=== PATIENT | female | born 1965 | race Caucasian/White ===

== ENCOUNTER 2024-10-12 14:30 | Emergency (ER) | payer OTHER, SELFPAY ==
--- NOTE | 2024-10-12 14:35 | ED_ITS ---
HPI - URI/Sore Throat General Chief Complaint: Upper Respiratory Infection Stated Complaint: Cough/Ear Pain/Body Aches Time Seen by Provider: 10/12/24 14:35 Source: patient Mode of arrival: ambulatory Limitations: no limitations History of Present Illness HPI Narrative: Patient is a 59-year-old female who presents with over 2 weeks of cough, chest congestion, ear pain, sore throat and intermittent fever. Denies any nausea, vomiting, diarrhea. Has taken [id number] medication with no relief. Related Data Home Medications ?Medication ?Instructions ?Recorded ?Confirmed ?Last Taken ?Type buspirone 15 mg tablet mg 10/12/24 Unknown History carvedilol 3.125 mg tablet mg 10/12/24 Unknown History escitalopram oxalate 20 mg tablet mg 10/12/24 Unknown History glimepiride 1 mg tablet mg 10/12/24 Unknown History lisinopril 40 mg tablet mg 10/12/24 Unknown History metformin 1,000 mg tablet mg 10/12/24 Unknown History Allergies Allergy/AdvReac Type Severity Reaction Status Date / Time atenolol Allergy Unknown HIVES Verified 06/17/18 15:01 Review of Systems Review of Systems: All systems reviewed & are unremarkable except as noted in HPI and below Constitutional: Constitutional: Denies chills, Denies fatigue, Reports fever(s), Denies headache(s), Denies malaise and Denies weakness Eyes: Eyes: Denies blurry vision, Denies itchy eyes and Denies loss of vision ENT: Reports otalgia, Denies headache(s), Reports nasal congestion, Denies sinus pain and Denies sore throat Cardiovascular: Cardiovascular: Denies chest pain, Denies irregular heart rhythm and Denies dyspnea Respiratory: Respiratory: Reports chest congestion, Reports cough and Denies dyspnea Gastrointestinal: Gastrointestinal: Denies abdominal pain, Denies diarrhea, Denies nausea and Denies vomiting Musculoskeletal: Musculoskeletal: Denies back pain, Denies myalgias and Denies arthralgias Integumentary/Breasts: Skin/Breast: Denies pruritus and Denies rash Neurologic: Denies headache(s), Denies loss of vision and Denies weakness Psychiatric: Psychiatric: Reports no additional psychiatric complaints Endocrine: Endocrine: Denies fatigue Allergic/Immunologic: Allergic/Immunologic: Denies itchy eyes PMFSH Comments At time of signature, agree with nursing past medical, surgical, social and family history. There is no relevant family history pertinent to the presenting complaint. Exam Const: General: cooperative, healthy appearing, comfortable, no acute distress and well nourished Nutritional Appearance: well nourished Orientation/consciousness: patient oriented x3 Limitations: no limitations HENMT: Head: normal to inspection, normocephalic and atraumatic Ears: hearing grossly normal bilaterally, external ears normal, TM's normal bilaterally, EAC's normal and no periauricular adenopathy Face/Nose/Sinus: Normal external nose present, Abnormal mucous membranes and turbinates present erythematous bilateral and diffuse, normal facial exam, sinuses nontender and face symmetric Face and sinus: normal facial exam, sinuses nontender and face symmetric Mouth: Yes Normal oral and palatal mucosa present, Yes lip normal, Yes tongue normal, Yes Normal salivary glands and ducts present, Yes oropharynx normal and Yes moist mucous membranes Teeth and gingiva: dentition normal Throat: posterior oropharynx normal, tonsils normal and uvula midline Eyes: General: appearance normal, both eyes and all related structures Alignment and Position: alignment normal and position normal Periorbital: periorbital findings normal Eyelids: eyelids normal Pupils: Equal, round and reactive pupils present Neck: Neck: normal visual inspection, full ROM, no lymphadenopathy and supple Chest: Chest palpation & inspection: normal inspection of the chest and normal palpation of entire chest wall Resp: Effort & Inspection: normal respiratory effort, able to speak in com plete sentences and Actively coughing actively coughing Auscultation: clear to auscultation bilaterally, no crackles, no rales, no rhonchi and no wheezes Cardio: Rate: regular rate Rhythm: regular rhythm Heart sounds: S1 normal heart sound present and S2 normal heart sound present GI: Inspection: normal to inspection Skin: General skin exam: normal color and no rashes or lesions noted Neuro: General: patient oriented x3 and moves all extremities Cranial nerves: Yes Equal, round and reactive pupils present Speech: normal speech Gait exam (Neuro): Normal gait present Extrem: General: normal to inspection, full ROM and no edema Psych: Appearance: grossly normal and well kempt Mental Status: mental status grossly normal Speech and movement: Normal speech and movement present Affect: normal affect Attitude: cooperative Thought process: Normal thought process present Course Course Emergency Course: Discharge instructions reviewed with patient, as well as provided in writing per nursing staff. The instructions also include specific and strict return/GO TO THE ER as well as f/u information. All questions have been answered, and the patient deny any further questions with discharge and discharge plan. Portions of this record may have been created with voice recognition software Level of Care: Express Care Visit Vital Signs Vital signs: Reviewed MDM - URI/Sore Throat MDM Narrative Medical decision making narrative: Pt well hydrated appearing, in no respiratory distress, hemodynamically stable. Recommend supportive care. The patient is stable at time of discharge the clinical impression was discussed and the patient was given the opportunity to ask questions, which were addressed as completely as possible given the information available at present. Anticipatory guidance and return to care precautions were discussed and the importance of primary care follow-up was stressed and encouraged. The patient voiced understanding of the plan, indications to return, and the need for follow-up. Differential diagnosis considered: Bronchitis, Norris virus, strep pharyngitis, allergic rhinitis, upper respiratory tract infection, sinusitis, rhinosinusitis, nasopharyngitis. viral pharyngitis, otitis media, otitis externa, otitis effusion, foreign body, cerumen impaction, viral syndrome, and influenza.? Exam findings show no acute concerns or changes; patient is non-toxic appearing and is in no distress.? Patient is appropriate for outpatient treatment and follow- up.? Medical Records Attestation: I reviewed the patient's medical records. Discharge Plan Discharge Clinical Impression: Upper respiratory infection with cough and congestion Patient Disposition: Home, Self-Care Condition: Stable Instructions: Upper Respiratory Infection (ED) Additional Instructions: Take antibiotic as prescribed. Take steroids in the morning with food. Use Tessalon Perles as needed for cough. Other symptomatic treatments include: -Alternate Tylenol and Motrin per package directions for fever or pain: Tylenol 650-1000mg by mouth every 4-6 hours. Do not exceed 4000mg in 24 hours. Advil (Ibuprofen) 600 mg by mouth every 6 hours. Do not exceed 2400mg in 24 hours. 8 AM: Tylenol 11 AM: Ibuprofen 2 PM: Tylenol 5 PM: Ibuprofen 8 PM: Tylenol 11 PM: Ibuprofen 2 AM: Tylenol 5 AM: Ibuprofen -Antihistamine medication such as Benadryl at night and Zyrtec/Claritin/Corrina during the day can help improve symptoms. -Use Flonase twice a day for 5 days then daily to help reduce the inflammation and dry up your sinuses. -You can also use Sudafed or Mucinex. Be sure to drink plenty of water with these medications at least 8 ounces with every dose and it is important to drink 8 to 10 glasses of water per day. Water is a natural decongestant -Eat and drink things that are easy to swallow, like tea or soup, or popsicles. -Oral rinses such as: Salt water gargles and/or may use topical anesthetic (eg. Chloraseptic spray) or lozenges to relieve dryness or throat pain). -Frequent hand washing or hand commercial makeup artist is one of the best ways to prevent spread of infection. -Using a vaporizer or humidifier at night will also help thin secretions and help with coughing up phlegm. Call your Primary Care Doctor and make a follow-up appointment in 3 days. If your cough worsens, you develop a fever greater than 103, you develop shaking chills, a fast heartbeat, trouble breathing and/or feel you are are breathing much faster than usual, call your Primary Care Doctor or go to the ER. Patient Language: Indonesian Prescriptions: New prednisone 20 mg tablet 40 mg PO DAILY 5 Days Qty: 10 0RF amoxicillin 875 mg tablet 875 mg PO Q12H 7 Days Qty: 14 0RF benzonatate 100 mg capsule 100 mg PO BID PRN (Reason: cough) Qty: 14 0RF No Action carvedilol 3.125 mg tablet glimepiride 1 mg tablet metformin 1,000 mg tablet lisinopril 40 mg tablet buspirone 15 mg tablet escitalopram oxalate 20 mg tablet Follow-up/Referrals: Lina,Tristan García MD [Primary Care Provider] - 3 Days Stand Alone Forms: Work/School Release IP Time of Disposition: 15:10
--- OUTSIDE RECORDS SUMMARY | 2024-10-12 14:35 | XMS_ITS | Encounter Summary ---
Author Organization [facility] Address [address] [place] [address] Phone Care Team Providers Care Lease Analyst Name Role Phone Tristan Mills MD Primary Care Provider [phone] Laura Michaels MD Unavailable [phone] Cristofer Wilson MD Unavailable [phone] Esteban Carpenter MD Unavailable Mejia Ayon MD Unavailable Reason for Visit * Reason Comments Medication Refill Encounter Details Date Type Department Care Team (Late st Contact Info) Description 11/21/2023 Refill [facility] - Family Medicine [facility] [address] [place] [id number] Tristan Mills MD [address] [address] Medication Refill Social History Tobacco Use Types Packs/Day Years Used Date Smoking Tobacco: Never Smokeless Tobacco: Never Alcohol Use Standard Drinks/Week Comments Yes 1 (1 standard drink = 0.6 oz pur e alcohol) Socially [facility] Utilities Answer Date Recorded In the past 12 months has [employer] electric, gas, oil, or water company threatened to shut off services in your home? Yes 09/13/2023 Social Connection and Isolat ion Panel [NHANES] Answer Date Recorded In a typical week, how many times do you talk on the phone with family, friends, or neighbors? Once a week 09/13/2023 How often do you get togethe r with friends or relatives? Once a week 09/13/2023 How often do you attend chur ch or temple services? More than 4 times per year 09/13/2023 Do you belong to any clubs o r organizations such as baptist groups, unions, fraternal or athletic groups, or school groups? No 09/13/2023 How often do you attend meet ings of the clubs or organizations you belong to? Patient declined 09/13/2023 Are you , , di vorced, , never , or living with a partner? 09/13/2023 AUDIT-C Answer Date Recorded Q1: How often do you have a drink containing alc ohol? Monthly or less 09/13/2023 Q2: How many drinks containi ng alcohol do you have on a typical day when you are drinking? 1 or 2 09/13/2023 Q3: How often do you have si x or more drinks on one occasion? Never 09/13/2023 Overall Financial Resource Strain (CARDIA) Answe r Date Recorded How hard is it for you to pa y for the very basics like food, housing, medical care, and heating? Somewhat hard 09/13/2023 PHQ-2 Answer Date Recorded Total Score - Questions 1-9 0 04/22 [facility] - Occupational Stress Questionnaire Answer Date Recorded Do you feel stress - tense, restless, nervous, or anxious, or unable to sleep at night because your mind is troubled all the time - these days? Only a little 09/13/2023 Exercise Vital Sign Answer Date Recorde d On average, how many days pe r week do you engage in moderate to strenuous exercise (like a brisk walk)? 0 days On average, how many minutes do you engage in exercise at this level? Patient declined 09/13/2023 Hunger Vital Sign Answer Date Recorded Within the past 12 months, y ou worried that your food would run out before you got the money to buy more. Never true 09/13/19 24 Within the past 12 months, t he food you bought just didn't last and you didn't have money to get more. Never true 09/13/2023 PRAPARE - Transportation Answer Date Re corded In the past 12 months, has l ack of transportation kept you from medical appointments or from getting medications? No 08/23 In the past 12 months, has l ack of transportation kept you from meetings, work, or from getting things needed for daily living? No 09/13/2023 Housing Stability Vital Sign Answer Nicanor e Recorded In the last 12 months, was t here a time when you were not able to pay the mortgage or rent on time? Yes 09/13/2023 In the last 12 months, how many places have you lived? 1 09/13/2023 In the last 12 months, was t here a time when you did not have a steady place to sleep or slept in a fpc (including now)? No 09/13/2023 Education Answer Date Recorded What is the highest level of school you have completed or the highest degree you have received? 12th grade 05/02/2023 Sexually Active Control Partners Comments Not Currently Male Comments No Sex and Gender Information Value Date Recorded Sex Assigned at Not on file Legal Sex Female 8:48 PM CDT Gender Identity Not on file Sexual Orientation Not on file documented as of this encounter Miscellaneous Notes * Telephone Encounter - Magda Bryson RN - 11/22/2023 4:50 PM CDT Medication failed the protocol, provider to review and approve the medication order if appropriate. Requested Prescriptions Pending Prescriptions Disp Refills cyclobenzaprine (FLEXERIL) 5 MG Tablet [Pharmacy Med Name: CYCLOBENZAPRINE 5 MG TABLET] 90 Tablet 0 Sig: TAKE 1 TABLET BY MOUTH THREE TIMES A DAY NEEDED FOR MUSCLE SPASM Not Delegated - Muscle Relaxants Protocol Failed - 11/21/2023 6:28 PM Failed - This refill cannot be delegated Passed - Visit with relevant provider in past 12 months or upcoming 90 days Recent Visits Date Type Provider Dept 09/19/23 Office Visit Tristan Mills MD [facility] 09/19/23 Procedure Visit [facility] 09/13/23 [facility] Office Visit Vinicius Humphrey MD [facility] 05/02/23 Office Visit Brooks Vazquez APRN, SENIOR JAVA PROGRAMMER [facility] Showing recent visits within past 365 days and meeting all other requirements Future Appointments Date Type Provider Dept 12/20/23 Appointment Tristan Mills MD [facility] Showing future appointments within next 90 days and meeting all other requirements metFORMIN (GLUCOPHAGE) 1000 MG Tablet [Pharmacy Med Name: METFORMIN HCL 1,000 MG TABLET] 180 Tablet1 Sig: TAKE 1 TABLET BY MOUTH TWICE A DAY WITH FOOD Biguanides Protocol Failed - 11/21/2023 6:28 PM Failed - HgA1C on record in past 6 months No results found for: HGBA1C Passed - Visit with relevant provider in past 6 months or upcoming 90 days Recent Visits Date Type Provider Dept 09/19/23 [facility] Office Visit Tristan Mills MD [facility] Showing recent visits within past 182 days and meeting all other requirements Future Appointments Date Type Provider Dept 12/20/23 Appointment Tristan Mills MD [facility] Showing future appointments within next 90 days and meeting all other requirements Passed - GFR on record in past 6 months GFR, EST. NONAFRICAN Date Value Ref Range Status 09/17/2023 56 (L) >=60 Final documented in this encounter Plan of Treatment Not on file documented as of this encounter Visit Diagnoses Not on filedocumented in this encounter Additional Health Concerns Assessment Noted Time PHQ-9 Depression Total Score: 0 05/06/20 23 2:49 PM CDT documented as of this encounter Care Teams Lease Analyst Relationship Specialty Start Date End Date Tristan Mills MD #[address] [address] PCP - General Family Medicine 09/01/17 Laura Michaels MD #[address] [address] Consulting Physician Urology 09/25/18 Cristofer Wilson MD #[address] [address] General Surgery 09/25/18 Esteban Carpenter MD #[address] [address] Consulting Physician Colon and Rectal Surgery 10/06/23 Mejia Ayon MD #[address] [id number] Consulting Physician Urology 02/29/24 documented as of this encounter
--- OUTSIDE RECORDS SUMMARY | 2024-10-12 14:35 | XMS_ITS | Encounter Summary ---
Author Organization [facility] Address [address] [place] [address] Phone Care Team Providers Care Track Welder Name Role Phone Tristan Mills MD Primary Care Provider [phone] Laura Michaels MD Unavailable [phone] Cristofer Wilson MD Unavailable [phone] Esteban Carpenter MD Unavailable Mejia Ayon MD Unavailable Reason for Visit * Reason Comments Medication Refill Encounter Details Date Type Department Care Team (Late st Contact Info) Description 06/22/2020 Refill [facility] [address] [place] [address] Tristan Mills MD #[address] [address] Medication Refill Social History Tobacco Use Types Packs/Day Years Used Date Smoking Tobacco: Never Smokeless Tobacco: Never Alcohol Use Standard Drinks/Week Comments Yes 1 (1 standard drink = 0.6 oz pur e alcohol) socially PHQ-2 Answer Date Recorded PHQ-2 Score 0 04/25/2019 Sexually Active Control Partners Comments Yes Male Comments No Sex and Gender Information Value Date Recorded Sex Assigned at Not on file Legal Sex Female 8:48 PM CDT Gender Identity Not on file Sexual Orientation Not on file COVID-19 Exposure Response Date Recorded In the last month, have you been in contact with someone who was confirmed or suspected to have Coronavirus / COVID-19? No / Unsure 06/25/2020 4:11 PM PLASTIC DUPLICATOR documented as of this encounter Miscellaneous Notes * Telephone Encounter - Anayeli Gamboa RN - 06/23/2020 10:54 AM CST Medication failed the protocol, provider to review and approve the medication order if appropriate. Requested Prescriptions Pending Prescriptions Disp Refills escitalopram (LEXAPRO) 20 MG Tablet [Pharmacy Med Name: Escitalopram Oxalate 20 MG Oral Tablet] 90 Tab 0 Sig: Take 1 tablet by mouth once daily Not Delegated - Psychiatry: Antidepressants Failed - 06/22/2020 1:29 PM Failed - This refill cannot be delegated Passed - Valid encounter within last 12 months Past Office Visits Recent Outpatient Visits 3 weeks ago Essential hypertension [facility] - Brooks Raphael APN, CNP 1 month ago Nephrolithiasis [facility] Brooks Raphael APN, CNP 3 months ago Anxiety [facility] - Tristan Lcuiano MD 7 months ago Diabetes mellitus type 2, noninsulin dependent (HCC) [facility] Tristan Luciano MD 11 months ago Diabetes mellitus type 2, noninsulin dependent (HCC) [facility] Tristan Luciano MD Upcoming Appointments Future Appointments In 2 months Tristan Mills MD [facility] [place] [facility] AIR TOOL OPERATOR - Recent and Past Visits Recent Visits Date Type Provider Dept 06/02/20 Office Visit Brooks Vazquez APN, CNP [facility] 05/21/20 Office Visit Brooks Vazquez APN, CNP [facility] 02/29/20 Office Visit Tristan Mills MD [facility] 10/30/19 Office Visit Tristan Mills MD [facility] 07/26/19 Office Visit Tristan Mills MD [facility] 05/28/19 Office Visit Magaly Casey PAC [facility] [place] 04/26/19 Office Visit Tristan Mills MD [facility] Showing recent visits within past 460 days with a meds authorizing provider and meeting all other requirements Future Appointments Date Type Provider Dept 09/02/20 Appointment Tristan Mills MD [facility] Showing future appointments within next 90 days with a meds authorizing provider and meeting all other requirements lisinopril (PRINIVIL, ZESTRIL) 40 MG Tablet [Pharmacy Med Name: Lisinopril 40 MG Oral Tablet] 180 Tab 0 Sig: Take 1 tablet by mouth twice daily Cardiovascular: BART Inhibitors Passed - 06/22/2020 1:29 PM Passed - Valid encounter within last 12 months Past Office Visits Recent Outpatient Visits 3 weeks ago Essential hypertension [facility] Brooks Raphael APN, ELECTRONIC ASSEMBLER 1 month ago Nephrolithiasis [facility] Brooks Raphael APN, ELECTRONIC ASSEMBLER 3 months ago [facility] Luc[facility] 7 months ago Diabetes mellitus type 2, noninsulin dependent (HCC) [facility] Tristan Luciano MD 11 months ago Diabetes mellitus type 2, noninsulin dependent (HCC) [facility] Tristan Nasciemnto MD Upcoming Appointments Future Appointments In 2 months Tristan Mills MD [facility] [place] [facility] AIR TOOL OPERATOR - Recent and Past Visits Recent Visits Date Type Provider Dept 06/02/20 Office Visit Brooks Vazquez APN, [facility] 05/21/20 Office Visit Brooks Vazquez APN, [facility] 02/29/20 Office Visit Tristan Mills MD [facility] 10/30/19 Office Visit Tristan Mills MD [facility] 07/26/19 Office Visit Tristan Mills MD [facility] 05/28/19 Office Visit Magaly Casey PAC [facility] 04/26/19 Office Visit Tristan Mills MD [facility] Showing recent visits within past 460 days with a meds authorizing provider and meeting all other requirements Future Appointments Date Type Provider Dept 09/02/20 Appointment Tristan Mills MD [facility] Showing future appointments within next 90 days with a meds authorizing provider and meeting all other requirements Passed - Last BP in normal range BP Readings from Last 1 Encounters: 06/02/20 96/76 metFORMIN (GLUCOPHAGE) 1000 MG Tablet [Pharmacy Med Name: metFORMIN HCl 1000 MG Oral Tablet] 180 Tab 0 Sig: TAKE 1 TABLET BY MOUTH TWICE DAILY WITH MEALS Endocrinology: Diabetes - Biguanides Passed - 06/22/2020 1:29 PM Passed - Valid encounter within last 12 months Past Office Visits Recent Outpatient Visits 3 weeks ago Essential hypertension [facility] - Brooks Raphael APN, ELECTRONIC ASSEMBLER 1 month ago Nephrolithiasis [facility] Brooks Raphael APN, ELECTRONIC ASSEMBLER 3 months ago Anxiety [facility] - Tristan Luciano MD 7 months ago Diabetes mellitus type 2, noninsulin dependent (HCC) [facility] Tristan Nascimento MD 11 months ago Diabetes mellitus type 2, noninsulin dependent (HCC) [facility] Tristan Nascimento MD Upcoming Appointments Future Appointments In 2 months Tristan Mills MD [facility] [place] [facility] AIR TOOL OPERATOR - Recent and Past Visits Recent Visits Date Type Provider Dept 06/02/20 Office Visit Brooks Vazquez APN, [facility] 05/21/20 Office Visit Brooks Vazquez APN, [facility] 02/29/20 Office Visit Tristan Mills MD [facility] 10/30/19 Office Visit Tristan Mills MD [facility] 07/26/19 Office Visit Tristan Mills MD [facility] 05/28/19 Office Visit Magaly Casey, [facility] 04/26/19 Office Visit Tristan Mills MD [facility] Showing recent visits within past 460 days with a meds authorizing provider and meeting all other requirements Future Appointments Date Type Provider Dept 09/02/20 Appointment Tristan Mills MD [facility] Showing future appointments within next 90 days with a meds authorizing provider and meeting all other requirements Passed - Last BP in normal range BP Readings from Last 1 Encounters: 06/02/20 96/76 TIC DUPLICATOR documented in this encounter Plan of Treatment Not on file documented as of this encounter Visit Diagnoses Not on filedocumented in this encounter Additional Health Concerns Infection Onset Date Last Indicated Resolved Time COVID - 19 03/06/2021 03/06/2021 03/07/2021 8:43 AM CDT COVID - 19 08/13/2021 08/17/2021 09/06/2021 12:1 6 AM PLASTIC DUPLICATOR COVID - 19 Confirmed 08/17/2021 08/17/2021 022 12:16 AM PLASTIC DUPLICATOR COVID - 19 04/11/2022 04/11/2022 04/21/2022 12:1 6 AM CDT COVID - 19 07/28/2022 07/28/2022 08/07/2022 12:1 6 AM PLASTIC DUPLICATOR Influenza 07/28/2022 07/28/2022 08/04/2022 12:1 6 AM PLASTIC DUPLICATOR Respiratory Rule Out - RPA 06/23/2023 06/23/2023 1 08/23/2022 5:23 PM CDT COVID - 19 09/28/2023 09/28/2023 10/08/2023 12:1 6 AM PLASTIC DUPLICATOR Assessment Noted Time PHQ-9 Depression Total Score: 0 10/30/19 20 3:24 PM CDT documented as of this encounter Care Teams Track Welder Relationship Specialty Start Date End Date Tristan Mills MD #2 [facility] [address] [place] [address] PCP - General Family Medicine 09/01/17 Laura Michaels MD #2 [facility] [address] [place] [address] Consulting Physician Urology 09/25/18 Cristofer Wilson MD #2 [facility] [address] [place] [address] General Surgery 09/25/18 Esteban Carpenter MD #2 [facility] [address] [place] [address] Consulting Physician Colon and Rectal Surgery 10/06/23 Mejia Ayon MD #2 [facility] [address] [place] [address] Consulting Physician Urology 02/29/24 documented as of this encounter
--- OUTSIDE RECORDS SUMMARY | 2024-10-12 14:35 | XMS_ITS | Encounter Summary ---
Author Organization [facility] Address [address] [place] [address] Phone Care Team Providers Care Director Revenue Name Role Phone Tristan Mills MD Primary Care Provider [phone] Laura Michaels MD Unavailable [phone] Cristofer Wilson MD Unavailable [phone] Esteban Carpenter MD Unavailable Mejia Ayon MD Unavailable Reason for Visit * Reason Comments Medication Refill Encounter Details Date Type Department Care Team (Late st Contact Info) Description 07/30/2021 Refill [facility] [address] [place] [address] Tristan Mills MD #[address] [address] Medication Refill Social History Tobacco Use Types Packs/Day Years Used Date Smoking Tobacco: Never Smokeless Tobacco: Never Alcohol Use Standard Drinks/Week Comments Yes 1 (1 standard drink = 0.6 oz pur e alcohol) Socially PHQ-2 Answer Date Recorded Total Score - Questions 1-9 0 08/22 Sexually Active Control Partners Comments Not Currently [...] have Coronavirus / COVID-19? No / Unsure 07/24/2021 1:43 PM LACTATION NURSE documented as of this encounter Miscellaneous Notes * Telephone Encounter - Magda Bryson RN - 07/31/2021 7:59 AM CST Medication failed the protocol, provider to review and approve the medication order if appropriate. Requested Prescriptions Pending Prescriptions Disp Refills glimepiride (AMARYL) 1 MG Tablet [Pharmacy Med Name: GLIMEPIRIDE 1 MG TABLET] 90 Tablet 1 Sig: TAKE 1 TABLET BY MOUTH EVERY DAY IN THE MORNING Sulfonylureas Protocol Failed - 07/30/2021 12:03 AM Failed - HgA1C on record in past 6 months HGB-A1C Date Value Ref Range Status 08/30/2020 6.7 (H) 4.0 - 6.0 % Final Failed - GFR on record in past 6 months GFR, EST. NONAFRICAN Date Value Ref Range Status 05/20/2020 55 (L) >=60 Final Passed - Visit with relevant provider in past 6 months or upcoming 90 days Recent Visits Date Type Provider Dept 07/24/21 Office Visit Brooks Vazquez APRN, PRODUCTION CONTROL PEGBOARD CLERK [facility] [place] Showing recent visits within past 182 days and meeting all other requirements Future Appointments Date Type Provider Dept 10/22/21 Appointment Tristan Mills MD [facility] [place] Showing future appointments within next 90 days and meeting all other requirements ATION NURSE documented in this encounter Plan of Treatment Not on file documented as of this encounter Visit Diagnoses Not on filedocumented in this encounter Additional Health Concerns Infection Onset Date Last Indicated Resolved Time COVID - 19 08/13/2021 08/17/2021 09/06/2021 12:1 6 AM LACTATION NURSE COVID - 19 Confirmed 08/17/2021 08/17/2021 022 12:16 AM LACTATION NURSE COVID - 19 04/11/2022 04/11/2022 04/21/2022 12:1 6 AM CDT COVID - 19 07/28/2022 07/28/2022 08/07/2022 12:1 6 AM LACTATION NURSE Influenza 07/28/2022 07/28/2022 08/04/2022 12:1 6 AM LACTATION NURSE Respiratory Rule Out - RPA 06/23/2023 06/23/2023 1 08/23/2022 5:23 PM CDT COVID - 19 09/28/2023 09/28/2023 10/08/2023 12:1 6 AM LACTATION NURSE Assessment Noted Time PHQ-9 Depression Total Score: 0 09/02/19 3:57 PM LACTATION NURSE documented as of this encounter Care Teams Director Revenue Relationship Specialty Start Date End Date Tristan Mills MD #2 [facility] [address] [place] [address] PCP - General Family Medicine 09/01/17 Laura Michaels MD #2 [facility] [address] [place] [address] Consulting Physician Urology 09/25/18 Cristofer Wilson MD #2 [facility] [address] [place] [address] General Surgery 09/25/18 Esteban Carpenter MD #2 [facility] [address] [place] [address] Consulting Physician Colon and Rectal Surgery 10/06/23 Mejia Ayon MD #2 [facility] [address] [place] [id number] Consulting Physician Urology 02/29/24 documented as of this encounter
--- OUTSIDE RECORDS SUMMARY | 2024-10-12 14:35 | XMS_ITS | Encounter Summary ---
Author Organization [facility] Address [address] [place] [address] Phone Care Team Providers Care Manager Of Business Name Role Phone Tristan Mills MD Primary Care Provider [phone] Laura Michaels MD Unavailable [phone] Cristofer Wilson MD Unavailable [phone] Esteban Carpenter MD Unavailable Mejia Ayon MD Unavailable Reason for Visit * Reason Comments Medication Refill Encounter Details Date Type Department Care Team (Late st Contact Info) Description 08/25/2021 Refill [facility] #[address] [place] [id number] Tristan Mills MD #[address] [address] Medication Refill Social History Tobacco Use Types [...] have Coronavirus / COVID-19? No / Unsure 08/13/2021 11:11 AM HEALTH SAFETY AND ENVIRONMENT MANAGER documented as of this encounter Miscellaneous Notes * Telephone Encounter - Holly Mcintosh RN - 08/25/2021 12:41 PM CST Medication failed the protocol, provider to review and approve the medication order if appropriate. Requested Prescriptions Pending Prescriptions Disp Refills lisinopril (PRINIVIL, ZESTRIL) 40 MG Tablet [Pharmacy Med Name: LISINOPRIL 40 MG TABLET] 90 Tablet 3 Sig: TAKE 1/2 TABLET BY MOUTH TWICE DAILY BART Inhibitors Protocol Failed - 08/25/2021 12:00 AM Failed - Serum potassium on record in past 12 months POTASSIUM Date Value Ref Range Status 05/20/2020 5.0 3.5 - 5.1 mmol/L Final Failed - GFR on record in past 12 months GFR, EST. NONAFRICAN Date Value Ref Range Status 05/20/2020 55 (L) >=60 Final Passed - Blood pressure on record in past 12 months Clinician-entered: BP Readings from Last 3 Encounters: 07/24/21 126/72 03/06/21 96/78 09/02/20 128/82 Patient-entered: No data recorded Passed - Visit with relevant provider in past 12 months or upcoming 90 days Recent Visits Date Type Provider Dept 07/24/21 Office Visit Brooks Vazquez APRN, [facility] 09/02/20 Office Visit Tristan Mills MD [facility] Showing recent visits within past 365 days and meeting all other requirements Future Appointments Date Type Provider Dept 10/22/21 Appointment Tristan Mills MD [facility] Showing future appointments within next 90 days and meeting all other requirements TH SAFETY AND ENVIRONMENT MANAGER documented in this encounter Plan of Treatment Not on file documented as of this encounter Visit Diagnoses Not on filedocumented in this encounter Additional Health Concerns Infection Onset Date Last Indicated Resolved Time COVID - 19 08/13/2021 08/17/2021 09/06/2021 12:1 6 AM HEALTH SAFETY AND ENVIRONMENT MANAGER COVID - 19 Confirmed 08/17/2021 08/17/2021 022 12:16 AM HEALTH SAFETY AND ENVIRONMENT MANAGER COVID - 19 04/11/2022 04/11/2022 04/21/2022 12:1 6 AM CDT COVID - 19 07/28/2022 07/28/2022 08/07/2022 12:1 6 AM HEALTH SAFETY AND ENVIRONMENT MANAGER Influenza 07/28/2022 07/28/2022 08/04/2022 12:1 6 AM HEALTH SAFETY AND ENVIRONMENT MANAGER Respiratory Rule Out - RPA 06/23/2023 06/23/2023 1 08/23/2022 5:23 PM CDT COVID - 19 09/28/2023 09/28/2023 10/08/2023 12:1 6 AM HEALTH SAFETY AND ENVIRONMENT MANAGER Assessment Noted Time PHQ-9 Depression Total Score: 0 09/02/19 3:57 PM HEALTH SAFETY AND ENVIRONMENT MANAGER documented as of this encounter Care Teams Manager Of Business Relationship Specialty Start Date End Date Tristan Mills MD #2 [facility] [address] [place] [address] PCP - General Family Medicine 09/01/17 Laura Michaels MD #2 [facility] [address] [place] [address] Consulting Physician Urology 09/25/18 Cristofer Wilson MD #2 [facility] [address] [place] [address] General Surgery 09/25/18 Esteban Carpenter MD #2 [facility] [address] [place] [address] Consulting Physician Colon and Rectal Surgery 10/06/23 Mejia Ayon MD #[address] [address] Consulting Physician Urology 02/29/24 documented as of this encounter
--- OUTSIDE RECORDS SUMMARY | 2024-10-12 14:35 | XMS_ITS | Encounter Summary ---
Author Organization [facility] Address [address] [place] [address] [address] Phone Care Team Providers Care Steel Rule Die Maker Name Role Phone Tristan Mills MD Primary Care Provider [phone] Laura Michaels MD Unavailable [phone] Cristofer Wilson MD Unavailable [phone] Esteban Carpenter MD Unavailable Mejia Ayon MD Unavailable Reason for Visit * Reason Comments Medication Refill Encounter Details Date Type Department Care Team (Late st Contact Info) Description 05/26/2020 [facility] [address] [place] [address] Tristan Mills MD #[address] [address] Medication Refill Social History Tobacco Use Types [...] have Coronavirus / COVID-19? No / Unsure 05/21/2020 3:36 PM CDT documented as of this encounter Miscellaneous Notes * Telephone Encounter - Lucina Vick - 05/27/2020 10:52 AM CDT Unable to sign per policy Routing for provider review and approval Thanks! documented in this encounter Plan of Treatment Not on file documented as of this encounter Visit Diagnoses Not on filedocumented in this encounter Additional Health Concerns Infection Onset Date Last Indicated Resolved Time COVID - 19 03/06/2021 03/06/2021 03/07/2021 8:43 AM CDT COVID - 19 08/13/2021 08/17/2021 09/06/2021 12:1 6 AM BUNCH TRIMMER MOLD COVID - 19 Confirmed 08/17/2021 08/17/2021 022 12:16 AM BUNCH TRIMMER MOLD COVID - 19 04/11/2022 04/11/2022 04/21/2022 12:1 6 AM CDT COVID - 19 07/28/2022 07/28/2022 08/07/2022 12:1 6 AM BUNCH TRIMMER MOLD Influenza 07/28/2022 07/28/2022 08/04/2022 12:1 6 AM BUNCH TRIMMER MOLD Respiratory Rule Out - RPA 06/23/2023 06/23/2023 1 08/23/2022 5:23 PM CDT COVID - 19 09/28/2023 09/28/2023 10/08/2023 12:1 6 AM BUNCH TRIMMER MOLD Assessment Noted Time PHQ-9 Depression Total Score: 0 10/30/19 20 3:24 PM CDT documented as of this encounter Care Teams Steel Rule Die Maker Relationship Specialty Start Date End Date Tristan Mills MD #2 [place] [address] PCP - General Family Medicine 09/01/17 Laura Michaels MD #2 [facility] [address] [place] [address] Consulting Physician Urology 09/25/18 Cristofer Wilson MD #2 [facility] [address] [place] [address] General Surgery 09/25/18 Esteban Carpenter MD #[address] [address] Consulting Physician Colon and Rectal Surgery 10/06/23 Mejia Ayon MD #2 [facility] [address] [place] [phone] Consulting Physician Urology 02/29/24 documented as of this encounter
--- OUTSIDE RECORDS SUMMARY | 2024-10-12 14:35 | XMS_ITS | Encounter Summary ---
Author Organization [facility] Address [address] [address] Phone Care Team Providers Care Copy And Print Associate Name Role Phone Tristan Mills MD Primary Care Provider [phone] Laura Michaels MD Unavailable [phone] Cristofer Wilson MD Unavailable [phone] Esteban Carpenter MD Unavailable Mejia Ayon MD Unavailable Reason for Visit * Reason Comments Medication Refill Encounter Details Date Type Department Care Team (Late st Contact Info) Description 11/27/2020 Refill [facility] #2 [place] [id number] Tristan Mills MD [address] [address] Medication Refill Social History Tobacco Use Types Packs/Day Years Used Date Smoking Tobacco: Never Smokeless Tobacco: Never Alcohol Use Standard Drinks/Week Comments Yes 1 (1 standard drink = 0.6 oz pur e alcohol) socially PHQ-2 Answer Date Recorded Total Score - Questions 1-9 0 08/22 Sexually Active Control Partners Comments Yes Male Comments No Sex and Gender Information Value Date Recorded Sex Assigned at Not on file Legal Sex Female 8:48 PM CDT Gender Identity Not on file Sexual Orientation Not on file documented as of this encounter Miscellaneous Notes * Telephone Encounter - Kristen Guallpa RN - 11/27/2020 10:38 AM CDT PDMP last fill date 11/09/20 Medication failed the protocol, provider to review and approve the medication order if appropriate. Requested Prescriptions Pending Prescriptions Disp Refills acetaminophen-codeine (TYLENOL #3) 300-30 MG Tablet [Pharmacy Med Name: ACETAMINOPHEN-COD #3 TABLET] 14 Tablet 4 Sig: TAKE 1 TABLET BY MOUTH TWICE A DAY NEEDED FOR PAIN Not Delegated - Analgesics: Opioid Agonist Combinations Failed - 11/27/2020 10:38 AM Failed - This refill cannot be delegated Passed - Valid encounter within last 6 months Past Office Visits Recent Outpatient Visits 2 months ago Diabetes mellitus type 2, noninsulin dependent (HCC) [facility] - Tristan Luciano MD 4 months ago Chronic right shoulder pain [facility] - Brooks Raphael APN, NILES 5 months ago Left inguinal hernia [facility] Tristan Luciano MD 5 months ago Essential hypertension [facility] - rBooks Raphael APN, NILES 6 months ago Nephrolithiasis [facility] - Brooks aRphael APN, SENIOR QUALITY METHODS SPECIALIST Upcoming Appointments Future Appointments In 5 days Tristan Mills MD [facility]ESS [facility]PER[facility] - Recent and Past Visits Recent Visits Date Type Provider Dept 09/02/20 Office Visit Tristan Mills MD [facility] 07/25/20 Office Visit Brooks Vazquez APN, NILES [facility] 06/25/20 Office Visit Tristan Mills MD [facility] 06/02/20 Office [place] [facility] 05/21/20 Office Visit Brooks Vazquez APN, SENIOR QUALITY METHODS SPECIALIST [facility] 02/29/20 Office Visit Tristan Mills MD [facility] 10/30/19 Office Visit Tristan Mills MD [facility] Showing recent visits within past 460 days with a meds authorizing provider and meeting all other requirements Future Appointments Date Type Provider Dept 12/02/20 Appointment Tristan Mills MD [facility] Showing future appointments within next 90 days with a meds authorizing provider and meeting all other requirements documented in this encounter Plan of Treatment Not on file documented as of this encounter Visit Diagnoses Not on filedocumented in this encounter Additional Health Concerns Infection Onset Date Last Indicated Resolved Time COVID - 19 03/06/2021 03/06/2021 03/07/2021 8:43 AM CDT COVID - 19 08/13/2021 08/17/2021 09/06/2021 12:1 6 AM GRADUATE INTERNSHIP COVID - 19 Confirmed 08/17/2021 08/17/2021 022 12:16 AM GRADUATE INTERNSHIP COVID - 19 04/11/2022 04/11/2022 04/21/2022 12:1 6 AM CDT COVID - 19 07/28/2022 07/28/2022 08/07/2022 12:1 6 AM GRADUATE INTERNSHIP Influenza 07/28/2022 07/28/2022 08/04/2022 12:1 6 AM GRADUATE INTERNSHIP Respiratory Rule Out - RPA 06/23/2023 06/23/2023 1 08/23/2022 5:23 PM CDT COVID - 19 09/28/2023 09/28/2023 10/08/2023 12:1 6 AM GRADUATE INTERNSHIP Assessment Noted Time PHQ-9 Depression Total Score: 0 09/02/19 3:57 PM GRADUATE INTERNSHIP documented as of this encounter Care Teams Copy And Print Associate Relationship Specialty Start Date End Date Tristan Mills MD #[address] [address] PCP - General Family Medicine 09/01/17 Laura Michaels MD #2 [facility] [address] [place] [address] Consulting Physician Urology 09/25/18 Cristofer Wilson MD #2 [facility] [address] [place] [address] General Surgery 09/25/18 Esteban Carpenter MD #2 [facility] [address] [place] [address] Consulting Physician Colon and Rectal Surgery 10/06/23 Mejia Ayon MD #2 [facility] [address] [place] [phone] Consulting Physician Urology 02/29/24 documented as of this encounter
--- OUTSIDE RECORDS SUMMARY | 2024-10-12 14:35 | XMS_ITS | Encounter Summary ---
Author Organization [facility] Address [address] [place] [address] [address] Phone Care Team Providers Care Renewable Energy Broker Name Role Phone Tristan Mills MD Primary Care Provider [phone] Laura Michaels MD Unavailable [phone] Cristofer Wlison MD Unavailable [phone] Esteban Carpenter MD Unavailable Mejia Ayon MD Unavailable Reason for Visit * Reason Comments Medication Refill Encounter Details Date Type Department Care Team (Late st Contact Info) Description 10/02/2023 Refill [facility] #2 [place] [address] Tristan Mills MD #[address] [address] Medication Refill Social History Tobacco Use Types Packs/Day Years Used Date Smoking Tobacco: Never Smokeless Tobacco: Never Alcohol Use Standard Drinks/Week Comments Yes 1 (1 standard drink = 0.6 oz pur e alcohol) Socially [facility] Utilities Answer Date Recorded In the past 12 months has [employer] electric, gas, oil, or water company threatened [...] often do you attend chur ch or yazidism services? More than 4 times per year 09/13/2023 Do you belong to any clubs o r organizations such as oriental orthodox groups, unions, fraternal or athletic groups, or [...] Total Score - Questions 1-9 0 04/22 [facility] - Occupational Stress [...] place to sleep or slept in a long term (including now)? No 09/13/2023 Education Answer Date [...] Telephone Encounter - Magda Bryson RN - 10/03/2023 10:40 AM CST Medication failed the protocol, provider to review and approve the medication order if appropriate. Requested Prescriptions Pending Prescriptions Disp Refills busPIRone (BUSPAR) 15 MG Tablet [Pharmacy Med Name: BUSPIRONE HCL 15 MG TABLET] 90 Tablet 3 Sig: TAKE 1 TABLET BY MOUTH THREE TIMES A DAY Buspirone (6 Month Refill Only) Protocol Passed - 10/02/2023 2:25 PM Passed - Visit with relevant provider in past 6 months or upcoming 90 days Recent Visits Date Type Provider Dept 09/19/23 Office Visit [place] [facility] 09/19/23 Procedure [facility] Office Visit Tristan Mills MD [facility] 05/06/23 Office Visit Vinicius Humphrey MD [facility] 05/02/23 Office Visit Brooks [facility]az[facility] APRN, [facility] Showing recent visits within past 182 days and meeting all other requirements Future Appointments Date Type Provider Dept 12/20/23 Appointment Tristan Mills MD [facility] Showing future appointments within next 90 days and meeting all other requirements Passed - Has an encounter in the past 6 months with a depression or anxiety visit diagnosis Passed - Patient has established therapy with Buspirone for at least 6 months cyclobenzaprine (FLEXERIL) 5 MG Tablet [Pharmacy Med Name: CYCLOBENZAPRINE 5 MG TABLET] 90 Tablet 0 Sig: TAKE 1 TABLET BY MOUTH THREE TIMES A DAY NEEDED FOR MUSCLE SPASM Not Delegated - Muscle Relaxants Protocol Failed - 10/02/2023 2:25 PM Failed - This refill cannot be delegated Passed - Visit with relevant provider in past 12 months or upcoming 90 days Recent Visits Date Type Provider Dept 09/19/23 Office Visit Tristan Mills MD [facility] 09/19/23 Procedure [facility] 09/13/23 Office Visit Tristan Mills MD [facility] 05/06/23 Office Visit Vinicius Humphrey MD [facility] 05/02/23 Office Visit Brooks Vazquez APRN, [facility]IL[facility] 10/05/22 Office Visit Tristan Mills MD [facility] Showing recent visits within past 365 days and meeting all other requirements Future Appointments Date Type Provider Dept 12/20/23 Appointment Tristan Mills MD [facility] Showing future appointments within next 90 days and meeting all other requirements ER MIXER documented in this encounter Plan of Treatment Not on file documented as of this encounter Visit Diagnoses Not on filedocumented in this encounter Additional Health Concerns Infection Onset Date Last Indicated Resolved Time COVID - 19 09/28/2023 09/28/2023 10/08/2023 12:1 6 AM RUBBER MIXER Assessment Noted Time PHQ-9 Depression Total Score: 0 05/06/20 2:49 PM CDT documented as of this encounter Care Teams Renewable Energy Broker Relationship Specialty Start Date End Date Tristan Mills MD #2 [facility] [address] [place] [address] PCP - General Family Medicine 09/01/17 Laura Michaels MD #2 [facility] [address] [place] [address] Consulting Physician Urology 09/25/18 Cristofer Wilson MD #2 [facility] [address] [place] [address] General Surgery 09/25/18 Esteban Carpenter MD #2 [facility] [address] [place] [address] Consulting Physician Colon and Rectal Surgery 10/06/23 Mejia Ayon MD #2 [facility] [address] [place] [address] Consulting Physician Urology 02/29/24 documented as of this encounter
--- OUTSIDE RECORDS SUMMARY | 2024-10-12 14:35 | XMS_ITS | Encounter Summary ---
Author Organization [facility] Address [address] [place] [address] Phone Care Team Providers Care Clinical Document Improvement Educator Name Role Phone Tristan Mills MD Primary Care Provider [phone] Laura Michaels MD Unavailable [phone] Cristofer Wilson MD Unavailable [phone] Estbean Carpenter MD Unavailable Mejia Ayon MD Unavailable Reason for Visit * Reason Comments Medication Refill Encounter Details Date Type Department Care Team (Late st Contact Info) Description [facility] [address] [place] [address] Tristan Mills MD #[address] [address] Medication Refill Social History Tobacco Use Types [...] encounter Miscellaneous Notes * Telephone Encounter - Krystal James RN - 01/31/2020 7:07 PM CDT Requested Prescriptions Pending Prescriptions Disp Refills EPINEPHrine (EPIPEN) 0.3 MG/0.3ML Solution Auto-injector [Pharmacy Med Name: EPINEPHRINE 0.3 MG AUTO-INJECT] 0 Sig: INJECT 0.3 ML INTRAMUSCULARLY ONCE NEEDED FOR ANAPHYLAXIS Not Delegated - Immunology: Antidotes Failed - 01/31/2020 6:45 PM Failed - This refill cannot be delegated Passed - Valid encounter within last 12 months Past Office Visits Recent Outpatient Visits 3 months ago Diabetes mellitus type 2, noninsulin dependent (HCC) [facility] Tristan Mills MD 6 months ago Diabetes mellitus type 2, noninsulin dependent (HCC) [facility] Tristan Mills MD 8 months ago Right lower quadrant abdominal pain [facility] Magaly Casey PAC 9 months ago URI, acute [facility] Tristan Mills MD 1 year ago Diabetes mellitus type 2, noninsulin dependent (HCC) [facility] Tristan Mills MD Upcoming Appointments Future Appointments In 2 weeks Laura Michaels MD [facility], [facility] In 4 weeks Tristan Mills MD [facility], [facility] documented in this encounter Plan of Treatment Not on file documented as of this encounter Visit Diagnoses Not on filedocumented in this encounter Additional Health Concerns Infection Onset Date Last Indicated Resolved Time COVID - 19 03/06/2021 03/06/2021 03/07/2021 8:43 AM CDT COVID - 19 08/13/2021 08/17/2021 09/06/2021 12:1 6 AM CREDIT PRODUCT ANALYST COVID - 19 Confirmed 08/17/2021 08/17/2021 022 12:16 AM CREDIT PRODUCT ANALYST COVID - 19 04/11/2022 04/11/2022 04/21/2022 12:1 6 AM CDT COVID - 19 07/28/2022 07/28/2022 08/07/2022 12:1 6 AM CREDIT PRODUCT ANALYST Influenza 07/28/2022 07/28/2022 08/04/2022 12:1 6 AM CREDIT PRODUCT ANALYST Respiratory Rule Out - RPA 06/23/2023 06/23/2023 1 08/23/2022 5:23 PM CDT COVID - 19 09/28/2023 09/28/2023 10/08/2023 12:1 6 AM CREDIT PRODUCT ANALYST Assessment Noted Time PHQ-9 Depression Total Score: 0 10/30/19 20 3:24 PM CDT documented as of this encounter Care Teams Clinical Document Improvement Educator Relationship Specialty Start Date End Date Tristan Mills MD #2 [facility] [address] [place] [address] PCP - General Family Medicine 09/01/17 Laura Michaels MD #2 [facility] [address] [place] [address] Consulting Physician Urology 09/25/18 Cristofer Wilson MD #2 [facility] [address] [place] [address] General Surgery 09/25/18 Esteban Carpenter MD #2 [facility] [address] [place] [address] Consulting Physician Colon and Rectal Surgery 10/06/23 Mejia Ayon MD #[address] [facility] [address] [place] [phone] Consulting Physician Urology 02/29/24 documented as of this encounter
--- OUTSIDE RECORDS SUMMARY | 2024-10-12 14:35 | XMS_ITS | Encounter Summary ---
Author Organization [facility] Address [address] [place] [address] [address] Phone Care Team Providers Care Storage Battery Inspector Name Role Phone Tristan Mills MD Primary Care Provider [phone] Laura Michaels MD Unavailable [phone] Cristofer Wilson MD Unavailable [phone] Esteban Carpenter MD Unavailable Mejia Ayon MD Unavailable Reason for Visit * Reason Comments Medication Refill Encounter Details Date Type Department Care Team (Late st Contact Info) Description [facility] [address] [place] [address] Tristan Mills MD #[address] [address] Medication Refill Social History Tobacco Use Types [...] COVID-19? No / Unsure 08/13/2021 11:11 AM DIVISION OPERATIONS SPECIALIST documented as of this encounter Miscellaneous Notes * Telephone Encounter - Magda Bryson RN - 08/13/2021 9:58 AM CST Medication failed the protocol, provider to review and approve the medication order if appropriate. Requested Prescriptions Pending Prescriptions Disp Refills carvedilol (COREG) 3.125 MG Tablet [Pharmacy Med Name: CARVEDILOL 3.125 MG TABLET] 180 Tablet 3 Sig: TAKE 1 TABLET BY MOUTH TWICE A DAY Beta-Blockers Protocol Passed - 08/13/2021 12:02 AM Passed - BP on record in the past year Clinician-entered: BP Readings from Last 3 Encounters: [...] 90 days and meeting all other requirements escitalopram (LEXAPRO) 20 MG Tablet [Pharmacy Med Name: ESCITALOPRAM 20 MG TABLET] 90 Tablet 3 Sig: TAKE 1 TABLET BY MOUTH EVERY DAY SSRI (6 Month Refill Only) Protocol Failed - 08/13/2021 12:02 AM Failed - Has an encounter in the past 6 months with a depression, anxiety, adjustment disorder, OCD, or PTSD visit diagnosis Passed - Visit with relevant provider in past 6 months or upcoming 90 days Recent Visits Date Type Provider Dept 07/24/21 Office Visit Brooks Vazquez APRN, NILES [facility] Showing recent visits within past 182 days and meeting all other requirements Future Appointments Date Type Provider Dept 10/22/21 Appointment Tristan Mills MD [facility] Showing future appointments within next 90 days and meeting all other requirements Passed - Patient has established therapy with SSRI for at least 6 months SION OPERATIONS SPECIALIST documented in this encounter Plan of Treatment Not on file documented as of this encounter Visit Diagnoses Not on filedocumented in this encounter Additional Health Concerns Infection Onset Date Last Indicated Resolved Time COVID - 19 08/13/2021 08/17/2021 09/06/2021 12:1 6 AM DIVISION OPERATIONS SPECIALIST COVID - 19 Confirmed 08/17/2021 08/17/2021 022 12:16 AM DIVISION OPERATIONS SPECIALIST COVID - 19 04/11/2022 04/11/2022 04/21/2022 12:1 6 AM CDT COVID - 19 07/28/2022 07/28/2022 08/07/2022 12:1 6 AM DIVISION OPERATIONS SPECIALIST Influenza 07/28/2022 07/28/2022 08/04/2022 12:1 6 AM DIVISION OPERATIONS SPECIALIST Respiratory Rule Out - RPA 06/23/2023 06/23/2023 1 08/23/2022 5:23 PM CDT COVID - 19 09/28/2023 09/28/2023 10/08/2023 12:1 6 AM DIVISION OPERATIONS SPECIALIST Assessment Noted Time PHQ-9 Depression Total Score: 0 09/02/19 21 3:57 PM DIVISION OPERATIONS SPECIALIST documented as of this encounter Care Teams Storage Battery Inspector Relationship Specialty Start Date End Date Tristan Mills MD #[address] [address] PCP - General Family Medicine 09/01/17 Laura Michaels MD #[address] [address] Consulting Physician Urology 09/25/18 Cristofer Wilson MD #2 [facility] [address] [place] [address] General Surgery 09/25/18 Esteban Carpenter MD #2 [facility] [address] [place] [address] Consulting Physician Colon and Rectal Surgery 10/06/23 Mejia Ayon MD #2 [facility] [address] [place] [address] Consulting Physician Urology 02/29/24 documented as of this encounter
--- OUTSIDE RECORDS SUMMARY | 2024-10-12 14:35 | XMS_ITS | Encounter Summary ---
Author Organization [facility] Address [address] [address] Phone Care Team Providers Care Hydraulic Chair Assembler Name Role Phone Tristan Mills MD Primary Care Provider [phone] Laura Michaels MD Unavailable [phone] Cristofer Wilson MD Unavailable [phone] Esteban Carpenter MD Unavailable Mejia Ayon MD Unavailable Reason for Visit * Reason Comments Medication Refill Encounter Details Date Type Department Care Team (Late st Contact Info) Description [facility] [address] [place] [address] Tristan Mills MD #[address] [address] Medication Refill Social History Tobacco Use Types [...] have Coronavirus / COVID-19? No / Unsure 02/14/2020 3:20 PM CDT documented as of this encounter Miscellaneous Notes * Telephone Encounter - Fracisco Live RN - 02/20/2020 9:40 AM CDT Requested Prescriptions Pending Prescriptions Disp Refills busPIRone (BUSPAR) 15 MG Tablet [Pharmacy Med Name: busPIRone HCl 15 MG Oral Tablet] 60 Tab 0 Sig: TAKE 1 TABLET BY MOUTH TWICE DAILY Not Delegated - Psychiatry: Anxiolytics/Hypnotics Failed - 02/19/2020 7:55 AM Failed - This refill cannot be delegated Passed - Valid encounter within last 6 months Past Office Visits Recent Outpatient Visits 3 months ago Diabetes mellitus type 2, noninsulin dependent (HCC) [facility] Tristan Mills MD 6 months ago Diabetes mellitus type 2, noninsulin dependent (HCC) [facility] Tristan Mills MD 8 months ago Right lower quadrant abdominal pain [facility] Magaly Lucia PAC 10 months ago URI, acute [facility] Tristan Almazan MD 1 year ago Diabetes mellitus type 2, noninsulin dependent (HCC) [facility] Tristan Almazan MD Upcoming Appointments Future Appointments In 1 week Tristan Mills MD [facility], [facility] documented in this encounter Plan of Treatment Not on file documented as of this encounter Visit Diagnoses Not on filedocumented in this encounter Additional Health Concerns Infection Onset Date Last Indicated Resolved Time COVID - 19 03/06/2021 03/06/2021 03/07/2021 8:43 AM CDT COVID - 19 08/13/2021 08/17/2021 09/06/2021 12:1 6 AM BLOOD BANK CALENDAR CONTROL CLERK COVID - 19 Confirmed 08/17/2021 08/17/2021 022 12:16 AM BLOOD BANK CALENDAR CONTROL CLERK COVID - 19 04/11/2022 04/11/2022 04/21/2022 12:1 6 AM CDT COVID - 19 07/28/2022 07/28/2022 08/07/2022 12:1 6 AM BLOOD BANK CALENDAR CONTROL CLERK Influenza 07/28/2022 07/28/2022 08/04/2022 12:1 6 AM BLOOD BANK CALENDAR CONTROL CLERK Respiratory Rule Out - RPA 06/23/2023 06/23/2023 1 08/23/2022 5:23 PM CDT COVID - 19 09/28/2023 09/28/2023 10/08/2023 12:1 6 AM BLOOD BANK CALENDAR CONTROL CLERK Assessment Noted Time PHQ-9 Depression Total Score: 0 10/30/19 20 3:24 PM CDT documented as of this encounter Care Teams Hydraulic Chair Assembler Relationship Specialty Start Date End Date Tristan Mills MD #[address] [address] PCP - General Family Medicine 09/01/17 Laura Michaels MD #[address] [address] Consulting Physician Urology 09/25/18 Cristofer Wilson MD #2 [facility] [address] [place] [address] General Surgery 09/25/18 Esteban Carpenter MD #[address] [address] Consulting Physician Colon and Rectal Surgery 10/06/23 Mejia Ayon MD #[address] [address] Consulting Physician Urology 02/29/24 documented as of this encounter
--- OUTSIDE RECORDS SUMMARY | 2024-10-12 14:35 | XMS_ITS | Encounter Summary ---
Author Organization [facility] Address [address] [address] Phone Care Team Providers Care Business Employment Specialist Name Role Phone Tristan Mills MD Primary Care Provider [phone] Laura Michaels MD Unavailable [phone] Cristofer Wilson MD Unavailable [phone] Esteban Carpenter MD Unavailable Mejia Ayon MD Unavailable Reason for Visit * Reason Comments Medication Refill Encounter Details Date Type Department Care Team (Late st Contact Info) Description 02/02/2024 Refill [facility] #2 [place] [address] Tristan Mills MD #[address] [address] Medication Refill Social History Tobacco Use Types Packs/Day Years Used Date Smoking Tobacco: Never Smokeless Tobacco: Never Alcohol Use Standard Drinks/Week Comments Yes 1 (1 standard drink = 0.6 oz pur e alcohol) Socially [facility] Utilities Answer Date Recorded In the past 12 months has [employer] electric, gas, oil, or water company threatened [...] often do you attend chur ch or episcopalian services? More than 4 times per year 09/13/2023 Do you belong to any clubs o r organizations such as druze groups, unions, fraternal or athletic groups, or [...] Total Score - Questions 1-9 0 04/22 [facility] - Occupational Stress [...] place to sleep or slept in a assisted (including now)? No 09/13/2023 Education Answer Date [...] Telephone Encounter - Magda Bryson RN - 02/02/2024 11:03 AM CDT Medication failed the protocol, provider to review and approve the medication order if appropriate. Requested Prescriptions Pending Prescriptions Disp Refills busPIRone (BUSPAR) 15 MG Tablet [Pharmacy Med Name: BUSPIRONE HCL 15 MG TABLET] 90 Tablet 3 Sig: TAKE 1 TABLET BY MOUTH THREE TIMES A DAY Buspirone (6 Month Refill Only) Protocol Failed - 02/02/2024 9:16 AM Failed - Has an encounter in the past 6 months with a depression or anxiety visit diagnosis Passed - Visit with relevant provider in past 6 months or upcoming 90 days Recent Visits Date Type Provider Dept 12/22/23 Telemedicine Tristan Mills MD [facility] 09/19/23 Office Visit Tristan Mills MD [facility] 09/13/23 Office Visit Tristan iMlls MD [facility] Showing recent visits within past 182 days and meeting all other requirements Future Appointments No visits were found meeting these conditions. Showing future appointments within next 90 days and meeting all other requirements Passed - Patient has established therapy with Buspirone for at least 6 months documented in this encounter Plan of Treatment Not on file documented as of this encounter Visit Diagnoses Not on filedocumented in this encounter Additional Health Concerns Assessment Noted Time PHQ-9 Depression Total Score: 0 05/06/20 23 2:49 PM CDT documented as of this encounter Care Teams Business Employment Specialist Relationship Specialty Start Date End Date Tristan Mills MD #2 [facility] [address] [place] [address] PCP - General Family Medicine 09/01/17 Laura Michaels MD #2 [facility] [address] [place] [address] Consulting Physician Urology 09/25/18 Cristofer Wilson MD #2 [facility] [address] [place] [address] General Surgery 09/25/18 Esteban Carpenter MD #2 [facility] [address] [place] [address] Consulting Physician Colon and Rectal Surgery 10/06/23 Mejia Ayon MD #2 [facility] [address] [place] [id number] Consulting Physician Urology 02/29/24 documented as of this encounter
--- OUTSIDE RECORDS SUMMARY | 2024-10-12 14:35 | XMS_ITS | Encounter Summary ---
Author Organization [facility] Address [address] [place] [address] [address] Phone Care Team Providers Care Nursing Student Name Role Phone Tristan Mills MD Primary Care Provider [phone] Laura Michaels MD Unavailable [phone] Cristofer Wilson MD Unavailable [phone] Esteban Carpenter MD Unavailable Mejia Ayon MD Unavailable Reason for Visit * Reason Comments Medication Refill Encounter Details Date Type Department Care Team (Late st Contact Info) Description 02/22/2021 Refill [facility] - Family Medicine - [place] #2 [place] [id number] Brooks Vazquez, GARBAGE PICK UP MAN, OPTOMETRIC COORDINATOR #[address] [address] Medication Refill Social History Tobacco Use Types [...] Telephone Encounter - Magda Bryson RN - 02/25/2021 8:37 AM CDT Medication failed the protocol, provider to review and approve the medication order if appropriate. Requested Prescriptions Pending Prescriptions Disp Refills cyclobenzaprine (FLEXERIL) 5 MG Tablet [Pharmacy Med Name: CYCLOBENZAPRINE 5 MG TABLET] 90 Tablet 1 Sig: TAKE 1 TAB BY MOUTH 3 TIMES DAILY NEEDED FOR MUSCLE SPASMS. [facility] Not Delegated - Analgesics: Muscle Relaxants Failed - 02/22/2021 9:38 PM Failed - This refill cannot be delegated Passed - Valid encounter within last 6 months Past Office Visits Recent Outpatient Visits 5 months ago Diabetes mellitus type 2, noninsulin dependent (HCC) [facility] - Family [facility] - Tristan Luciano MD 7 months ago Chronic right shoulder pain [facility] - Brooks Raphael APN, OPTOMETRIC COORDINATOR 8 months ago [facility] Tristan Luciano MD 8 months ago [facility] Brooks Raphael APN, NILES 9 months ago [facility] Raphael APN, OPTOMETRIC COORDINATOR Upcoming Appointments WEAVER NEEDLE LOOM - Recent and Past Visits Recent Visits Date Type Provider Dept 09/02/20 Office Visit Tristan Mills MD [facility] 07/25/20 Office Visit Brooks Vazquez APN, NILES [facility] 06/25/20 Office Visit Tristan Mills MD [facility] 06/02/20 Office Visit Brooks Vazquez APN, NILES [facility] 05/21/20 Office Visit Brooks Vazquez APN, NILES [facility] 02/29/20 Office Visit Tristan Mills MD [facility] [...] 19 08/13/2021 08/17/2021 09/06/2021 12:1 6 AM REFRIGERATOR TESTER COVID - 19 Confirmed 08/17/2021 08/17/2021 022 12:16 AM REFRIGERATOR TESTER COVID - 19 04/11/2022 04/11/2022 04/21/2022 12:1 6 AM CDT COVID - 19 07/28/2022 07/28/2022 08/07/2022 12:1 6 AM REFRIGERATOR TESTER Influenza 07/28/2022 07/28/2022 08/04/2022 12:1 6 AM REFRIGERATOR TESTER Respiratory Rule Out - RPA 06/23/2023 06/23/2023 1 08/23/2022 5:23 PM CDT COVID - 19 09/28/2023 09/28/2023 10/08/2023 12:1 6 AM REFRIGERATOR TESTER Assessment Noted Time PHQ-9 Depression Total Score: 0 09/02/19 21 3:57 PM REFRIGERATOR TESTER documented as of this encounter Care Teams Nursing Student Relationship Specialty Start Date End Date Tristan Mills MD #[address] [address] PCP - General Family Medicine 09/01/17 Laura Michaels MD #[address] [address] Consulting Physician Urology 09/25/18 Cristofer Wilson MD #2 [facility] [address] [place] [address] General Surgery 09/25/18 Esteban Carpenter MD #2 [facility] [address] [place] [address] Consulting Physician Colon and Rectal Surgery 10/06/23 Mejia Ayon MD #2 [facility] [address] [place] [address] Consulting Physician Urology 02/29/24 documented as of this encounter
--- OUTSIDE RECORDS SUMMARY | 2024-10-12 14:35 | XMS_ITS | Encounter Summary ---
Author Organization [facility] Address [address] [place] [address] Phone Care Team Providers Care Senior Living Advisor Name Role Phone Tristan Mills MD Primary Care Provider [phone] Laura Michaels MD Unavailable [phone] Cristofer Wilson MD Unavailable [phone] Esteban Carpenter MD Unavailable Mejia Ayon MD Unavailable Reason for Visit * Reason Comments Medication Refill Encounter Details Date Type Department Care Team (Late st Contact Info) Description 12/19/2023 Refill [facility] #2 [place] [address] Tristan Mills MD #[address] [address] Medication Refill Social History Tobacco Use Types Packs/Day Years Used Date Smoking Tobacco: Never Smokeless Tobacco: Never Alcohol Use Standard Drinks/Week Comments Yes 1 (1 standard drink = 0.6 oz pur e alcohol) Socially [facility] Utilities Answer Date Recorded In the past 12 months has [employer] electric, gas, oil, or water company threatened [...] often do you attend chur ch or yazidi services? More than 4 times per year 09/13/2023 Do you belong to any clubs o r organizations such as scientologist groups, unions, fraternal or athletic groups, or [...] Score - Questions 1-9 0 04/22 [facility]at ional Health [...] place to sleep or slept in a intermediate (including now)? No 09/13/2023 Education Answer Date [...] Telephone Encounter - Magda Bryson RN - 12/20/2023 9:50 AM CDT Medication failed the protocol, provider to review and approve the medication order if appropriate. Requested Prescriptions Pending Prescriptions Disp Refills cyclobenzaprine (FLEXERIL) 5 MG Tablet [Pharmacy Med Name: CYCLOBENZAPRINE 5 MG TABLET] 90 Tablet 0 Sig: TAKE 1 TABLET BY MOUTH THREE TIMES A DAY NEEDED FOR MUSCLE SPASM Not Delegated - Muscle Relaxants Protocol Failed - 12/19/2023 3:09 PM Failed - This refill cannot be delegated Passed - Visit with relevant provider in past 12 months or upcoming 90 days Recent Visits Date Type Provider Dept 09/19/23 Office Visit Tr[facility] MD [facility] 09/19/23 Procedure Visit [facility] 09/13/23 Office Visit Tristan Mills MD [facility] 05/06/23 Office Visit Vinicius Humphrey MD [facility] 05/02/23 Office Visit Brooks Vazquez, SKATING RINK MANAGER, PRINTER SLOTTER FEEDER [facility] Showing recent visits within past 365 days and meeting all other requirements Today's Visits Date Type Provider Dept 12/20/23 Appointment Tristan [facility] MD [facility] Showing today's visits and meeting all other requirements Future Appointments No visits were found meeting these conditions. Showing future appointments within next 90 days and meeting all other requirements documented in this encounter Plan of Treatment Not on file documented as of this encounter Visit Diagnoses Not on filedocumented in this encounter Additional Health Concerns Assessment Noted Time PHQ-9 Depression Total Score: 0 05/06/20 23 2:49 PM CDT documented as of this encounter Care Teams Senior Living Advisor Relationship Specialty Start Date End Date Tristan Mills MD #2 [facility] [address] [place] [address] PCP - General Family Medicine 09/01/17 Laura Mcihaels MD #2 [facility] [address] [place] [address] Consulting Physician Urology 09/25/18 Cristofer Wilson MD #2 [facility] [address] [place] [address] General Surgery 09/25/18 Esteban Carpenter MD #2 [facility] [address] [place] [address] Consulting Physician Colon and Rectal Surgery 10/06/23 Mejia Ayon MD #2 [facility] [address] [place] [address] Consulting Physician Urology 02/29/24 documented as of this encounter
--- OUTSIDE RECORDS SUMMARY | 2024-10-12 14:35 | XMS_ITS | Encounter Summary ---
Author Organization [facility] Address [address] [place] [address] [place] [address] Phone Care Team Providers Care Director Of Sustainable Design Name Role Phone Tristan Mills MD Primary Care Provider [phone] Laura Michaels MD Unavailable [phone] Cristofer Wlison MD Unavailable [phone] Esteban Carpenter MD Unavailable Mejia Ayon MD Unavailable Reason for Visit * Reason Comments Medication Refill Encounter Details Date Type Department Care Team (Late st Contact Info) Description [facility]/10[facility] [address] [place] [address] Tristan Mills MD #[address] [address] Medication Refill Social History Tobacco Use Types [...] COVID-19? No / Unsure 08/13/2021 11:11 AM WET PRESS TENDER documented as of this encounter Miscellaneous Notes * Telephone Encounter - Magda Bryson RN - 08/11/2021 9:58 AM CST Medication failed the protocol, provider to review and approve the medication order if appropriate. Requested Prescriptions Pending Prescriptions Disp Refills ibuprofen (MOTRIN) 800 MG Tablet [Pharmacy Med Name: IBUPROFEN 800 MG TABLET] 60 Tablet 0 Sig: TAKE 1 TABLET BY MOUTH EVERY 6 HOURS NEEDED NSAIDs Protocol Failed - 08/10/2021 2:47 PM Failed - Normal serum creatinine in past 12 months CREATININE - POCT Date Value Ref Range Status 07/07/2020 1.1 0.6 - 1.3 mg/dL Final Failed - No matching NSAID med order in past 45 days Matching medication order placed on 07/09/2021 7:43 PM Order [id number]: ibuprofen (MOTRIN) 800 MG Tablet (For orders placed between 06/27/2021 9:58 AM and 08/11/2021 9:58 AM) Failed - AST less than 55 or ALT less than 90 in past 12 months SGOT (AST) Date Value Ref Range Status 05/20/2020 16 <=32 U/L Final SGPT (ALT) Date Value Ref Range Status 05/20/2020 19 <=33 U/L Final Failed - HGB greater than 10 or HCT greater than 30 in past 12 months HEMOGLOBIN (HGB) Date Value Ref Range Status 05/20/2020 11.2 (L) 12.0 - 15.8 g/dL Final HEMATOCRIT (HCT) Date Value Ref Range Status 05/20/2020 35.7 (L) 36.0 - 47.0 % Final Passed - Visit with relevant provider in past 12 months or upcoming 90 days Recent Visits Date Type Provider Dept 07/24/21 Office Visit Brooks Vazquez APRN, COMPLIANCE SPEC [facility] 09/02/20 Office Visit MohyuddinTristan MD [facility] Showing recent visits within past 365 days and meeting all other requirements Future Appointments Date Type Provider Dept 10/22/21 Appointment Tristan Mills MD [facility] Showing future appointments within next 90 days and meeting all other requirements PRESS TENDER documented in this encounter Plan of Treatment Not on file documented as of this encounter Visit Diagnoses Not on filedocumented in this encounter Additional Health Concerns Infection Onset Date Last Indicated Resolved Time COVID - 19 08/13/2021 08/17/2021 09/06/2021 12:1 6 AM WET PRESS TENDER COVID - 19 Confirmed 08/17/2021 08/17/2021 022 12:16 AM WET PRESS TENDER COVID - 19 04/11/2022 04/11/2022 04/21/2022 12:1 6 AM CDT COVID - 19 07/28/2022 07/28/2022 08/07/2022 12:1 6 AM WET PRESS TENDER Influenza 07/28/2022 07/28/2022 08/04/2022 12:1 6 AM WET PRESS TENDER Respiratory Rule Out - RPA 06/23/2023 06/23/2023 1 08/23/2022 5:23 PM CDT COVID - 19 09/28/2023 09/28/2023 10/08/2023 12:1 6 AM WET PRESS TENDER Assessment Noted Time PHQ-9 Depression Total Score: 0 09/02/19 21 3:57 PM WET PRESS TENDER documented as of this encounter Care Teams Director Of Sustainable Design Relationship Specialty Start Date End Date Tristan Mills MD #[address] [address] PCP - General Family Medicine 09/01/17 Laura Michaels MD #[address] [address] Consulting Physician Urology 09/25/18 Cristofer Wilson MD #[address] [place] [address] General Surgery 09/25/18 Esteban Carpenter MD #2 [facility] [address] [place] [address] Consulting Physician Colon and Rectal Surgery 10/06/23 Mejia Ayon MD #2 [facility] [address] [place] [address] Consulting Physician Urology 02/29/24 documented as of this encounter
--- OUTSIDE RECORDS SUMMARY | 2024-10-12 14:35 | XMS_ITS | Encounter Summary ---
Author Organization [facility] Address [address] [place] [address] [address] Phone Care Team Providers Care Paraffiner Name Role Phone Tristan Mills MD Primary Care Provider [phone] Laura Michaels MD Unavailable [phone] Cristofer Wilson MD Unavailable [phone] Esteban Carpenter MD Unavailable Mejia Ayon MD Unavailable Reason for Visit * Reason Comments Medication Refill Encounter Details Date Type Department Care Team (Late st Contact Info) Description [facility] [address] [place] [address] Tristan Mills MD #[address] [address] Medication Refill Social History Tobacco Use Types [...] have Coronavirus / COVID-19? No / Unsure 09/06/2020 10:01 AM WOMEN'S BASKETBALL COACH documented as of this encounter Miscellaneous Notes * Telephone Encounter - Magda Bryson RN - 09/05/2020 9:49 AM CST Medication failed the protocol, provider to review and approve the medication order if appropriate. Requested Prescriptions Pending Prescriptions Disp Refills busPIRone (BUSPAR) 15 MG Tablet [Pharmacy Med Name: BUSPIRONE HCL 15 MG TABLET] 60 Tab 11 Sig: TAKE 1 TABLET BY MOUTH TWICE A DAY Not Delegated - Psychiatry: Anxiolytics/Hypnotics Failed - 09/05/2020 12:02 AM Failed - This refill cannot be delegated Passed - Valid encounter within last 6 months Past Office Visits Recent Outpatient Visits 3 days ago Diabetes mellitus type 2, noninsulin dependent (HCC) [facility] - Tristan Luciano MD 1 month ago Chronic right shoulder pain [facility] - Brooks Raphael APN, NILES 2 months ago Left inguinal hernia [facility] Tristan Luciano MD 3 months ago Essential hypertension [facility] Brooks Raphael APN, NILES 3 months ago Nephrolithiasis [facility] Brooks Raphael APN, NILES Upcoming Appointments Future App[facility]ments [facility] Mammography, [facility] In 2 months Tristan Mills MD [facility] 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 - Recent and Past Visits Recent Visits Date Type Provider Dept 09/02/20 Office Visit Tristan Mills MD [facility] 07/25/20 Office Visit Brooks Vazquez APN, NILES [facility] 06/25/20 Office Visit Tristan Mills MD [facility] [...] authorizing provider and meeting all other requirements N'S BASKETBALL COACH documented in this encounter Plan of Treatment Not on file documented as of this encounter Visit Diagnoses Not on filedocumented in this encounter Additional Health Concerns Infection Onset Date Last Indicated Resolved Time COVID - 19 03/06/2021 03/06/2021 03/07/2021 8:43 AM CDT COVID - 19 08/13/2021 08/17/2021 09/06/2021 12:1 6 AM WOMEN'S BASKETBALL COACH COVID - 19 Confirmed 08/17/2021 08/17/2021 022 12:16 AM WOMEN'S BASKETBALL COACH COVID - 19 04/11/2022 04/11/2022 04/21/2022 12:1 6 AM CDT COVID - 19 07/28/2022 07/28/2022 08/07/2022 12:1 6 AM WOMEN'S BASKETBALL COACH Influenza 07/28/2022 07/28/2022 08/04/2022 12:1 6 AM WOMEN'S BASKETBALL COACH Respiratory Rule Out - RPA 06/23/2023 06/23/2023 1 08/23/2022 5:23 PM CDT COVID - 19 09/28/2023 09/28/2023 10/08/2023 12:1 6 AM WOMEN'S BASKETBALL COACH Assessment Noted Time PHQ-9 Depression Total Score: 0 09/02/19 21 3:57 PM WOMEN'S BASKETBALL COACH documented as of this encounter Care Teams Paraffiner Relationship Specialty Start Date End Date Tristan Mills MD #2 [facility] [address] [place] [address] PCP - General Family Medicine 09/01/17 Laura Michaels MD #2 [facility] [address] [place] [address] Consulting Physician Urology 09/25/18 Cristofer Wilson MD #2 [facility] [address] [place] [address] General Surgery 09/25/18 Esteban Carpenter MD #2 [facility] [address] [place] [address] Consulting Physician Colon and Rectal Surgery 10/06/23 Mejia Ayon MD #2 [facility] [address] [place] [address] Consulting Physician Urology 02/29/24 documented as of this encounter
--- OUTSIDE RECORDS SUMMARY | 2024-10-12 14:35 | XMS_ITS | Encounter Summary ---
Author Organization [facility] Address [address] [place] [address] [address] Phone Care Team Providers Care Take Up Operator Name Role Phone Tristan Mills MD Primary Care Provider [phone] Laura Michaels MD Unavailable [phone] Cristofer Wilson MD Unavailable [phone] Esteban Carpenter MD Unavailable Mejia Ayon MD Unavailable Reason for Visit * Reason Comments Medication Refill Encounter Details Date Type Department Care Team (Late st Contact Info) Description 10/11/2021 Refill [facility] #2 [place] [phone] Tristan Mills MD #[address] [address] Medication Refill Social History Tobacco Use Types [...] have Coronavirus / COVID-19? No / Unsure 10/12/2021 11:31 AM SUPERVISOR PHOSPHORIC ACID documented as of this encounter Miscellaneous Notes * Telephone Encounter - Magda Bryson RN - 10/12/2021 11:06 AM CST Medication failed the protocol, provider to review and approve the medication order if appropriate. Requested Prescriptions Pending Prescriptions Disp Refills metFORMIN (GLUCOPHAGE) 1000 MG Tablet [Pharmacy Med Name: METFORMIN HCL 1,000 MG TABLET] 180 Tablet3 Sig: TAKE 1 TABLET BY MOUTH TWICE A DAY WITH MEALS Biguanides Protocol Failed - 10/11/2021 12:00 AM Failed - HgA1C on record in [...] Provider Dept 10/22/21 Appointment Tristan Mills MD [facility] [place] Showing future appointments within next 90 days and meeting all other requirements busPIRone (BUSPAR) 15 MG Tablet [Pharmacy Med Name: BUSPIRONE HCL 15 MG TABLET] 60 Tablet 11 Sig: TAKE 1 TABLET BY MOUTH TWICE A DAY Buspirone (6 Month Refill Only) Protocol Failed - 10/11/2021 12:00 AM Failed - Has an encounter in [...] Provider Dept 10/22/21 [facility] Showing future appointments within next 90 days and meeting all other requirements Passed - Patient has established therapy with Buspirone for at least 6 months [employer]OR PHOSPHORIC AC[employer] documented in this encounter Plan of Treatment Not on file documented as of this encounter Visit Diagnoses Not on filedocumented in this encounter Additional Health Concerns Infection Onset Date Last Indicated Resolved Time COVID - 19 04/11/2022 04/11/2022 04/21/2022 12:1 6 AM CDT COVID - 19 07/28/2022 07/28/2022 08/07/2022 12:1 6 AM SUPERVISOR PHOSPHORIC ACID Influenza 07/28/2022 07/28/2022 08/04/2022 12:1 6 AM SUPERVISOR PHOSPHORIC ACID Respiratory Rule Out - RPA 06/23/2023 06/23/2023 1 08/23/2022 5:23 PM CDT COVID - 19 09/28/2023 09/28/2023 10/08/2023 12:1 6 AM SUPERVISOR PHOSPHORIC ACID Assessment Noted Time PHQ-9 Depression Total Score: 0 09/02/19 21 3:57 PM SUPERVISOR PHOSPHORIC ACID documented as of this encounter Care Teams Take Up Operator Relationship Specialty Start Date End Date Tristan Mills MD #[address] [address] PCP - General Family Medicine 09/01/17 Laura Michaels MD #[address] [address] Consulting Physician Urology 09/25/18 Cristofer Wilson MD #[address] [address] General Surgery 09/25/18 Esteban Carpenter MD #2 [facility] [address] [place] [address] Consulting Physician Colon and Rectal Surgery 10/06/23 Mejia Ayon MD [facility]2 [facility] [address] [place] [address] Consulting Physician Urology 02/29/24 documented as of this encounter
--- OUTSIDE RECORDS SUMMARY | 2024-10-12 14:35 | XMS_ITS | Encounter Summary ---
Author Organization [facility] Address [address] [place] [address] [address] Phone Care Team Providers Care Opener Verifier Packer Customs Name Role Phone Tristan Mills MD Primary Care Provider [phone] Laura Michaels MD Unavailable Cristofer Wilson MD Unavailable [phone] Esteban Carpenter MD Unavailable Mejia Ayon MD Unavailable Reason for Visit * Reason Comments Medication Refill Buspirone Encounter Details Date Type Department Care Team (Late st Contact Info) Description 04/29/[facility] [address] [place] [address] Tristan Mills MD #[address] [address] Medication Refill (Buspirone) Social History Tobacco Use Types Packs/Day Years [...] encounter Miscellaneous Notes * Telephone Encounter - Micah Parker RN - 04/29/2020 1:39 PM CDT Requested Prescriptions Pending Prescriptions Disp Refills ??? busPIRone (BUSPAR) 15 MG Tablet [Pharmacy Med Name: BUSPIRONE HCL 15 MG TABLET] 60 Tab 0 Sig: TAKE 1 TABLET BY MOUTH TWICE A DAY Above medication pended for your approval. Last refill: 04/08/20 #60/0 Last office visit: 02/29/20 Next visit: 06/02/[address] Brooks Vazquez documented in this encounter Plan of Treatment Not on file documented as of this encounter Visit Diagnoses Not on filedocumented in this encounter Additional Health Concerns Infection Onset Date Last Indicated Resolved Time COVID - 19 03/06/2021 03/06/2021 03/07/2021 8:43 AM CDT COVID - 19 08/13/2021 08/17/2021 09/06/2021 12:1 6 AM DRY PRESS OPERATOR COVID - 19 Confirmed 08/17/2021 08/17/2021 022 12:16 AM DRY PRESS OPERATOR COVID - 19 04/11/2022 04/11/2022 04/21/2022 12:1 6 AM CDT COVID - 19 07/28/2022 07/28/2022 08/07/2022 12:1 6 AM DRY PRESS OPERATOR Influenza 07/28/2022 07/28/2022 08/04/2022 12:1 6 AM DRY PRESS OPERATOR Respiratory Rule Out - RPA 06/23/2023 06/23/2023 1 08/23/2022 5:23 PM CDT COVID - 19 09/28/2023 09/28/2023 10/08/2023 12:1 6 AM DRY PRESS OPERATOR Assessment Noted Time PHQ-9 Depression Total Score: 0 10/30/19 20 3:24 PM CDT documented as of this encounter Care Teams Opener Verifier Packer Customs Relationship Specialty Start Date End Date Tristan Mills MD #2 [facility] [address] [place] [address] PCP - General Family Medicine 09/01/17 Laura Michaels MD #2 [facility] [address] [place] [address] Consulting Physician Urology 09/25/18 Cristofer Wilson MD #2 [facility] [address] [place] [address] General Surgery 09/25/18 Esteban Carpenter MD #2 [facility] [address] [place] [address] Consulting Physician Colon and Rectal Surgery 10/06/23 Mejia Ayon MD #2 [facility] [address] [place] [address] Consulting Physician Urology 02/29/24 documented as of this encounter
--- OUTSIDE RECORDS SUMMARY | 2024-10-12 14:35 | XMS_ITS | Referral Summary ---
Author Organization [facility] [place] [address] [place] [address] Address [address] [place] [address] Care Team Providers Care Junior Qa Analyst Name Role Phone Tristan Mills MD Primary Care Provider [phone] Allergies Active Allergy Reactions Criticality Noted Date Comments Atenolol Hives,Rash,Itching High 05/10/2019 Reaction: Hives, Skin Rash, Chocolate Hives Medium 03/06/2021 Chocolate Flavor Hives,Urticaria Medium 01/17/2020 Reaction: Hives, Reaction: Hives, Latex Hives,Itching,Urticaria High 09/22/2018 Venom-Honey Bee Anaphylaxis High 10/07/2017 Medications methylPREDNISol one (MEDROL DOSEPACK) 4 mg Dosepack follow package directions 21 tablet 9 Active Additional Information Patient not taking.Reported on 04/30/2022 triamcinolone (KENALOG) 0.1 % cream Apply topically 2 (two) times a day 80 g 9 Active Additional Information Patient not taking.Reported on 04/30/2022 busPIRone (BUSPAR) 15 mg tablet buspirone 15 mg tablet TAKE 1 TABLET BY MOUTH TWICE A DAY 9 Active glimepiride (AMARYL) 1 mg tabletIndicatio ns:type 2 diabetes mellitus Take 1 mg by mouth daily before breakfast Active metFORMIN (GLUCOPHAGE) 1,000 mg tablet Take 1,000 mg by mouth 2 (two) times a day with meals Active Active Problems Problem Noted Date Diagnosed Date Pruritic dermatitis 08/04/2019 Obstructive sleep apnea syndrome 01/05/2014 Overview (11/26/2016): OBSTRUCTIVE SLEEP APNEA Anxiety state 01/17/2009 Overview (11/24/2016): ANXIETY STATE NOS Type 2 diabetes mellitus 09/25/2008 Overview (11/26/2016): DMII WO CMP UNCNTRLD Depression 09/25/2008 Overview (11/26/2016): DEPRESSIVE DISORDER NEC Hypertension 09/25/2008 Overview (11/26/2016): HYPERTENSION NOS Immunizations Immunization Administration Dates Next Due Influenza, Trivalent, IM (MDV) 09/25/2008 Pneumococcal Polysaccharide PPV23 09/25/2008 Td, adsorbed 09/25/2008 Social History Tobacco Use Types Packs/Day Years Used Date Smoking Tobacco: Never Assessed Alcohol Use Standard Drinks/Week Comments Yes 0 (1 standard drink = 0.6 oz pur e alcohol) Comments Unknown Sex and Gender Information Value Date Recorded Sex Assigned at Not on file Legal Sex Female 11:49 AM REHABILITATOR Gender Identity Not on file Sexual Orientation Not on file Last Filed Vital Signs Vital Sign Reading Time Taken Comments Blood Pressure 134/84 04/30/2022 3:41 PM CDT Pulse 85 04/30/2022 3:41 PM CDT Temperature 36.4 C (97.5 F) 08/04/2019 1:19 PM REHABILITATOR Respiratory Rate 20 08/04/2019 1:19 PM REHABILITATOR Oxygen Saturation 100% 08/04/2019 1:19 PM REHABILITATOR Inhaled Oxygen Concentration - - Weight 69.9 kg (154 lb) 04/30/2022 3:41 PM CDT Height 149.9 cm (4' 11 ) 04/30/2022 3:41 PM CDT Body Mass Index 31.1 04/30/2022 3:41 PM CDT Plan of Treatment Not on file Insurance [facility] [place] [address] [address] [place] [address] Care Teams Junior Qa Analyst Relationship Specialty Start Date End Date Tristan Mills MD #[address] [address] PCP - General 08/04/19
--- OUTSIDE RECORDS SUMMARY | 2024-10-12 14:35 | XMS_ITS | Clinical Summary ---
Author Organization [facility] [place] [address] [place] [address] Address [address] [place] [address] Care Team Providers Care Service Center Coordinator Name Role Phone Tristan Mills MD Primary Care Provider [phone] Allergies Active Allergy Reactions Criticality Noted Date [...] Pneumococcal Polysaccharide PPV23 09/25/2008 Td, adsorbed 09/25/2008 Surgical History Surgery Date Site/Laterality Comments OTHER SURGICAL HISTORY 2008 MITRAL VALVE PROLAPSE: OTHER SURGICAL HISTORY : HYSTERECTOMY HERNIA REPAIR CHOLECYSTECTOMY Medical History Medical History Date Comments Hx Other Medical MITRAL VALVE IN OLAPSE; Comments: Jameel Nicole DO; Outcome: Resolved from Problem List Gestational diabetes mellitus (GDM) Diabetes gestational Hypertension Hypertension Hx Other Medical Pre-eclampsia Depression Depression Hx Other Medical 06/1999 Kidney stone Rheumatoid arthritis (HCC) Family History Medical History Relation Name Comments Arthritis Other Heart disease Other Hypertension Other Stroke Other Relation Name Status Comments Other Social History Tobacco Use Types Packs/Day Years Used Date Smoking Tobacco: Never Assessed Alcohol Use Standard Drinks/Week Comments Yes 0 (1 standard drink = 0.6 oz pur e alcohol) Comments Unknown Sex and Gender Information Value Date Recorded Sex Assigned at Not on file Legal Sex Female 11:49 AM CORE MAN Gender Identity Not on file Sexual Orientation Not on file Obstetrics History Last Filed Vital Signs Vital Sign Reading Time Taken Comments Blood Pressure 134/84 04/30/2022 3:41 PM CDT Pulse 85 04/30/2022 3:41 PM CDT Temperature 36.4 C (97.5 F) 08/04/2019 1:19 PM CORE MAN Respiratory Rate 20 08/04/2019 1:19 PM CORE MAN Oxygen Saturation 100% 08/04/2019 1:19 PM CORE MAN Inhaled Oxygen Concentration - - Weight 69.9 kg (154 lb) 04/30/2022 3:41 PM CDT Height 149.9 cm (4' 11 ) 04/30/2022 3:41 PM CDT Body Mass Index 31.1 04/30/2022 3:41 PM CDT Plan of Treatment Health Maintenance Due Date Last Done Comments Albumin Creatinine Ratio, Urine 1967 Breast Cancer Screening-Mammogram 1967 Colon Cancer Screening-Colonoscopy 1967 Depression Screening 1967 Hemoglobin A1C 1967 Hepatitis C Screening 1967 eGFR 1967 Dilated Eye Exam 1967 Foot Exam 1967 Lipid Panel 1967 Hepatitis B Screening 1985 Regular Well Visit/Exam 18-64 1985 DTaP/Tdap/Td Vaccine (1 - Tdap) 09/26/2008 Zoster Vaccine (1 of 2) 2017 Covid-19 Vaccine (3 - 2023-2 5 season) 2024 04/19/2021, 03/29/2021 Influenza Vaccine (#1) 2024 , 07/24/2021, 05/21/2020, Additional history exists Pneumococcal vaccine <65 (3 of 3 - PCV20 or PCV21) 07/24/2026 07/24/2021, 09/25/2008 Insurance [facility] Member Subscriber Plan / Payer (Ef fective 2019-Present) Name:Magda Grajeda Relation to Subscriber:Self Name:Magda Grajeda Payer ID:[id number] (NAIC) Type:MEDICAID RISK OTHER Address: [address] Care Teams Service Center Coordinator Relationship Specialty Start Date End Date Tristan Mills MD #[address] [address] PCP - General 08/04/19
--- OUTSIDE RECORDS SUMMARY | 2024-10-12 14:35 | XMS_ITS | Encounter Summary ---
Author Organization [facility] Address [address] [place] [address] Phone Care Team Providers Care Manager Of Application Development Name Role Phone Tristan Mills MD Primary Care Provider [phone] Laura Michaels MD Unavailable [phone] Cristofer Wilson MD Unavailable [phone] Esteban Carpenter MD Unavailable Mejia Ayon MD Unavailable Reason for Visit * Reason Comments Medication Refill Encounter Details Date Type Department Care Team (Late st Contact Info) Description [facility] [address] [place] [address] Tristan Mills MD #[address] [address] Medication Refill Social History Tobacco Use Types [...] encounter Miscellaneous Notes * Telephone Encounter - Tristan Mills MD - 07/09/2021 7:44 PM FARMWORKERS Magda, please make sure she gets scheduled for an appointment soon. Thanks! WORKERS * Telephone Encounter - Elly Motta RMA - 07/09/2021 10:19 AM FARMWORKERS [facility] message sent. WORKERS * Telephone Encounter - Magda Bryson RN - 07/09/2021 9:34 AM CST Patient needs an appointment with PCP/AMBULANCE DISPATCHER WORKERS * Telephone Encounter - Magda Bryson RN - 07/09/2021 9:34 AM CST Medication failed the protocol, provider to review and approve the medication order if appropriate. Requested Prescriptions Pending Prescriptions Disp Refills ibuprofen (MOTRIN) 800 MG Tablet [Pharmacy Med Name: IBUPROFEN 800 MG TABLET] 360 Tablet 0 Sig: TAKE 1 TABLET BY MOUTH EVERY 6 HOURS NEEDED NSAIDs Protocol Failed - 07/09/2021 12:03 AM Failed - Normal serum creatinine in past 12 months CREATININE - POCT Date Value Ref Range Status 07/07/2020 1.1 0.6 - 1.3 mg/dL Final Failed - AST less than 55 or [...] days Recent Visits Date Type Provider Dept 09/02/20 Office Visit Tristan Mills MD [facility] 07/25/20 Office Visit Brooks Vazquez APRN, NIL[facility] Showing recent visits within past 365 days and meeting all other requirements Future Appointments No visits were found meeting these conditions. Showing future appointments within next 90 days and meeting all other requirements Passed - No matching NSAID med order in past 45 days No matching medication orders between 05/25/2021 9:34 AM and 07/09/2021 9:34 AM WORKERS documented in this encounter Plan of Treatment Not on file documented as of this encounter Visit Diagnoses Not on filedocumented in this encounter Additional Health Concerns Infection Onset Date Last Indicated Resolved Time COVID - 19 08/13/2021 08/17/2021 09/06/2021 12:1 6 AM FARMWORKERS COVID - 19 Confirmed 08/17/2021 08/17/2021 022 12:16 AM FARMWORKERS COVID - 19 04/11/2022 04/11/2022 04/21/2022 12:1 6 AM CDT COVID - 19 07/28/2022 07/28/2022 08/07/2022 12:1 6 AM FARMWORKERS Influenza 07/28/2022 07/28/2022 08/04/2022 12:1 6 AM FARMWORKERS Respiratory Rule Out - RPA 06/23/2023 06/23/2023 1 08/23/2022 5:23 PM CDT COVID - 19 09/28/2023 09/28/2023 10/08/2023 12:1 6 AM FARMWORKERS Assessment Noted Time PHQ-9 Depression Total Score: 0 09/02/19 21 3:57 PM FARMWORKERS documented as of this encounter Care Teams Manager Of Application Development Relationship Specialty Start Date End Date Tristan Mills MD #[address] [address] PCP - General Family Medicine 09/01/17 Laura Michaels MD #[address] [address] Consulting Physician Urology 09/25/18 Cristofer Wilson MD #[address] [address] General Surgery 09/25/18 Esteban Carpenter MD #[address] [address] Consulting Physician Colon and Rectal Surgery 10/06/23 Mejia Ayon MD #[address] [address] Consulting Physician Urology 02/29/24 documented as of this encounter
--- OUTSIDE RECORDS SUMMARY | 2024-10-12 14:35 | XMS_ITS | Encounter Summary ---
Author Organization [facility] Address [address] [place] [address] Phone Care Team Providers Care Tax Attorney Name Role Phone Tristan Mills MD Primary Care Provider [phone] Laura Michaels MD Unavailable Cristofer Wilson MD Unavailable Esteban Carpenter MD Unavailable Mejia Ayon MD Unavailable Reason for Visit * Reason Comments Medication Refill Encounter Details Date Type Department Care Team (Late st Contact Info) Description 01/15/2021 [facility] [address] [place] [address] Tristan Mills MD #[address] [address] Medication Refill Social History Tobacco Use Types [...] have Coronavirus / COVID-19? No / Unsure 12/29/2020 9:58 AM CDT documented as of this encounter Miscellaneous Notes * Telephone Encounter - Magda Bryson RN - 01/15/2021 2:26 PM CDT PRN medication requires review from provider Per nursing clinical judgement, provider to review and approve the medication(s) order(s) if appropriate. Requested Prescriptions Pending Prescriptions Disp Refills ibuprofen (MOTRIN) 800 MG Tablet [Pharmacy Med Name: IBUPROFEN 800 MG TABLET] 360 Tablet 1 Sig: TAKE 1 TABLET BY MOUTH EVERY 6 HOURS NEEDED [facility] Analgesics: NSAIDS - OTC Passed - 01/15/2021 12:02 AM Passed - Valid encounter within last 12 months Past Office Visits Recent Outpatient Visits 4 months ago Diabetes mellitus type 2, noninsulin dependent (HCC) [facility] Family [facility] - Tristan Luciano MD 5 months ago Chronic right shoulder pain [facility] - Brooks Raphael APN, CNP 6 months ago Left inguinal hernia [facility] Tristan Luciano MD 7 months ago Essential hypertension [facility] - Brooks Raphael APN, NILES 7 months ago Nephrolithiasis [facility] Brooks Raphael APN, NILES Upcoming Appointments Future Appointments In 1 week Tristan Mills MD [facility] [place] [facility] GLASSWARE DEFECT REPAIRER - Recent and Past Visits Recent Visits Date Type Provider Dept 09/02/20 Office Visit Tristan Mills MD [facility] 07/25/20 Office Visit Brooks Vazquez APN, CNP [facility] 06/25/20 Office Visit Tristan Mills MD [facility] 06/02/20 Office Visit Brooks Vazquez APN, NILES [facility] 05/21/20 Office Visit Brooks Vazquez APN, NIL[facility] [place] 02/29/20 Office Visit Tristan Mills MD [facility] 10/30/19 Office Visit Tristan Mills MD [facility] Showing recent visits within past 460 days with a meds authorizing provider and meeting all other requirements Future Appointments Date Type Provider Dept 01/26/21 Appointment Tristan Mills MD [facility] Showing [...] 19 08/13/2021 08/17/2021 09/06/2021 12:1 6 AM SLEEPING CAR PORTER COVID - 19 Confirmed 08/17/2021 08/17/2021 022 12:16 AM SLEEPING CAR PORTER COVID - 19 04/11/2022 04/11/2022 04/21/2022 12:1 6 AM CDT COVID - 19 07/28/2022 07/28/2022 08/07/2022 12:1 6 AM SLEEPING CAR PORTER Influenza 07/28/2022 07/28/2022 08/04/2022 12:1 6 AM SLEEPING CAR PORTER Respiratory Rule Out - RPA 06/23/2023 06/23/2023 1 08/23/2022 5:23 PM CDT COVID - 19 09/28/2023 09/28/2023 10/08/2023 12:1 6 AM SLEEPING CAR PORTER Assessment Noted Time PHQ-9 Depression Total Score: 0 09/02/19 21 3:57 PM SLEEPING CAR PORTER documented as of this encounter Care Teams Tax Attorney Relationship Specialty Start Date End Date Tristan Mills MD #[address] [address] PCP - General Family Medicine 09/01/17 Laura Michaels MD #[address] [address] Consulting Physician Urology 09/25/18 Cristofer Wilson MD #[address] [address] General Surgery 09/25/18 Esteban Carpenter MD #[address] [address] Consulting Physician Colon and Rectal Surgery 10/06/23 Mejia Ayon MD #[address] [address] Consulting Physician Urology 02/29/24 documented as of this encounter
--- OUTSIDE RECORDS SUMMARY | 2024-10-12 14:35 | XMS_ITS | Encounter Summary ---
Author Organization [facility] Address [address] [place] [address] [place] [address] Phone Care Team Providers Care Ssas Developer Name Role Phone Tristan Mills MD Primary Care Provider [phone] Laura Michaels MD Unavailable [phone] Cristofer Wilson MD Unavailable [phone] Esteban Carpenter MD Unavailable Mejia Ayon MD Unavailable Reason for Visit * Reason Comments Medication Refill Encounter Details Date Type Department Care Team (Late st Contact Info) Description [facility]06[facility] [address] [place] [address] Tristan Mills MD #[address] [address] Medication Refill Social History Tobacco Use Types [...] Telephone Encounter - Magda Bryson RN - 02/06/2021 9:35 AM CDT Medication failed the protocol, provider to review and approve the medication order if appropriate. Requested Prescriptions Pending Prescriptions Disp Refills glimepiride (AMARYL) 1 MG Tablet [Pharmacy Med Name: GLIMEPIRIDE 1 MG TABLET] 90 Tablet 1 Sig: TAKE 1 TABLET BY MOUTH EVERY DAY IN THE MORNING Sulfonylureas Protocol Failed - 02/06/2021 12:02 AM Failed - GFR on record in past 6 months GFR, EST. Date Value Ref Range Status 05/20/2020 >60 >=60 Final Comment: Creatinine Clearance is the preferred criteria for selecting drug dose adjustments in renally impaired patients. The GFR is provided as additional pertinent clinical information. GFR is reported in mL/min/1.73 sq m. GFR, EST. NONAFRICAN Date Value Ref Range Status 05/20/2020 55 (L) >=60 Final Passed - Visit with relevant provider in past 6 months or upcoming 90 days Recent Visits Date Type Provider Dept 09/02/20 Office Visit Tristan Mills MD [facility] [place] Showing recent visits within past 182 days and meeting all other requirements Future Appointments No visits were found meeting these conditions. Showing future appointments within next 90 days and meeting all other requirements Passed - HgA1C on record in past 6 months HGB-A1C Date Value Ref Range Status 08/30/2020 6.7 (H) 4.0 - 6.0 % Final documented in this encounter Plan of Treatment Not on file documented as of this encounter Visit Diagnoses Not on filedocumented in this encounter Additional Health Concerns Infection Onset Date Last Indicated Resolved Time COVID - 19 03/06/2021 03/06/2021 03/07/2021 8:43 AM CDT COVID - 19 08/13/2021 08/17/2021 09/06/2021 12:1 6 AM SHIPPING COORDINATOR COVID - 19 Confirmed 08/17/2021 08/17/2021 022 12:16 AM SHIPPING COORDINATOR COVID - 19 04/11/2022 04/11/2022 04/21/2022 12:1 6 AM CDT COVID - 19 07/28/2022 07/28/2022 08/07/2022 12:1 6 AM SHIPPING COORDINATOR Influenza 07/28/2022 07/28/2022 08/04/2022 12:1 6 AM SHIPPING COORDINATOR Respiratory Rule Out - RPA 06/23/2023 06/23/2023 1 08/23/2022 5:23 PM CDT COVID - 19 09/28/2023 09/28/2023 10/08/2023 12:1 6 AM SHIPPING COORDINATOR Assessment Noted Time PHQ-9 Depression Total Score: 0 09/02/19 3:57 PM SHIPPING COORDINATOR documented as of this encounter Care Teams Ssas Developer Relationship Specialty Start Date End Date Tristan Mills MD #2 [facility] [address] [place] [address] PCP - General Family Medicine 09/01/17 Laura Michaels MD #2 [facility] [address] [place] [address] Consulting Physician Urology 09/25/18 Cristofer Wilson MD #2 [facility] [address] [place] [address] General Surgery 09/25/18 Esteban Carpenter MD #2 [facility] [address] [place] [address] Consulting Physician Colon and Rectal Surgery 10/06/23 Mejia Ayon MD #2 [facility] [address] [place] [phone] Consulting Physician Urology 02/29/24 documented as of this encounter
--- OUTSIDE RECORDS SUMMARY | 2024-10-12 14:35 | XMS_ITS | Encounter Summary ---
Author Organization [facility] Address [address] [place] [address] [address] Phone Care Team Providers Care Cad Librarian Name Role Phone Tristan Mills MD Primary Care Provider [phone] Laura Michaels MD Unavailable [phone] Cristofer Wilson MD Unavailable [phone] Esteban Carpenter MD Unavailable Mejia Ayon MD Unavailable Reason for Visit * Reason Comments Medication Refill Encounter Details Date Type Department Care Team (Late st Contact Info) Description 06/27/2023 Refill [facility] - [facility] Medicine - [place] [address] [place] [phone] Brooks Vazquez, REAL PROPERTY APPRAISER, BEEF GRINDER [address] [address] Medication Refill Social History Tobacco Use Types Packs/Day Years Used Date Smoking Tobacco: Never Smokeless Tobacco: Never Alcohol Use Standard Drinks/Week Comments Yes 1 (1 standard drink = 0.6 oz pur e alcohol) Socially PHQ-2 Answer Date Recorded Total Score - Questions 1-9 0 04/22 Education Answer Date Recorded What is the [...] Exposure Response Date Recorded In the last 10 days, have yo u been in contact with someone who was confirmed or suspected to have Coronavirus/COVID-19? No / Unsure 06/23/2023 4:09 PM CDT documented as of this encounter Miscellaneous Notes * Telephone Encounter - Magda Bryson RN - 06/27/2023 1:42 PM CST Medication reordered through a different [facility]. This location is closing. ING WORKER documented in this encounter Plan of Treatment Not on file documented as of this encounter Visit Diagnoses Diagnosis Chronic maxillary sinusitis documented in this encounter Additional Health Concerns Infection Onset Date Last Indicated Resolved Time COVID - 19 09/28/2023 09/28/2023 10/08/2023 12:1 6 AM HEATING WORKER Assessment Noted Time PHQ-9 Depression Total Score: 0 05/06/20 23 2:49 PM CDT documented as of this encounter Care Teams Cad Librarian Relationship Specialty Start Date End Date Tristan Mills MD #[address] [address] PCP - General Family Medicine 09/01/17 Laura Michaels MD #[address] [address] Consulting Physician Urology 09/25/18 Cristofer Wilson MD #[address] [address] General Surgery 09/25/18 Esteban Carepnter MD #2 [facility] [address] [place] [address] Consulting Physician Colon and Rectal Surgery 10/06/23 Mejia Ayon MD #2 [facility] [address] [place] [address] Consulting Physician Urology 02/29/24 documented as of this encounter
--- OUTSIDE RECORDS SUMMARY | 2024-10-12 14:35 | XMS_ITS | Encounter Summary ---
Author Organization [facility] Address [address] [place] [address] Phone Care Team Providers Care Lacquerer Name Role Phone Tristan Mills MD Primary Care Provider [phone] Laura Michaels MD Unavailable [phone] Cristofer Wilson MD Unavailable Esteban Carpenter MD Unavailable Mejia Ayon MD Unavailable Reason for Visit * Reason Comments Medication Refill Encounter Details Date Type Department Care Team (Late st Contact Info) Description 08/31/2021 Refill [facility] [address] [place] [address] Tristan Mills MD #[address] [address] Medication Refill Social History Tobacco Use Types [...] COVID-19? No / Unsure 08/13/2021 11:11 AM DIRECTOR REVENUE documented as of this encounter Miscellaneous Notes * Telephone Encounter - Magda Bryson RN - 09/01/2021 11:09 AM CST Patient saw you last month Medication failed the protocol, provider to review and approve the medication order if appropriate. Requested Prescriptions Pending Prescriptions Disp Refills ibuprofen (MOTRIN) 800 MG Tablet [Pharmacy Med Name: IBUPROFEN 800 MG TABLET] 60 Tablet 0 Sig: TAKE 1 TABLET BY MOUTH EVERY 6 HOURS NEEDED NSAIDs Protocol Failed - 08/31/2021 2:32 PM Failed - Normal serum creatinine in past 12 months CREATININE - POCT Date Value Ref Range Status 07/07/2020 1.1 0.6 - 1.3 mg/dL Final Failed - No matching NSAID med order in past 45 days Matching medication order placed on 08/11/2021 10:33 AM Order [id number]: ibuprofen (MOTRIN) 800 MG Tablet (For orders placed between 07/18/2021 11:09 AM and 09/01/2021 11:09 AM) Failed - AST less than 55 [...] Type Provider Dept 07/24/21 Office Visit Brooks Vazquez, SURGICAL SUPPLY ASSISTANT, MANAGER OF FINANCIAL [facility] 09/02/20 Office Visit Tristan Mills MD [facility] Showing recent visits within past 365 days and meeting all other requirements Future Appointments Date Type Provider Dept 10/22/21 Appointment Tristan Mills MD [facility] Showing future appointments within next 90 days and meeting all other requirements CTOR REVENUE documented in this encounter Plan of Treatment Not on file documented as of this encounter Visit Diagnoses Not on filedocumented in this encounter Additional Health Concerns Infection Onset Date Last Indicated Resolved Time COVID - 19 08/13/2021 08/17/2021 09/06/2021 12:1 6 AM DIRECTOR REVENUE COVID - 19 Confirmed 08/17/2021 08/17/2021 022 12:16 AM DIRECTOR REVENUE COVID - 19 04/11/2022 04/11/2022 04/21/2022 12:1 6 AM CDT COVID - 19 07/28/2022 07/28/2022 08/07/2022 12:1 6 AM DIRECTOR REVENUE Influenza 07/28/2022 07/28/2022 08/04/2022 12:1 6 AM DIRECTOR REVENUE Respiratory Rule Out - RPA 06/23/2023 06/23/2023 1 08/23/2022 5:23 PM CDT COVID - 19 09/28/2023 09/28/2023 10/08/2023 12:1 6 AM DIRECTOR REVENUE Assessment Noted Time PHQ-9 Depression Total Score: 0 09/02/19 21 3:57 PM DIRECTOR REVENUE documented as of this encounter Care Teams Lacquerer Relationship Specialty Start Date End Date Tristan Mills MD #[address] [address] PCP - General Family Medicine 09/01/17 Laura Michaels MD #[address] [address] Consulting Physician Urology 09/25/18 Cristofer Wilson MD #2 [facility] [address] [place] [address] General Surgery 09/25/18 Esteban Carpenter MD #2 [facility] [address] [place] [address] Consulting Physician Colon and Rectal Surgery 10/06/23 Mejia Ayon MD [facility]2 [facility] [address] [place] [address] Consulting Physician Urology 02/29/24 documented as of this encounter
--- OUTSIDE RECORDS SUMMARY | 2024-10-12 14:35 | XMS_ITS | Encounter Summary ---
Author Organization [facility] Address [address] [place] [address] [address] Phone Care Team Providers Care Composition Teacher Name Role Phone Tristan Mills MD Primary Care Provider [phone] Laura Michaels MD Unavailable [phone] Cristofer Wilson MD Unavailable [phone] Esteban Carpenter MD Unavailable Mejia Ayon MD Unavailable Reason for Visit * Reason Comments Medication Refill Encounter Details Date Type Department Care Team (Late st Contact Info) Description 09/07/2020 Refill [facility] - Family Medicine - [place] [address]2 [place] [address] Brooks Vazquez, CLINICAL DOCUMENTATION SPECIALIST, RAIMANN MACHINE OPERATOR #[address] [address] Medication Refill Social History Tobacco Use Types [...] COVID-19? No / Unsure 09/06/2020 10:01 AM INCOME TAX CONSULTANT documented as of this encounter Miscellaneous Notes * Telephone Encounter - Magda Bryson RN - 09/08/2020 10:13 AM CST Medication failed the protocol, provider to review and approve the medication order if appropriate. Requested Prescriptions Pending Prescriptions Disp Refills cyclobenzaprine (FLEXERIL) 5 MG Tablet [Pharmacy Med Name: CYCLOBENZAPRINE 5 MG TABLET] 45 Tab 0 Sig: TAKE 1 TAB BY MOUTH 3 TIMES DAILY NEEDED FOR MUSCLE SPASMS. Not Delegated - Analgesics: Muscle Relaxants Failed - 09/07/2020 11:58 AM Failed - This refill cannot be delegated Passed - Valid encounter within last 6 months Past Office Visits Recent Outpatient Visits 6 days ago Diabetes mellitus type 2, noninsulin dependent (HCC) [facility] - Tristan Luciano MD 1 month ago Chronic right shoulder pain [facility] - Brooks Raphael APN, NILES 2 months ago Left inguinal hernia [facility] Tristan Luciano MD 3 months ago Essential hypertension [facility] Brooks Alonso APN, NILES 3 months ago Nephrolithiasis [facility] Brooks Raphael APN, NILES Upcoming Appointments Future Appointments In 2 months Tristan Mills MD [facility] MACHINE PECAN PICKER - Recent and Past Visits Recent Visits Date Type Provider Dept 09/02/20 Office Visit Tristan Mills MD [facility] 07/25/20 Office Visit Brooks Vazquez APN, CNP [facility] 06/25/20 Office Visit Tristan Mills MD [facility] 06/02/20 Office Visit Brooks Vazquez APN, RAIMANN MACHINE OPERATOR [facility] 05/21/20 Office Visit Brooks Vazquez APN, RAIMANN MACHINE OPERATOR [facility] 02/29/20 Office Visit Tristan Mills MD [...] authorizing provider and meeting all other requirements ME TAX CONSULTANT documented in this encounter Plan of Treatment Not on file documented as of this encounter Visit Diagnoses Not on filedocumented in this encounter Additional Health Concerns Infection Onset Date Last Indicated Resolved Time COVID - 19 03/06/2021 03/06/2021 03/07/2021 8:43 AM CDT COVID - 19 08/13/2021 08/17/2021 09/06/2021 12:1 6 AM INCOME TAX CONSULTANT COVID - 19 Confirmed 08/17/2021 08/17/2021 022 12:16 AM INCOME TAX CONSULTANT COVID - 19 04/11/2022 04/11/2022 04/21/2022 12:1 6 AM CDT COVID - 19 07/28/2022 07/28/2022 08/07/2022 12:1 6 AM INCOME TAX CONSULTANT Influenza 07/28/2022 07/28/2022 08/04/2022 12:1 6 AM INCOME TAX CONSULTANT Respiratory Rule Out - RPA 06/23/2023 06/23/2023 1 08/23/2022 5:23 PM CDT COVID - 19 09/28/2023 09/28/2023 10/08/2023 12:1 6 AM INCOME TAX CONSULTANT Assessment Noted Time PHQ-9 Depression Total Score: 0 09/02/19 21 3:57 PM INCOME TAX CONSULTANT documented as of this encounter Care Teams Composition Teacher Relationship Specialty Start Date End Date Tristan Mills MD #2 [facility] [address] [place] [address] PCP - General Family Medicine 09/01/17 Laura Michaels MD #2 [facility] [address] [place] [address] Consulting Physician Urology 09/25/18 Cristofer Wilson MD #2 [facility] [address] [place] [address] General Surgery 09/25/18 Esteban Carpenter MD #2 [facility] [address] [place] [address] Consulting Physician Colon and Rectal Surgery 10/06/23 Mejia Ayon MD #2 [facility] [address] [place] [phone] Consulting Physician Urology 02/29/24 documented as of this encounter
--- OUTSIDE RECORDS SUMMARY | 2024-10-12 14:35 | XMS_ITS | Encounter Summary ---
Author Organization [facility] Address [address] [place] [address] [place] [address] Phone Care Team Providers Care Power Transformer Inspector Name Role Phone Tristan Mills MD Primary Care Provider [phone] Laura Michaels MD Unavailable [phone] Cristofer Wilson MD Unavailable [phone] Esteban Carpenter MD Unavailable Mejia Ayon MD Unavailable Reason for Visit * Reason Comments Medication Refill Encounter Details Date Type Department Care Team (Late st Contact Info) Description 07/01/2023 Refill [facility] - Family Medicine - [place] [address] [place] [phone] Brooks Vazquez, CONTINUOUS DRYOUT OPERATOR HELPER, BET TAKER #[address] [address] Medication Refill Social History Tobacco Use Types [...] Telephone Encounter - Magda Bryson RN - 07/04/2023 7:06 AM CST Reordered through another [facility]. This [facility] location is closing. PLANNING CONSULTANT SALESPERSON documented in this encounter Plan of Treatment Not on file documented as of this encounter Visit Diagnoses Diagnosis Chronic maxillary sinusitis documented in this encounter Additional Health Concerns Infection Onset Date Last Indicated Resolved Time COVID - 19 09/28/2023 09/28/2023 10/08/2023 12:1 6 AM HOME PLANNING CONSULTANT SALESPERSON Assessment Noted Time PHQ-9 Depression Total Score: 0 05/06/20 23 2:49 PM CDT documented as of this encounter Care Teams Power Transformer Inspector Relationship Specialty Start Date End Date Tristan Mills MD #[address] [address] PCP - General Family Medicine 09/01/17 Laura Michaels MD #[address] [address] Consulting Physician Urology 09/25/18 Cristofer Wilson MD #[address] [address] General Surgery 09/25/18 Esteban Carpenter MD #2 [facility] [address] [place] [address] Consulting Physician Colon and Rectal Surgery 10/06/23 Mejia Ayon MD #2 [facility] [address] [place] [address] Consulting Physician Urology 02/29/24 documented as of this encounter
--- OUTSIDE RECORDS SUMMARY | 2024-10-12 14:35 | XMS_ITS | Encounter Summary ---
Author Organization [facility] Address [address] [place] [address] Phone Care Team Providers Care Foreclosure Clerk Name Role Phone Tristan Mills MD Primary Care Provider [phone] Laura Michaels MD Unavailable [phone] Cristofer Wilson MD Unavailable [phone] Esteban Carpenter MD Unavailable Mejia Ayon MD Unavailable Reason for Visit * Reason Comments Medication Refill Encounter Details Date Type Department Care Team (Late st Contact Info) Description [facility] [address] [place] [address] Tristan Mills MD #[address] [address] Medication Refill Social History Tobacco Use Types [...] Telephone Encounter - Magda Bryson RN - 11/20/2020 2:49 PM CDT Medication failed the protocol, provider to review and approve the medication order if appropriate. Requested Prescriptions Pending Prescriptions Disp Refills EPINEPHrine (EPIPEN) 0.3 MG/0.3ML Solution Auto-injector [Pharmacy Med Name: EPINEPHRINE 0.3 MG AUTO-INJECT] 2 auto injector Sig: INJECT 0.3 ML INTRAMUSCULARLY ONCE NEEDED FOR ANAPHYLAXIS Not Delegated - Immunology: Antidotes Failed - 11/19/2020 6:18 PM Failed - This refill cannot be delegated Passed - Valid encounter within last 12 months Past Office Visits Recent Outpatient Visits 2 months ago Diabetes mellitus type 2, noninsulin dependent (HCC) [facility] - Tristan Luciano MD 3 months ago Chronic right shoulder pain [facility] Brooks Raphael APN, NUT DEHYDRATOR OPERATOR 4 months ago Left inguinal hernia [facility] Tristan Luciano MD 5 months ago Essential hypertension [facility] - Brooks Raphael APN, NUT DEHYDRATOR OPERATOR 6 months ago Nephrolithiasis [facility] - Brooks Raphael APN, NUT DEHYDRATOR OPERATOR Upcoming Appointments Future Appointments In 1 week Tristan Mills MD [facility] CRUMB [facility]ACK[facility] - Recent and Past Visits Recent Visits Date Type Provider Dept 09/02/20 Office Visit Tristan Mills MD [facility] 07/25/20 Office Visit Brooks Vazquez APN, NILES [facility] 06/25/20 Office Visit Tristan Mills MD [facility] 06/02/20 Office Visit Brooks Vazquez APN, NILES [facility] 05/21/20 Office Visit Brooks Vazquez APN, NUT DEHYDRATOR OPERATOR [facility] 02/29/20 Office Visit Tristan Mills MD [...] 19 08/13/2021 08/17/2021 09/06/2021 12:1 6 AM DOCK PUMPER COVID - 19 Confirmed 08/17/2021 08/17/2021 022 12:16 AM DOCK PUMPER COVID - 19 04/11/2022 04/11/2022 04/21/2022 12:1 6 AM CDT COVID - 19 07/28/2022 07/28/2022 08/07/2022 12:1 6 AM DOCK PUMPER Influenza 07/28/2022 07/28/2022 08/04/2022 12:1 6 AM DOCK PUMPER Respiratory Rule Out - RPA 06/23/2023 06/23/2023 1 08/23/2022 5:23 PM CDT COVID - 19 09/28/2023 09/28/2023 10/08/2023 12:1 6 AM DOCK PUMPER Assessment Noted Time PHQ-9 Depression Total Score: 0 09/02/19 21 3:57 PM DOCK PUMPER documented as of this encounter Care Teams Foreclosure Clerk Relationship Specialty Start Date End Date Tristan Mills MD #[address] [address] PCP - General Family Medicine 09/01/17 Laura Michaels MD #2 [facility] [address] [place] [address] Consulting Physician Urology 09/25/18 Cristofer Wilson MD #2 [facility] [address] [place] [address] General Surgery 09/25/18 Esteban Carpenter MD #[address] [address] Consulting Physician Colon and Rectal Surgery 10/06/23 Mejia Ayon MD #2 [facility] [address] [place] [address] Consulting Physician Urology 02/29/24 documented as of this encounter
--- OUTSIDE RECORDS SUMMARY | 2024-10-12 14:35 | XMS_ITS | Encounter Summary ---
Author Organization [facility] Address [address] [place] [address] [place] [address] Phone Care Team Providers Care Signs And Displays Sales Representative Name Role Phone Tristan Mills MD Primary Care Provider [phone] Laura Michaels MD Unavailable [phone] Cristofer Wilson MD Unavailable [phone] Esteban Carpenter MD Unavailable Mejia Ayon MD Unavailable Reason for Visit * Reason Comments Medication Refill Encounter Details Date Type Department Care Team (Late st Contact Info) Description 10/26/2020 Refill [facility] - Family Medicine - [place] #2 [place] [phone] Brooks Vazquez, EDUCATIONAL PSYCHOLOGIST, SURGICAL ELASTIC KNITTER HAND FRAME #[address] [address] Medication Refill Social History Tobacco Use Types [...] Telephone Encounter - Magda Bryson RN - 10/27/2020 12:12 PM CST Medication failed the protocol, provider to review and approve the medication order if appropriate. Requested Prescriptions Pending Prescriptions Disp Refills cyclobenzaprine (FLEXERIL) 5 MG Tablet [Pharmacy Med Name: CYCLOBENZAPRINE 5 MG TABLET] 45 Tablet 1 Sig: TAKE 1 TAB BY MOUTH 3 TIMES DAILY NEEDED FOR MUSCLE SPASMS. Not Delegated - Analgesics: Muscle Relaxants Failed - 10/26/2020 10:09 AM Failed - This refill cannot be delegated Passed - Valid encounter within last 6 months Past Office Visits Recent Outpatient Visits 1 month ago Diabetes mellitus type 2, noninsulin dependent (HCC) [facility] - Tristan Luciano MD 3 months ago Chronic right shoulder pain [facility] - Brooks Raphael APN, SURGICAL ELASTIC KNITTER HAND FRAME 4 months ago Left inguinal hernia [facility] Tristan Luciano MD 4 months ago Essential hypertension [facility] - Brooks Raphael APN, SURGICAL ELASTIC KNITTER HAND FRAME 5 months ago Nephrolithiasis [facility] - Brooks Raphael APN, SURGICAL ELASTIC KNITTER HAND FRAME Upcoming Appointments Future Appointments In 1 month Tristan Mills MD [facility] Recent and Past Visits Recent Visits Date Type Provider Dept 09/02/20 Office Visit Tristan Mills MD [facility] 07/25/20 Office Visit Brooks Vazquez APN, NILES [facility] 06/25/20 Office Visit Tristan Mills MD [facility] 06/02/20 Office Visit Brooks Vazquez APN, NILES [facility] 05/21/20 Office Visit Brooks Vazquez APN, SURGICAL ELASTIC KNITTER HAND FRAME [facility] 02/29/20 Office Visit Tristan Mills [...] authorizing provider and meeting all other requirements SPREADER documented in this encounter Plan of Treatment Not on file documented as of this encounter Visit Diagnoses Not on filedocumented in this encounter Additional Health Concerns Infection Onset Date Last Indicated Resolved Time COVID - 19 03/06/2021 03/06/2021 03/07/2021 8:43 AM CDT COVID - 19 08/13/2021 08/17/2021 09/06/2021 12:1 6 AM LIME SPREADER COVID - 19 Confirmed 08/17/2021 08/17/2021 022 12:16 AM LIME SPREADER COVID - 19 04/11/2022 04/11/2022 04/21/2022 12:1 6 AM CDT COVID - 19 07/28/2022 07/28/2022 08/07/2022 12:1 6 AM LIME SPREADER Influenza 07/28/2022 07/28/2022 08/04/2022 12:1 6 AM LIME SPREADER Respiratory Rule Out - RPA 06/23/2023 06/23/2023 1 08/23/2022 5:23 PM CDT COVID - 19 09/28/2023 09/28/2023 10/08/2023 12:1 6 AM LIME SPREADER Assessment Noted Time PHQ-9 Depression Total Score: 0 09/02/19 21 3:57 PM LIME SPREADER documented as of this encounter Care Teams Signs And Displays Sales Representative Relationship Specialty Start Date End Date Tristan Mills MD #[address] [address] PCP - General Family Medicine 09/01/17 Laura Michaels MD #[address] [address] Consulting Physician Urology 09/25/18 Cristofer Wilson MD #[address] [address] General Surgery 09/25/18 Esteban Carpenter MD #[address] [address] Consulting Physician Colon and Rectal Surgery 10/06/23 Mejia Ayon MD #[address] [address] Consulting Physician Urology 02/29/24 documented as of this encounter
--- OUTSIDE RECORDS SUMMARY | 2024-10-12 14:35 | XMS_ITS | Encounter Summary ---
Author Organization [facility] Address [address] [place] [address] Phone Care Team Providers Care Herpetology Teacher Name Role Phone Tristan Mills MD Primary Care Provider [phone] Laura Michaels MD Unavailable [phone] Cristofer Wilson MD Unavailable [phone] Esteban Carpenter MD Unavailable Mejia Ayon MD Unavailable Reason for Visit * Reason Comments Medication Refill Encounter Details Date Type Department Care Team (Late st Contact Info) Description [facility] [address] [place] [address] Tristan Mills MD #[address] [address] Medication Refill Social History Tobacco Use Types [...] have Coronavirus / COVID-19? No / Unsure 12/02/2020 9:57 AM CDT documented as of this encounter Plan of Treatment Not on file documented as of this encounter Visit Diagnoses Not on filedocumented in this encounter Additional Health Concerns Infection Onset Date Last Indicated Resolved Time COVID - 19 03/06/2021 03/06/2021 03/07/2021 8:43 AM CDT COVID - 19 08/13/2021 08/17/2021 09/06/2021 12:1 6 AM TRENCH DIGGER HELPER COVID - 19 Confirmed 08/17/2021 08/17/2021 022 12:16 AM TRENCH DIGGER HELPER COVID - 19 04/11/2022 04/11/2022 04/21/2022 12:1 6 AM CDT COVID - 19 07/28/2022 07/28/2022 08/07/2022 12:1 6 AM TRENCH DIGGER HELPER Influenza 07/28/2022 07/28/2022 08/04/2022 12:1 6 AM TRENCH DIGGER HELPER Respiratory Rule Out - RPA 06/23/2023 06/23/2023 1 08/23/2022 5:23 PM CDT COVID - 19 09/28/2023 09/28/2023 10/08/2023 12:1 6 AM TRENCH DIGGER HELPER Assessment Noted Time PHQ-9 Depression Total Score: 0 09/02/19 21 3:57 PM TRENCH DIGGER HELPER documented as of this encounter Care Teams Herpetology Teacher Relationship Specialty Start Date End Date Tristan Mills MD #[address] [address] PCP - General Family Medicine 09/01/17 Laura Michaels MD #[address] [address] Consulting Physician Urology 09/25/18 Cristofer Wilson MD #2 [facility] [address] [place] [address] General Surgery 09/25/18 Esteban Carpenter MD #2 [facility] [address] [place] [address] Consulting Physician Colon and Rectal Surgery 10/06/23 Mejia Ayon MD #2 [facility] [address] [place] [phone] Consulting Physician Urology 02/29/24 documented as of this encounter
--- OUTSIDE RECORDS SUMMARY | 2024-10-12 14:35 | XMS_ITS | Encounter Summary ---
Author Organization [facility] Address [address] [place] [address] Phone Care Team Providers Care Instrument Worker Name Role Phone Tristan Mills MD Primary Care Provider [phone] Laura Michaels MD Unavailable [phone] Cristofer Wilson MD Unavailable [phone] Esteban Carpenter MD Unavailable Mejia Ayon MD Unavailable Reason for Visit * Reason Comments Medication Refill Encounter Details Date Type Department Care Team (Late st Contact Info) Description 04/19/2021 Refill [facility] #2 [place] [phone] Tristan Mills MD #[address] [address] Medication Refill Social History Tobacco Use Types [...] Telephone Encounter - Magda Bryson RN - 04/21/2021 9:35 AM CDT Medication failed the protocol, provider to review and approve the medication order if appropriate. Requested Prescriptions Pending Prescriptions Disp Refills cyclobenzaprine (FLEXERIL) 5 MG Tablet [Pharmacy Med Name: CYCLOBENZAPRINE 5 MG TABLET] 90 Tablet 1 Sig: TAKE 1 TAB BY MOUTH 3 TIMES DAILY NEEDED FOR MUSCLE SPASMS. Not Delegated - Muscle Relaxants Protocol Failed - 04/19/2021 9:26 PM Failed - This refill cannot be delegated Passed - Visit with relevant provider in past 12 months or upcoming 90 days Recent Visits Date Type Provider Dept 09/02/20 Office Visit Tristan Mills MD [facility] 07/25/20 Office Visit Brooks Vazquez APN, NILES [facility] 06/25/20 Office Visit Tristan Mills MD [facility] 06/02/20 Office Visit Brooks Vazquez APN, NILES [facility] 05/21/20 Office Visit Brooks Vazquez APN, MACHINE ADJUSTER LEADER [facility] Showing recent visits within past 365 days [...] 19 08/13/2021 08/17/2021 09/06/2021 12:1 6 AM COMPLAINT SPECIALIST COVID - 19 Confirmed 08/17/2021 08/17/2021 022 12:16 AM COMPLAINT SPECIALIST COVID - 19 04/11/2022 04/11/2022 04/21/2022 12:1 6 AM CDT COVID - 19 07/28/2022 07/28/2022 08/07/2022 12:1 6 AM COMPLAINT SPECIALIST Influenza 07/28/2022 07/28/2022 08/04/2022 12:1 6 AM COMPLAINT SPECIALIST Respiratory Rule Out - RPA 06/23/2023 06/23/2023 1 08/23/2022 5:23 PM CDT COVID - 19 09/28/2023 09/28/2023 10/08/2023 12:1 6 AM COMPLAINT SPECIALIST Assessment Noted Time PHQ-9 Depression Total Score: 0 09/02/19 21 3:57 PM COMPLAINT SPECIALIST documented as of this encounter Care Teams Instrument Worker Relationship Specialty Start Date End Date Tristan Mills MD #2 [facility] [address] [place] [address] PCP - General Family Medicine 09/01/17 Laura Michaels MD #2 [facility] [address] [place] [address] Consulting Physician Urology 09/25/18 Cristofer Wilson MD #2 [facility] [address] [place] [address] General Surgery 09/25/18 Esteban Carpenter MD #2 [facility] [address] [place] [address] Consulting Physician Colon and Rectal Surgery 10/06/23 Mejia Ayon MD #2 [facility] [address] [place] [address] Consulting Physician Urology 02/29/24 documented as of this encounter
--- OUTSIDE RECORDS SUMMARY | 2024-10-12 14:35 | XMS_ITS | Encounter Summary ---
Author Organization [facility] Address [address] [place] [address] Phone Care Team Providers Care Animal Feeder Name Role Phone Tristan Mills MD Primary Care Provider [phone] Laura Michaels MD Unavailable [phone] Cristofer Wilson MD Unavailable [phone] Esteban Carpenter MD Unavailable Mejia Ayon MD Unavailable Reason for Visit * Reason Comments Medication Refill Encounter Details Date Type Department Care Team (Late st Contact Info) Description 06/27/2020 Refill [facility] [address] [place] [address] Tristan Mills MD [address] [address] Medication Refill Social History Tobacco Use Types [...] COVID-19? No / Unsure 06/25/2020 4:11 PM SALES SERVICE MANAGER documented as of this encounter Miscellaneous Notes * Telephone Encounter - Anayeli Gamboa RN - 06/27/2020 10:24 AM CST Medication failed the protocol, provider to review and approve the medication order if appropriate. Requested Prescriptions Pending Prescriptions Disp Refills busPIRone (BUSPAR) 15 MG Tablet [Pharmacy Med Name: BUSPIRONE HCL 15 MG TABLET] 60 Tab 0 Sig: TAKE 1 TABLET BY MOUTH TWICE A DAY Not Delegated - Psychiatry: Anxiolytics/Hypnotics Failed - 06/27/2020 12:26 AM Failed - This refill cannot be delegated Passed - Valid encounter within last 6 months Past Office Visits Recent Outpatient Visits 2 days ago [facility] Tristan Luciano MD 3 weeks ago Essential hypertension [facility] Raphael APN, SOLUTIONS OPERATOR 1 month ago Nephrolithiasis [facility] Raphael APN, SOLUTIONS OPERATOR 3 months ago Anxiety [facility] Tristan Luciano MD 8 months ago Diabetes mellitus type 2, noninsulin dependent (HCC) [facility] Tristan Luciano MD Upcoming Appointments Future Appointments In 5 days Adrián Rivers MD [facility] General Surgery - [place] In 1 week SAHCUSTECH1; SAHCUS1 [facility], [facility] In 1 week SAHCCT1 [facility] CT, [facility] In 2 months Tristan Mills MD [facility] [place] NURSE AIDE - Recent and Past Visits Recent Visits Date Type Provider Dept 06/25/20 Office Visit Tristan Mills MD [facility] [place] 06/02/20 Office Visit Brooks Vazquez APN, SOLUTIONS OPERATOR [facility] [place] 05/21/20 Office Visit Brooks Vazquez APN, SOLUTIONS OPERATOR [facility] 02/29/20 Office Visit Tristan Mills MD [facility] 10/30/19 Office Visit Tristan Mills MD [facility] 07/26/19 Office Visit Tristan Mills MD [facility] 05/28/19 Office Visit Magaly Casey Marie, PAC [facility] 04/26/19 Office Visit Tristan Mills MD [facility] [place] Showing recent visits within past 460 days with a meds authorizing provider and meeting all other requirements Future Appointments Date Type Provider Dept 09/02/20 Appointment Tristan Mills MD [facility] Showing future appointments within next 90 days with a meds authorizing provider and meeting all other requirements glimepiride (AMARYL) 1 MG Tablet [Pharmacy Med Name: GLIMEPIRIDE 1 MG TABLET] 30 Tab 11 Sig: TAKE 1 TABLET BY MOUTH EVERY DAY IN THE MORNING Endocrinology: Diabetes - Sulfonylureas Passed - 06/27/2020 12:26 AM Passed - Valid encounter within last 12 months Past Office Visits Recent Outpatient Visits 2 days ago Left inguinal hernia [facility] Family [facility] - Tristan Luciano MD 3 weeks ago Essential hypertension [facility] Rap[facility] APN, NILES 1 month ago Nephrolithiasis [facility] APN, NILES 3 months ago Anxiety [facility] - Tristan Luciano MD 8 months ago Diabetes mellitus type 2, noninsulin dependent (HCC) [facility] - Tristan Luciano MD Upcoming Appointments Future Appointments In 5 days Adrián Rivers MD [facility] General Surgery - [place] In 1 week SAHCUSTECH1; SAHCUS1 [facility] Ultrasound, [facility] In 1 week [facility] In 2 months Tristan Mills MD [facility] - [facility] Medicine - [place] NURSE AIDE - Recent and Past Visits Recent Visits Date Type Provider Dept 06/25/20 Office Visit Tristan Mills MD [facility] 06/02/20 Office Visit Boroks Vazquez APN, SOLUTIONS OPERATOR [facility] 05/21/20 Office Visit Brooks Vazquez APN, SOLUTIONS OPERATOR [facility] 02/29/20 Office Visit Tristan Mills MD [facility] 10/30/19 Office Visit Tristan Mills MD [facility] 07/26/19 Office Visit Tristan Mills MD [facility] 05/28/19 Office Visit Magaly Casey, [facility] [place] 04/26/19 Office Visit Tristan Mills MD [facility] [...] range BP Readings from Last 1 Encounters: 06/25/20 130/78 S SERVICE MANAGER documented in this encounter Plan of Treatment Not on file documented as of this encounter Visit Diagnoses Not on filedocumented in this encounter Additional Health Concerns Infection Onset Date Last Indicated Resolved Time COVID - 19 03/06/2021 03/06/2021 03/07/2021 8:43 AM CDT COVID - 19 08/13/2021 08/17/2021 09/06/2021 12:1 6 AM SALES SERVICE MANAGER COVID - 19 Confirmed 08/17/2021 08/17/2021 022 12:16 AM SALES SERVICE MANAGER COVID - 19 04/11/2022 04/11/2022 04/21/2022 12:1 6 AM CDT COVID - 19 07/28/2022 07/28/2022 08/07/2022 12:1 6 AM SALES SERVICE MANAGER Influenza 07/28/2022 07/28/2022 08/04/2022 12:1 6 AM SALES SERVICE MANAGER Respiratory Rule Out - RPA 06/23/2023 06/23/2023 1 08/23/2022 5:23 PM CDT COVID - 19 09/28/2023 09/28/2023 10/08/2023 12:1 6 AM SALES SERVICE MANAGER Assessment Noted Time PHQ-9 Depression Total Score: 0 06/25/20 20 4:52 PM SALES SERVICE MANAGER documented as of this encounter Care Teams Animal Feeder Relationship Specialty Start Date End Date Tristan Mills MD #2 [facility] [address] [place] [address] PCP - General Family Medicine 09/01/17 Laura Michaels MD #2 [facility] [address] [place] [address] Consulting Physician Urology 09/25/18 Cristofer Wilson MD #2 [facility] [address] [place] [address] General Surgery 09/25/18 Esteban Carpenter MD #2 [facility] [address] [place] [address] Consulting Physician Colon and Rectal Surgery 10/06/23 Mejia Ayon MD #2 [facility] [address] [place] [address] Consulting Physician Urology 02/29/24 documented as of this encounter
--- OUTSIDE RECORDS SUMMARY | 2024-10-12 14:35 | XMS_ITS | Encounter Summary ---
Author Organization [facility] Address [address] [place] [address] [address] Phone Care Team Providers Care Emergency Doctor Name Role Phone Tristan Mills MD Primary Care Provider [phone] Laura Michaels MD Unavailable [phone] Cristofer Wilson MD Unavailable [phone] Esteban Carpenter MD Unavailable Mejia Ayon MD Unavailable Reason for Visit * Reason Comments Medication Refill Encounter Details Date Type Department Care Team (Late st Contact Info) Description 12/27/2019 [facility] [address] [place] [address] Tristan Mills MD #[address] [address] Medication Refill Social History Tobacco Use Types [...] on file documented as of this encounter Plan of Treatment Not on file documented as of this encounter Visit Diagnoses Not on filedocumented in this encounter Additional Health Concerns Infection Onset Date Last Indicated Resolved Time COVID - 19 03/06/2021 03/06/2021 03/07/2021 8:43 AM CDT COVID - 19 08/13/2021 08/17/2021 09/06/2021 12:1 6 AM WEB ARCHITECT COVID - 19 Confirmed 08/17/2021 08/17/2021 022 12:16 AM WEB ARCHITECT COVID - 19 04/11/2022 04/11/2022 04/21/2022 12:1 6 AM CDT COVID - 19 07/28/2022 07/28/2022 08/07/2022 12:1 6 AM WEB ARCHITECT Influenza 07/28/2022 07/28/2022 08/04/2022 12:1 6 AM WEB ARCHITECT Respiratory Rule Out - RPA 06/23/2023 06/23/2023 1 08/23/2022 5:23 PM CDT COVID - 19 09/28/2023 09/28/2023 10/08/2023 12:1 6 AM WEB ARCHITECT Assessment Noted Time PHQ-9 Depression Total Score: 0 10/30/19 20 3:24 PM CDT documented as of this encounter Care Teams Emergency Doctor Relationship Specialty Start Date End Date Tristan Mills MD #[address] [address] PCP - General Family Medicine 09/01/17 Laura Michaels MD #[address] [address] Consulting Physician Urology 09/25/18 Cristofer Wilson MD #[address] [address] General Surgery 09/25/18 Esteban Carpenter MD #2 [facility] [address] [place], [place] [id number] Consulting Physician Colon and Rectal Surgery 10/06/23 Mejia Ayon MD #2 [facility] [address] [place] [address] Consulting Physician Urology 02/29/24 documented as of this encounter
--- OUTSIDE RECORDS SUMMARY | 2024-10-12 14:36 | XMS_ITS | Encounter Summary ---
Author Organization [facility] Address [address] [place] [address] [place] [address] Phone Care Team Providers Care Physician Specialist Name Role Phone Tristan Mills MD Primary Care Provider [phone] Laura Michaels MD Unavailable [phone] Cristofer Wilson MD Unavailable [phone] Esteban Carpenter MD Unavailable Mejia Ayon MD Unavailable Reason for Visit * Reason Comments Medication Refill Encounter Details Date Type Department Care Team (Late st Contact Info) Description 08/13/2022 Refill [facility] - Family Medicine [facility] #2 [place] [id number] Tristan Mills MD [address] [address] Medication Refill Social History Tobacco Use Types Packs/Day Years Used Date Smoking Tobacco: Never Smokeless Tobacco: Never Alcohol Use Standard Drinks/Week Comments Yes 1 (1 standard drink = 0.6 oz pur e alcohol) Socially PHQ-2 Answer Date Recorded Total Score - Questions 1-9 0 11/20 Sexually Active Control Partners Comments Not Currently [...] suspected to have Coronavirus/COVID-19? No / Unsure 08/01/2022 1:23 PM GEOTHERMAL TECHNICIAN documented as of this encounter Miscellaneous Notes * Telephone Encounter - Magda Bryson RN - 08/13/2022 10:42 AM CST Medication failed the protocol, provider to review and approve the medication order if appropriate. Requested Prescriptions Pending Prescriptions Disp Refills lisinopril (PRINIVIL, ZESTRIL) 40 MG Tablet [Pharmacy Med Name: LISINOPRIL 40 MG TABLET] 90 Tablet 3 Sig: TAKE 1/2 TABLET BY MOUTH TWICE DAILY BART Inhibitors Protocol Failed - 08/13/2022 12:00 AM Failed - Serum potassium on record in past 12 months No results found for: POTASSIUM, POCTK Failed - GFR on record in past 12 months No results found for: GFRNA Passed - Blood pressure on record in past 12 months Clinician-entered: BP Readings from Last 3 Encounters: 08/01/22 136/82 07/28/22 116/62 07/05/22 102/68 Patient-entered: No data recorded Passed - Visit with relevant provider in past 12 months or upcoming 90 days Recent Visits Date Type Provider Dept 07/05/22 Office Visit Brooks Vazquez APRN, [facility] [place] 03/19/22 Office Visit Tristan Mills MD [facility] 12/07/21 Office Visit Tristan Mills MD [facility] Showing recent visits within past 365 days and meeting all other requirements Future Appointments Date Type Provider Dept 10/05/22 Appointment Tristan Mills MD [facility] Showing future appointments within next 90 days and meeting all other requirements HERMAL TECHNICIAN documented in this encounter Plan of Treatment Not on file documented as of this encounter Visit Diagnoses Not on filedocumented in this encounter Additional Health Concerns Infection Onset Date Last Indicated Resolved Time Respiratory Rule Out - RPA 06/23/2023 06/23/2023 1 08/23/2022 5:23 PM CDT COVID - 19 09/28/2023 09/28/2023 10/08/2023 12:1 6 AM GEOTHERMAL TECHNICIAN Assessment Noted Time PHQ-9 Depression Total Score: 0 12/08/19 22 11:00 AM CDT documented as of this encounter Care Teams Physician Specialist Relationship Specialty Start Date End Date Tristan Mills MD #2 [facility] [address] [place] [address] PCP - General Family Medicine 09/01/17 Laura Michaels MD #2 [facility] [address] [place] [address] Consulting Physician Urology 09/25/18 Cristofer Wilson MD #2 [facility] [address] [place] [address] General Surgery 09/25/18 Esteban Carpenter MD #2 [facility] [address] [place] [address] Consulting Physician Colon and Rectal Surgery 10/06/23 Mejia Ayon MD #2 [facility] [address] [place] [address] Consulting Physician Urology 02/29/24 documented as of this encounter
--- OUTSIDE RECORDS SUMMARY | 2024-10-12 14:36 | XMS_ITS | Encounter Summary ---
Author Organization [facility] Address [address] [place] [address] Phone Care Team Providers Care Meter Reader Name Role Phone Tristan Mills MD Primary Care Provider [phone] Laura Michaels MD Unavailable [phone] Cristofer Wilson MD Unavailable [phone] Esteban Carpenter MD Unavailable Mejia Ayon MD Unavailable Reason for Visit * Reason Comments Medication Refill Encounter Details Date Type Department Care Team (Late st Contact Info) Description 09/13/2022 Refill [facility] #2 [place] [phone] Tristan Mills MD #[address] [address] Medication Refill Social History Tobacco Use Types [...] Telephone Encounter - Magda Bryson RN - 09/13/2022 4:54 PM CST Medication failed the protocol, provider to review and approve the medication order if appropriate. Requested Prescriptions Pending Prescriptions Disp Refills metFORMIN (GLUCOPHAGE) 1000 MG Tablet [Pharmacy Med Name: METFORMIN HCL 1,000 MG TABLET] 180 Tablet1 Sig: TAKE 1 TABLET BY MOUTH TWICE A DAY WITH MEALS Biguanides Protocol Failed - 09/13/2022 2:28 PM Failed - HgA1C on record in past 6 months No results found for: HGBA1C Failed - GFR on record in past 6 months No results found for: GFRNA Passed - Visit with relevant provider in past 6 months or upcoming 90 days Recent Visits Date Type Provider Dept 07/05/22 Office Visit Brooks Vazquez APRN, [facility] 03/19/22 Office Visit Tristan Mills MD [facility] Showing recent visits within past 182 days and meeting all other requirements Future Appointments Date Type Provider Dept 10/05/22 Appointment Tristan Mills MD [facility] Showing future appointments within next 90 days and meeting all other requirements ESSING TALC AND BORATE SUPERVISOR documented in this encounter Plan of Treatment Not on file documented as of this encounter Visit Diagnoses Not on filedocumented in this encounter Additional Health Concerns Infection Onset Date Last Indicated Resolved Time Respiratory Rule Out - RPA 06/23/2023 06/23/2023 1 08/23/2022 5:23 PM CDT COVID - 19 09/28/2023 09/28/2023 10/08/2023 12:1 6 AM PROCESSING TALC AND BORATE SUPERVISOR Assessment Noted Time PHQ-9 Depression Total Score: 0 12/08/19 22 11:00 AM CDT documented as of this encounter Care Teams Meter Reader Relationship Specialty Start Date End Date Tristan Mills MD #[address] [address] PCP - General Family Medicine 09/01/17 Laura Michaels MD #2 [facility] [address] [place] [address] Consulting Physician Urology 09/25/18 Cristofer Wilson MD #2 [facility] [address] [place] [address] General Surgery 09/25/18 Esteban Carpenter MD #2 [facility] [address] [place] [address] Consulting Physician Colon and Rectal Surgery 10/06/23 Mejia Ayon MD #2 [facility] [address] [place] [address] Consulting Physician Urology 02/29/24 documented as of this encounter
--- OUTSIDE RECORDS SUMMARY | 2024-10-12 14:36 | XMS_ITS | Clinical Summary ---
Author Organization [facility] Address [address], [address] [address] Phone Care Team Providers Care Plastic Molder Name Role Phone Tristan Mills MD Primary Care Provider Laura Michaels MD Unavailable [phone] Cristofer Wilson MD Unavailable [phone] Esteban Carpenter MD Unavailable Mejia Ayon MD Unavailable Allergies Active Allergy Reactions Criticality Noted Date Comments Bee Venom Anaphylaxis High 10/07/2017 Chocolate Hives Medium 03/06/2021 Latex Hives,Itching High 09/22/2018 Atenolol Hives High Medications FREESTYLE LANCETS Misc Use one lancet daily. DX E11.9 100 Lancet 3 02/16/20 18 Active Cyanocobalamin (B-12) 1000 MCG Capsule Take 1,000 mcg by mouth Every other day. 30 Cap 3 03/12/20 18 Active Glucose Blood (FREESTYLE LITE) StripIndications: Diabetes mellitus type 2, noninsulin dependent (HCC) E11.9 Check glucose daily Free style lite 100 Strip 3 04/20/20 18 Active FREESTYLE LITE StripIndications: Diabetes mellitus type 2, noninsulin dependent (HCC) E11.9 CHECK GLUCOSE DAILY FREE STYLE LITE 100 Strip 1 07/21/20 18 Active Black Cohosh 540 MG Capsule Take 540 mg by mouth daily. Active Cholecalciferol (VITAMIN D3 PO) Take 25 mg by mouth daily. Active Blood Glucose Monitoring Suppl DeviceIndications :Diabetes mellitus type 2, noninsulin dependent (HCC) Diagnosis: Diabetes type 2 Blood testing frequency: once a day Dx: E11.9 1 Each 05/28/20 19 Active cetirizine (ZYRTEC) 10 MG Tablet daily. 08/04/20 19 Active Lancets (Modern MeadowTouch Delica Plus [id number]) Misc TEST ONCE DAILY DX E11.9 100 Each 2 06/23/20 20 Active EPINEPHrine (EPIPEN) 0.3 MG/0.3ML Solution Auto-injector INJECT 0.3 ML INTRAMUSCULARLY ONCE NEEDED FOR ANAPHYLAXIS 2 mL 1 12/28/19 23 Active Additional Information Patient not taking.Reported on 09/28/2023 escitalopram (LEXAPRO) 20 MG Tablet Take 1 Tablet by mouth daily. 90 Tablet 3 06/24/20 23 Active metroNIDAZOLE (Flagyl) 500 MG Tablet Take 1 Tablet by mouth 3 times daily. 30 Tablet 09/17/19 24 Active Additional Information Patient not taking.Reported on 04/24/2024 HYDROcodone-aceta minophen (NORCO) 5-325 MG TabletIndications :Acute diverticulitis Take 1 Tablet by mouth every 6 hours as needed for Moderate or more severe pain. 15 Tablet 09/17/19 24 Active Additional Information Patient not taking.Reported on 02/28/2024 HYDROcodone-aceta minophen (NORCO) 5-325 MG TabletIndications :Closed fracture of proximal phalanx of lesser toe of right foot, initial encounter Take 1 Tablet by mouth every 8 hours as needed for Moderate or more severe pain. 12 Tablet 02/06/20 24 Active Additional Information Patient not taking.Reported on 02/28/2024 metFORMIN (GLUCOPHAGE) 1000 MG Tablet TAKE 1 TABLET BY MOUTH TWICE A DAY WITH FOOD 180 Tablet 1 05/21/20 24 Active fluticasone (FLONASE) 50 MCG/ACT Suspension SPRAY 1-2 SPRAYS IN EACH NOSTRIL EVERY DAY DIRECTED 16 mL 3 06/14/20 24 Active busPIRone (BUSPAR) 15 MG Tablet TAKE 1 TABLET BY MOUTH THREE TIMES A DAY 90 Tablet 3 06/27/20 24 Active lisinopril (PRINIVIL, ZESTRIL) 40 MG Tablet TAKE 1/2 TABLET TWICE A DAY BY MOUTH 90 Tablet 3 07/24/20 24 Active carvedilol (COREG) 3.125 MG Tablet TAKE 1 TABLET BY MOUTH TWICE A DAY 180 Tablet 3 07/24/20 24 Active glimepiride (AMARYL) 1 MG Tablet TAKE 1 TABLET BY MOUTH EVERY DAY WITH BREAKFAST 90 Tablet 3 07/24/20 24 Active cyclobenzaprine (FLEXERIL) 5 MG Tablet TAKE 1 TABLET BY MOUTH THREE TIMES A DAY NEEDED FOR MUSCLE SPASM 90 Tablet 08/23/19 25 Active OneTouch Verio Strip USE TO TEST ONCE DAILY 50 Strip 6 08/30/19 25 Active Active Problems Problem Noted Date Diagnosed Date Diverticulitis 09/19/2023 Skin lesion of breast 09/13/2023 Postmenopausal 09/13/2023 Subacute maxillary sinusitis 09/13/2023 Right elbow pain 10/09/2022 Noncompliance 03/19/2022 Trigger ring finger of left hand 12/07/2021 High blood pressure 09/02/2020 Chronic right shoulder pain 06/27/2020 Chronic joint pain 02/29/2020 Hot flashes 10/30/2019 Seasonal allergies 07/26/2019 Sinus congestion 07/26/2019 Recurrent pain of right knee 01/09/2019 Anxiety 01/09/2019 Anemia, normocytic normochromic 11/12/2018 Renal cell carcinoma of left kidney 10/17/2018 Acute blood loss as cause of postoperative anemi a 09/25/2018 Cellulitis of abdominal wall 09/25/2018 Paraumbilical hernia 07/09/2018 Left renal mass 07/09/2018 Hepatic steatosis 07/09/2018 RUQ pain 07/09/2018 Calculus of gallbladder with out cholecystitis without obstruction 03/28/2018 Abnormal abdominal ultrasound 03/28/2018 Elevated vitamin B12 level 03/12/2018 Vitamin D insufficiency 10/31/2017 B12 deficiency 10/31/2017 Obesity (BMI 30-39.9) 09/20/2017 Elevated liver enzymes 09/20/2017 Mass of left side of neck 09/20/2017 Otalgia, right 09/20/2017 Encounter for immunization 06/23/2017 Screening for malignant neoplasm of colon 2016 Acute non-recurrent frontal sinusitis 06/23/2017 Dyslipidemia 06/23/2017 Tendonitis of ankle 03/15/2017 Primary osteoarthritis of right hand 12/03/2016 Swelling of left hand 11/25/2016 HTN (hypertension) Diabetes mellitus type 2, noninsulin dependent Depression Obesity Encounters Date Type Department Care Team Description 10/02/2024 Telephone [facility] [address] [place] [phone] Tristan Mills MD Appointment 08/29/2024 [facility]ill [facility] [place] [address] Tristan Mills MD Medication Refill 08/21/2024 Refill [facility] [place] [address] Tristan Mills MD Medication Refill 07/23/2024 Refill [facility] [place] [address] Tristan Mills MD Medication Refill from Last 3 Months Immunizations Immunization Administration Dates Next Due Albumin IV 09/22/2018 Influenza Vaccine greater than 3 yrs 05/22/2013, 09/25/2008 Influenza Vaccine, Quadrivalent, PF 04/22,07/05/2022,07/24/2021,2019,05/28/2019,07/26/2018,06/23/2017,1 Influenza, Seasonal, Injecta ble, Undefined 05/22/2013 Pneumococcal Vaccine - 13 Valent 07/24/2021 Pneumococcal Vaccine Adult - 23 Valent 09/22/2008 Td (Adult) 09/25/2008 Tetanus Toxoid, Unspecified Formulation 09/22/2008 Family History Medical History Relation Name Comments Heart Attack Brother No Known Problems Daughter 1 No Known Problems Daughter 2 Cancer Father Heart Attack Father Hypertension Father Lung Cancer Father Other-comment Father Pnuemonia Stroke Father Alzheimer's Disease Maternal Grandfather Cancer Maternal Grandmother Lung Cancer Maternal Grandmother Cancer Mother pancreatic Depression Paternal Grandfather Cancer Paternal Grandmother Colon Cancer Paternal Grandmother Schizophrenia Sister No Known Problems Son Relation Name Status Comments Brother Daughter 1 Alive Daughter 2 Alive Father PNEUMONIA Maternal Grandfather Maternal Grandmother Mother Paternal Grandfather Paternal Grandmother colon c ancer Sister Alive Son Alive Social History Tobacco Use Types Packs/Day Years Used Date Smoking Tobacco: Never Smokeless Tobacco: Never Tobacco Cessation:Counseling Given: Not Answered Alcohol Use Standard Drinks/Week Comments Yes 1 (1 standard drink = 0.6 oz pur e alcohol) Socially C Utilities Answer Date Recorded In the past 12 months has th e electric, gas, oil, or water company threatened [...] week 09/13/2023 How often do you attend [facility] or orthodox services? More than 4 times per year 09/13/2023 Do you belong to any clubs o r organizations such as scientology groups, unions, fraternal or athletic groups, or [...] Total Score - Questions 1-9 0 04/22 [facility] [place] of Occupat ional Health - Occupational Stress [...] place to sleep or slept in a fci (including now)? No 09/13/2023 Education Answer Date [...] Sign Reading Time Taken Comments Blood Pressure 130/84 02/29/2024 7:56 AM CDT Pulse 56 02/29/2024 7:56 AM CDT Temperature 36.7 C (98 F) 02/06/2024 3:23 PM CDT Respiratory Rate 20 02/29/2024 7:56 AM CDT Oxygen Saturation 100% 02/29/2024 7:56 AM CDT Inhaled Oxygen Concentration - - Weight 72.1 kg (159 lb) 04/24/2024 9:42 AM CDT Height 149.9 cm (4' 11 ) 04/24/2024 9:42 AM CDT Body Mass Index 32.11 04/24/2024 9:42 AM CDT Plan of Treatment Health Maintenance Due Date Last Done Comments TdaP Immunization 1967 Hepatitis B Immunization (1 of 3 - 19+ 3-dose series) 1986 Zoster Immunization (1 of 2) 1986 HPV/Cotest 1997 Cologuard 2017 Immunochemical Fecal Occult Blood 2017 Diabetes: Hemoglobin A1c 02/27/2021 021, 02/29/2020, 10/30/2019, Additional history exists SARS-COV-2 Immunization (3 - Pfizer risk series) 05/17/2021 04/19/2021, 03/29/2021 Pneumococcal Immunization (50+ years) (3 of 3 - PPSV23, PCV20 or PCV21) 09/18/2021 07/24/2021, 09/22/2008 Colonoscopy 10/19/2022 10/19/2017 Colorectal Cancer Screening 10/19/2022 Diabetes: Foot Exam 10/19/2022 10/19/2021 Influenza Immunization (#1) 04/22/202404/22, 07/05/2022, 07/24/2021, Additional history exists Diabetes: Nephropathy Screening 09/17/2024 09/17/2023, 05/20/2020, 05/24/2019, Additional history exists Diabetes: Eye Exam 11/17/2024 11/18/2023 Mammogram 11/23/2024 11/24/2023, 09/23, 09/06/2020, Additional history exists Respiratory Syncytial Virus (RSV) Immunization (Adult) (1 - 1-dose 75+ series) 2042 10/19/2017 Hepatitis C Virus (HCV) Screening Completed 09/23/2017 Pneumococcal Immunization Combined Discontinued 07/24/2021, 09/22/2008 Cervical Cancer Screening (CCS) Discontinued Meningococcal Immunization (ACWY) Aged Out No longer eligible based on patient's age to complete this topic Pap Smear Discontinued Rotavirus Immunization Aged Out No lo nger eligible based on patient's age to complete this topic Medical Devices Implanted Type Area Automotive Machinist Apprentice Device Identifier Shelf Expiration Date Model / Serial / Lot Agent Hemostatic Surgiflo Evithrom Gelatin Topical Kit Ndl Free Vial Adpr Multibend Flextip 8mlstrl - [id number] Implanted:Qty: 1 on 09/22/2018 by Cristofer Wilson MD at [facility] IMPLANT Left: Kidney [employer] 10/20/2019 [id number] / [id number] / [id number] Procedures Procedure Name Priority Date/Time Associated Diagnosis Comments MIGUEL SCREENING BILATERAL DIGITAL W CAD W WALDEMAR Routine 11/24/2023 2:55 PM CDT Encounter for screening mammogram for breast cancer HM DILATED EYE EXAM 11/18/2023 1 2:00 AM CDT CMP (COMPREHENSIVE METABOLIC PANEL) STAT 09/17/2023 11:20 AM H[facility]SE RAN[facility] EXTERNAL PODIATRY REFERRAL Routine 10/19/2021 12:00 AM HORSE RANCHER Ingrown nail of great toe of right foot HEMOGLOBIN A1C W/ ESTIMATED GLUCOSE Routine 08/30/2020 11:44 AM HORSE RANCHER Diabetes mellitus type 2, noninsulin dependent (HCC) HEPATITIS PANEL ACUTE (AHP) Routine 09/23/2017 11:52 AM HORSE RANCHER Elevated liver enzymes from Last 3 Months or Most Recently Relevant to Health Maintenance Results * MIGUEL SCREENING BILATERAL DIGITAL W CAD W WALDEMAR (11/24/2023 2:55 PM CDT) Anatomical Region Laterality Modality breast Bilateral Mammography 11/24/2023 2:04 PM CDT Narrative 11/25/2023 10:37 AM CDT - MIGUEL SCREENING BILATERAL DIGITAL W CAD W WALDEMAR BILATERAL DIGITAL SCREENING MAMMOGRAM 3D/2D WITH CAD WITH MEDIOLATERAL OBLIQUE CRANIOCAUDAL: 11/24/2023 The study was acquired using digital technology and interpreted from soft copy. Current study was also evaluated with ICAD version 7.2. 2D digital mammographic views, as well as 3D digital tomosynthesis were performed in the CC and MLO projections. CLINICAL: Routine screening. Patient has no complaints. She has a delicate inframammary fold. Personal history of renal cancer. No family history of breast cancer. COMPARISONS: Comparison is made to exams dated: 10/12/2021, 09/06/2020, and 10/30/2018 [facility]. BREAST TISSUE:There are scattered fibroglandular densities in both breasts. FINDINGS: No significant masses, calcifications, or other findings are seen in either breast. There has been no significant interval change. IMPRESSION: BI-RAD 1 NEGATIVE There is no mammographic evidence of malignancy. A 1 year screening mammogram is recommended. A letter will be sent to the patient with these results. The patient will be entered into a reminder system with a target due date of 1 year for her next screening exam. Electronically signed by: Nancy baltazar/becca:11/24/2023 16:44:56 House Mover(s): RT Sergio(R)(M), [facility] letter sent: Normal Exam Reading location: [facility] BI-RADS: 1 Negative Procedure Note Nancy Baca MD - 11/25/2023 - MIGUEL SCREENING BILATERAL DIGITAL W CAD W WALDEMAR BILATERAL DIGITAL SCREENING MAMMOGRAM 3D/2D WITH CAD WITH MEDIOLATERAL OBLIQUE CRANIOCAUDAL: 11/24/2023 The study was acquired using digital technology and interpreted from soft copy. Current study was also evaluated with ICAD version 7.2. 2D digital mammographic views, as well as 3D digital tomosynthesis were performed in the CC and MLO projections. CLINICAL: Routine screening. Patient has no complaints. She has a delicate inframammary fold. Personal history of renal cancer. No family history of breast cancer. COMPARISONS: Comparison is made to exams dated: 10/12/2021, 09/06/2020, and 10/30/2018 [facility]. BREAST TISSUE:There are scattered fibroglandular densities in both breasts. FINDINGS: No significant masses, calcifications, or other findings are seen in either breast. There has been no significant interval change. IMPRESSION: BI-RAD 1 NEGATIVE There is no mammographic evidence of malignancy. A 1 year screening mammogram is recommended. A letter will be sent to the patient with these results. The patient will be entered into a reminder system with a target due date of 1 year for her next screening exam. Electronically signed by: Nancy Baca M.D. ll/penrad:11/24/2023 16:44:56 House Mover(s): RT Sergio(R)(M), [facility] letter sent: Normal Exam Reading location: [facility] BI-RADS: 1 Negative Tristan Mills MD IMG MAMMO ORDERABLES Final Result * DILATED EYE EXAM (11/18/2023 12:00 AM CDT) 11/18/2023 Provider Scan PROCEDURE/MINOR SURGICAL ORDERAB LES Final Result SCAN * (ABNORMAL) Comprehensive Metabolic Panel (Cmp) [id number] (09/17/2023 11:20 AM HORSE RANCHER) SODIUM 137 136 - 145 mmol/L 09/17/2023 11:[address] [facility] POTASSIUM 4.5 3.5 - 5.1 mmol/L 09/17/2023 11:[address] [facility] CHLORIDE 104 98 - 107 mmol/L 09/17/2023 11:57 AM [facility] CO2, VENOUS 25 22 - 30 mmol/L 09/17/2023 11:57 AM [facility] ANION GAP 12.5 <18.0 mmol/L 09/17/2023 11:57 AM [facility] GLUCOSE 200(H) 70 - 99 mg/dL 09/17/2023 11:57 AM [facility] BUN 20 10 - 20 mg/dL 09/17/2023 11:57 AM [facility] CREATININE, BLOOD 1.02(H) 0.60 - 1.00 mg/dL 09/17/2023 11:57 AM [facility] BUN/CREATININE RATIO 20 12 - 20 ratio 09/17/2023 11:57 AM [facility] TOTAL PROTEIN 7.4 6.3 - 8.2 g/dL 09/17/2023 11:57 AM [facility] ALBUMIN 4.3 3.5 - 5.0 g/dL 09/17/2023 11:57 AM [facility] A/G RATIO 1.4 1.0 - 2.2 09/17/2023 11:57 AM [facility] CALCIUM 9.4 8.7 - 10.5 mg/dL 09/17/2023 11:57 AM [facility] T BILI 0.8 0.2 - 1.2 mg/dL 09/17/2023 11:57 AM [facility] SGOT (AST) 13 5 - 34 U/L 09/17/2023 11:57 AM [facility] SGPT (ALT) 21 0 - 55 U/L 09/17/2023 11:57 AM [facility] ALKALINE PHOSPHATASE 78 40 - 150 U/L 09/17/2023 11:57 AM [facility] GFR, ESTIMATED >60 >=60 09/17/2023 11:57 AM [facility] Comment: Creatinine Clearance is the preferred criteria for selecting drug dose adjustments in renally impaired patients. The GFR is provided as additional pertinent clinical information. GFR is reported in mL/min/1.73 sq m. Calculation based on the Chronic Kidney Disease Epidemiology Collaboration (CKD- EPI) equation refit without adjustment for race. GFR, EST. >60 >=60 024 11:57 AM [facility] GFR, EST. NONAFRICAN 56(L) >=60 09/17/2023 11:57 AM [facility] Blood Venipuncture / Unknown 09/17/2023 11:20 AM [facility] 09/17/2023 11:29 AM [facility] us Erick Carlisle MD CHEMISTRY ORDERABLES F inal Result Performing Organization Address [facility] Co de Phone Number [facility] [place] [address] * EXTERNAL PODIATRY REFERRAL (10/19/2021 12:00 AM [facility]) 10/19/2021 us Brooks Vazquez ENDODONTIC ASSISTANT, PAPER CONE MAKER OUTPT REFERRALS EXT/INT Final Result Performing Organization Address [facility] Co de Phone Number SCAN * (ABNORMAL) HEMOGLOBIN A1C W/ ESTIMATED GLUCOSE (08/30/2020 11:44 AM HORSE RANCHER) Pathologist [facility] HGB-A1C 6.7(H) 4.0 - 6.0 % 08/30/2020 12:16 PM [facility] Est Average Glucose 145.6 mg/dL 08/30/2020 12:16 PM [facility] Blood Venipuncture / Unknown 08/30/2020 11:44 AM [facility] RAN[facility]ER 08/30/2020 12:02 PM [facility] Narrative [facility] - 08/30/2020 12:16 PM [facility] HEMOGLOBIN A1C: DIABETIC PATIENTS: WELL-CONTROLLED: 6.2 - 7.0 INTERMEDIATE WELL-CONTROLLED: 7.0 - 9.0 POORLY-CONTROLLED: >9.0 us Tristan Mills MD CHEMISTRY ORDERABLES Final Result Performing Organization Address [facility] Co de Phone Number [facility] [address] [place] [address] * HEPATITIS PANEL ACUTE (AHP) (09/23/2017 11:52 AM HORSE RANCHER) Pathologist [facility] HEPATITIS A IGM ANTIBODY NON DETECTED NON DETECTED 09/23/2017 11:29 PM [facility] Comment: IGM Antibodies to HAV not detected. Does not exclude early acute or recovered HAV infection. HEP B CORE AB (IGM) NON DETECTED NON DETECTED 09/23/2017 11:29 PM [facility] Comment: IGM anti-HBC not detected. Does not exclude the possibility of exposure to or infection with HBV. HEPATITIS B SURFACE ANTIGEN NON DETECTED NON DETECTED 09/23/2017 11:29 PM [facility] RAN[facility] Comment: A nonreactive test result does not exclude the possibility of exposure to or infection with Hepatitis B virus. A nonreactive test result in individuals with prior exposure to hepatitis B may be due to antigen levels below the detection limit of this assay or lack of antigen reactivity to the antibodies in this assay. hepatitis C antibody 0.11 <1 S/CO 09/23/2017 11:29 PM [facility] Comment: Signal/Cutoff ratio < 0.79 is Nondetected Signal/Cutoff ratio 0.80-0.99 is Grayzone Signal/Cutoff ratio > 0.99 is Detected Supplemental assays are recommended if signal/cutoff ratio is >/=1.00. Signal/cutoff ratio result >/= 5.00 is 97% predictive of positivity for recombinant immunoblot assay (RIBA) and will be reported to the [place] Department of Public Health as required. Blood specimen (specimen) Venipuncture / Unknown 09/23/2017 11:52 AM [facility]ORSE RAN[facility]ER 09/23/2017 2:41 PM HORSE RANCHER us Tristan Mills MD HEMATOLOGY ORDERABLES Final Result [facility] [address] [place] [address], from Last 3 Months or Most Recently Relevant to Health Maintenance Insurance MEDICAID [id number] Advance Directives Documents on File Type Date Recorded Patient Application Assistant Expl anation Living Will 09/22/2018 8:51 AM Living Will Care Teams Plastic Molder Relationship Specialty Start Date End Date Tristan Mills MD [address] [facility] [address] [place] [address] PCP - General Family Medicine 09/01/17 Laura Michaels MD [address] [facility] [address] [place] [address] Consulting Physician Urology 09/25/18 Cristofer Wilson MD [address] [facility] [address] [place] [address] General Surgery 09/25/18 Esteban Carpenter MD [address] [facility] [address] [place] [address] Consulting Physician Colon and Rectal Surgery 10/06/23 Mejia Ayon MD [address]2 [facility] [address] [place] [id number] Consulting Physician Urology 02/29/24
--- OUTSIDE RECORDS SUMMARY | 2024-10-12 14:36 | XMS_ITS | Encounter Summary ---
Author Organization [facility] Address [address] [place] [address] [address] Phone Care Team Providers Care Crew Clerk Name Role Phone Tristan Mills MD Primary Care Provider [phone] Laura Michaels MD Unavailable [phone] Cristofer Wilson MD Unavailable [phone] Esteban Carpenter MD Unavailable Mejia Ayon MD Unavailable Reason for Visit * Reason Comments Medication Refill Encounter Details Date Type Department Care Team (Late st Contact Info) Description 12/26/2022 Refill [facility] [address] [place] [phone] Tristan Mills MD [address] [address] Medication Refill Social History Tobacco Use Types [...] suspected to have Coronavirus/COVID-19? No / Unsure 12/29/2022 5:23 PM CDT documented as of this encounter Miscellaneous Notes * Telephone Encounter - Magda Bryson RN - 12/27/2022 11:13 AM CDT Medication failed the protocol, provider to review and approve the medication order if appropriate. Requested Prescriptions Pending Prescriptions Disp Refills EPINEPHrine (EPIPEN) 0.3 MG/0.3ML Solution Auto-injector [Pharmacy Med Name: EPINEPHRINE 0.3 MG AUTO-INJECT] 2 mL 1 Sig: INJECT 0.3 ML INTRAMUSCULARLY ONCE NEEDED FOR ANAPHYLAXIS Not Delegated - Anaphylaxis Therapy Agents Protocol Failed - 12/26/2022 2:33 PM Failed - This refill cannot be delegated Passed - Visit with relevant provider in past 12 months or upcoming 90 days Recent Visits Date Type Provider Dept 10/05/22 Office Visit Tristan Mills MD [facility] 07/05/22 Office Visit Brooks Vazquez APRN, [facility] 03/19/22 Office Visit Tristan Mills MD [facility] Showing recent visits within past 365 days and meeting all other requirements Future Appointments Date Type Provider Dept 01/05/23 Appointment Tristan Mills MD [facility] Showing [...] 09/28/2023 09/28/2023 10/08/2023 12:1 6 AM SUPERVISOR TWISTING DEPARTMENT Assessment Noted Time PHQ-9 Depression Total Score: 0 12/08/19 22 11:00 AM CDT documented as of this encounter Care Teams Crew Clerk Relationship Specialty Start Date End Date Tristan Mills MD [facility] [address] [place] [address] PCP - General Family Medicine 09/01/17 Laura Michaels MD [facility] [address] [place] [address] Consulting Physician Urology 09/25/18 Cristofer Wilson MD [facility] [address] [place] [address] General Surgery 09/25/18 Esteban Carpenter MD [facility] [address] [place] [address] Consulting Physician Colon and Rectal Surgery 10/06/23 Mejia Ayon MD [address]2 [facility] [address] [place] [address] Consulting Physician Urology 02/29/24 documented as of this encounter
--- OUTSIDE RECORDS SUMMARY | 2024-10-12 14:36 | XMS_ITS | Clinical Summary ---
Author Organization [facility] Address [address] [facility] [place] [address] Care Team Providers Care Engineering Design Manager Name Role Phone Tristan Mills MD Primary Care Provider [phone] Source Comments [facility],non-owned Affiliates and Associated Physician Practices is amultiple site organization consisting of ambulatory clinics and hospital sitesin [place], [place], [place] and [place]. This disclosure is being madepursuant to the Care Everywhere program and may not contain all information available regarding this patient. Last updated 18.[facility] Allergies Active Allergy Reactions Criticality Noted Date Comments Bee Venom Anaphylaxis High 10/07/2017 Chocolate Flavor Urticaria Medium 01/17/2020 Reaction: Hives, Latex Urticaria,Itching Medium 09/22/2018 Atenolol Itching High 05/10/2019 Medications * Be aware that medications may not be up to date on this document. Alwaysverify current medications with the patient. Medication Sig Dispensed Refills Start Date End Date Status cholecalciferol (D--MARY) 10 MCG (400 UNITS)/ML solution Take 25 mg by mouth once daily Active ascorbic acid (VITAMIN C) 500 MG tablet Take 500 mg by mouth every 7 days Active Black Cohosh 540 MG Take 540 mg by mouth once daily Active blood glucose monitoring device (ONE TOUCH ULTRA) device Diagnosis: Diabetes type 2 Blood testing frequency: once a day Dx: E11.9 05/28/2019 Active Blood Glucose Monitoring Suppl ([employer] VERIO) w/Device KIT USE TO TEST ONCE DAILY 0 05/30/2019 Active busPIRone (BUSPAR) 15 MG tablet Take 15 mg by mouth 2 times daily 01/09/2019 Active busPIRone (BUSPAR) 15 MG tablet Take 15 mg by mouth 2 times daily 3 07/04/2019 Active carvedilol (COREG) 3.125 MG tablet Take 3.125 mg by mouth 2 times daily 09/07/2018 Active carvedilol (COREG) 3.125 MG tablet Take 3.125 mg by mouth 2 times daily 3 06/30/2019 Active cephalexin (KEFLEX) 250 MG capsule TAKE 1 CAPSULE BY MOUTH 4 TIMES DAILY FOR 10 DAYS. 0 09/25/2018 Active Cyanocobalamin (B-12) 1000 MCG Take 1,000 mcg by mouth 03/12/2018 Active cyclobenzaprine (FLEXERIL) 5 MG tablet TAKE 1 TABLET BY MOUTH EVERY DAY 11/02/2018 Active dicyclomine (BENTYL) 20 MG tablet TAKE 1 TAB BY MOUTH EVERY 6 HOURS NEEDED (ABDOMINAL PAIN). 0 05/28/2019 Active EPINEPHrine (EPIPEN) 0.3 MG/0.3ML auto-injector pen Inject 0.3 mg into muscle 11/29/2018 Active escitalopram (LEXAPRO) 20 MG tablet Take 20 mg by mouth once daily 01/01/2019 Active fluticasone propionate (FLONASE) 50 MCG/ACT nasal spray SPRAY 2 SPRAYS INTO EACH NOSTRIL EVERY DAY DIRECTED 03/19/2019 Active glimepiride (AMARYL) 2 MG tablet TAKE 1 TABLET BY MOUTH EVERY DAY IN THE MORNING 3 01/15/2019 Active ONETOUCH VERIO test strip once daily 3 06/06/2019 Active blood glucose test strip Test once daily E11.9 04/20/2018 Active ibuprofen (MOTRIN) 800 MG tablet Take 800 mg by mouth every 6 hours as needed 2 06/20/2019 Active FREESTYLE LANCETS MISC Use one lancet daily. DX E11.9 02/15/2018 Active lisinopril (PRINIVIL; ZESTRIL) 40 MG tablet Take 40 mg by mouth 2 times daily 2 06/20/2019 Active metFORMIN (GLUCOPHAGE) 1000 MG tablet 07/11/2019 Active Active Problems Problem Noted Date Diagnosed Date Plantar fasciitis, bilateral 07/13/2019 Social History Tobacco Use Types Packs/Day Years Used Date Smoking Tobacco: Never Smokeless Tobacco: Never Alcohol Use Standard Drinks/Week Comments Yes 0 (1 standard drink = 0.6 oz pur e alcohol) AUDIT-C Answer Date Recorded Frequency of Alcohol Consumption Monthly or less 05/10/2019 Average Number of Drinks Not on file 019 Frequency of Binge Drinking Not on file 04/22 Sex and Gender Information Value Date Recorded Sex Assigned at Not on file Gender Identity Not on file Sexual Orientation Not on file Last Filed Vital Signs Vital Sign Reading Time Taken Comments Blood Pressure 95/76 11/09/2019 1:00 PM CDT Pulse 74 11/09/2019 1:00 PM CDT Temperature 36.6 C (97.9 F) 11/09/2019 1:00 PM CDT Respiratory Rate 20 11/09/2019 1:00 PM CDT Oxygen Saturation 92% 11/09/2019 1:00 PM CDT Inhaled Oxygen Concentration - - Weight 69.9 kg (154 lb) 01/17/2020 9:41 AM CDT Height 149.9 cm (4' 11 ) 01/17/2020 9:41 AM CDT Body Mass Index 31.1 01/17/2020 9:41 AM CDT Plan of Treatment Health Maintenance Due Date Last Done Comments COLOGUARD (AGES 45-75) - COLON CA SCREENING 1967 COLON MONITORING 1967 COLONOSCOPY - COLON CA SCREENING 1967 CT COLONOGRAPHY - COLON CA SCREENING 1967 Colorectal Cancer Screening 1967 FIT - COLON CA SCREENING 1967 FLEX SIG - COLON CA SCREENING 1967 LIPID TESTING 1967 PAP SMEAR 1967 HIV SCREENING 1982 HEPATITIS C SCREENING 02/27/1985 DTAP/TDAP/TD VACCINES (1 - Tdap) 1986 HEPATITIS B VACCINE (1 of 3 - 19+ 3-dose series) 1986 PNEUMOCOCCAL VACCINE 50+ (1 of 1 - PCV) 2017 ZOSTER VACCINE (1 of 2) 2017 SCREENING FOR DIABETES 05/10/2019 MAMMOGRAM 10/30/2020 10/30/2018 COVID-19 VACCINE (1 - 2023- season) 2024 INFLUENZA VACCINE (#1) 2024 9, 07/26/2018, 06/23/2017, Additional history exists DEPRESSION SCREENING 08/22/2024 HIB VACCINE Aged Out No longer eligi ble based on patient's age to complete this topic HPV VACCINE Aged Out No longer eligi ble based on patient's age to complete this topic MENINGOCOCCAL (Group B) VACCINE Aged Out No longer eligible based on patient's age to complete this topic MENINGOCOCCAL VACCINE Aged Out No jarocho jhonny eligible based on patient's age to complete this topic PNEUMOCOCCAL VACCINE Aged Out No long er eligible based on patient's age to complete this topic Care Teams Engineering Design Manager Relationship Specialty Start Date End Date Tristan Mills MD PCP - General 05/10/19
--- OUTSIDE RECORDS SUMMARY | 2024-10-12 14:36 | XMS_ITS | Encounter Summary ---
Author Organization [facility] Address [address] [place] [address] Phone Care Team Providers Care Mule Tender Name Role Phone Tristan Mills MD Primary Care Provider [phone] Laura Michaels MD Unavailable [phone] Cristofer Wilson MD Unavailable [phone] Esteban Carpenter MD Unavailable Mejia Ayon MD Unavailable Reason for Visit * Reason Comments Medication Refill Encounter Details Date Type Department Care Team (Late st Contact Info) Description 01/03/2022 Refill [facility] [address]2 [place] [phone] Tristan Mills MD [address] [address] Medication Refill Social History Tobacco Use Types [...] suspected to have Coronavirus/COVID-19? No / Unsure 12/07/2021 10:46 AM CDT documented as of this encounter Miscellaneous Notes * Telephone Encounter - Anayeli Gamboa RN - 01/04/2022 10:20 AM CDT Medication failed the protocol, provider to review and approve the medication order if appropriate. Requested Prescriptions Pending Prescriptions Disp Refills EPINEPHrine (EPIPEN) 0.3 MG/0.3ML Solution Auto-injector [Pharmacy Med Name: EPINEPHRINE 0.3 MG AUTO-INJECT] Sig: INJECT 0.3 ML INTRAMUSCULARLY ONCE NEEDED FOR ANAPHYLAXIS Not Delegated - Anaphylaxis Therapy Agents Protocol Failed - 01/03/2022 10:17 PM Failed - This refill cannot be delegated Passed - Visit with relevant provider in past 12 months or upcoming 90 days Recent Visits Date Type Provider Dept 12/07/21 Office Visit Tristan Mills MD [facility] 07/24/21 Office Visit Brooks Vazquez APRN, NILES [facility] [place] Showing recent visits within past 365 days and meeting all other requirements Future Appointments Date Type Provider Dept 03/19/22 Appointment Tristan Mills MD [facility] Showing future appointments within next 90 days and meeting all other requirements cyclobenzaprine (FLEXERIL) 5 MG Tablet [Pharmacy Med Name: CYCLOBENZAPRINE 5 MG TABLET] 90 Tablet 1 Sig: TAKE 1 TAB BY MOUTH 3 TIMES DAILY NEEDED FOR MUSCLE SPASMS. Not Delegated - Muscle Relaxants Protocol Failed - 01/03/2022 10:17 PM Failed - This refill cannot be delegated Passed - Visit with relevant provider in past 12 months or upcoming 90 days Recent Visits Date Type Provider Dept 12/07/21 Office Visit Tristan Mills MD [facility] 07/24/21 Office Visit Brooks Vazquez APRN, NILES [facility] [place] Showing recent visits within past 365 days and meeting all other requirements Future Appointments Date Type Provider Dept 03/19/22 Appointment Tristan Mills MD [facility] [place] Showing future appointments within next 90 [...] 19 07/28/2022 07/28/2022 08/07/2022 12:1 6 AM OCCUPATIONAL HEALTH MANAGER Influenza 07/28/2022 07/28/2022 08/04/2022 12:1 6 AM OCCUPATIONAL HEALTH MANAGER Respiratory Rule Out - RPA 06/23/2023 06/23/2023 1 08/23/2022 5:23 PM CDT COVID - 19 09/28/2023 09/28/2023 10/08/2023 12:1 6 AM OCCUPATIONAL HEALTH MANAGER Assessment Noted Time PHQ-9 Depression Total Score: 0 12/08/19 11:00 AM CDT documented as of this encounter Care Teams Mule Tender Relationship Specialty Start Date End Date Tristan Mills MD [address] [address] PCP - General Family Medicine 09/01/17 Laura Michaels MD #[address] [address] Consulting Physician Urology 09/25/18 Cristofer Wilson MD #[address] [address] General Surgery 09/25/18 Esteban Carpenter MD [address] [place] [address] Consulting Physician Colon and Rectal Surgery 10/06/23 Mejia Ayon MD #[address] [facility] [address] [facility] [address] [place] [address] Consulting Physician Urology 02/29/24 documented as of this encounter
--- OUTSIDE RECORDS SUMMARY | 2024-10-12 14:36 | XMS_ITS | Encounter Summary ---
Author Organization [facility] Address [address] [place] [address] Phone Care Team Providers Care Veterinary Poultry Inspector Name Role Phone Tristan Mills MD Primary Care Provider [phone] Laura Michaels MD Unavailable [phone] Cristofer Wilson MD Unavailable [phone] Esteban Carpenter MD Unavailable Mejia Ayon MD Unavailable Reason for Visit * Reason Comments Medication Refill Encounter Details Date Type Department Care Team (Late st Contact Info) Description 08/07/2020 Refill [facility] - Family Medicine [facility] [address] [place] [phone] Brooks Vazquez, STRUCTURES ASSEMBLER, BARREL LATHE OPERATOR OUTSIDE [address] [address] Medication Refill Social History Tobacco Use Types [...] have Coronavirus / COVID-19? No / Unsure 08/02/2020 10:49 AM ASSISTANT MERCHANDISER documented as of this encounter Miscellaneous Notes * Telephone Encounter - Magda Bryson RN - 08/07/2020 11:40 AM CST Medication failed the protocol, provider to review and approve the medication order if appropriate. Requested Prescriptions Pending Prescriptions Disp Refills cyclobenzaprine (FLEXERIL) 5 MG Tablet [Pharmacy Med Name: CYCLOBENZAPRINE 5 MG TABLET] 45 Tab 0 Sig: Take 1 Tab by mouth 3 times daily as needed for Muscle spasms. Not Delegated - Analgesics: Muscle Relaxants Failed - 08/07/2020 10:09 AM Failed - This refill cannot be delegated Passed - Valid encounter within last 6 months Past Office Visits Recent Outpatient Visits 1 week ago Chronic right shoulder pain [facility] - Brooks Raphale APN, CNP 1 month ago Left inguinal hernia [facility] - Tristan Luciano MD 2 months ago Essential hypertension [facility] - Brooks Raphael APN, CNP 2 months ago Nephrolithiasis [facility] Brooks Raphael APN, CNP 5 months ago Anxiety [facility] Tristan Luciano MD Upcoming Appointments Future Appointments In 3 weeks Tristan Mills MD [facility] [place] [facility] SHIPWRIGHT SUPERVISOR - Recent and Past Visits Recent Visits Date Type Provider Dept 07/25/20 Office Visit Brooks Vazquez APN, CNP [facility] 06/25/20 Office Visit Tristan Mills MD [facility] 06/02/20 Office Visit Brooks Vazquez APN, CNP [facility] 05/21/20 Office Visit Brooks Vazquez APN, CNP [facility] [place] 02/29/20 Office Visit Tristan Mills MD [facility] 10/30/19 Office Visit Tristan Mills MD [facility] 07/26/19 Office Visit Tristan Mills MD [facility] 05/28/19 Office Visit Magaly Casey, PAC [facility] [place] Showing recent visits within past 460 days with a meds authorizing provider and meeting all other requirements Future Appointments Date Type Provider Dept 09/02/20 Appointment Tristan Mills MD [facility] Showing future appointments within next 90 days with a meds authorizing provider and meeting all other requirements STANT MERCHANDISER documented in this encounter Plan of Treatment Not on file documented as of this encounter Visit Diagnoses Not on filedocumented in this encounter Additional Health Concerns Infection Onset Date Last Indicated Resolved Time COVID - 19 03/06/2021 03/06/2021 03/07/2021 8:43 AM CDT COVID - 19 08/13/2021 08/17/2021 09/06/2021 12:1 6 AM ASSISTANT MERCHANDISER COVID - 19 Confirmed 08/17/2021 08/17/2021 022 12:16 AM ASSISTANT MERCHANDISER COVID - 19 04/11/2022 04/11/2022 04/21/2022 12:1 6 AM CDT COVID - 19 07/28/2022 07/28/2022 08/07/2022 12:1 6 AM ASSISTANT MERCHANDISER Influenza 07/28/2022 07/28/2022 08/04/2022 12:1 6 AM ASSISTANT MERCHANDISER Respiratory Rule Out - RPA 06/23/2023 06/23/2023 1 08/23/2022 5:23 PM CDT COVID - 19 09/28/2023 09/28/2023 10/08/2023 12:1 6 AM ASSISTANT MERCHANDISER Assessment Noted Time PHQ-9 Depression Total Score: 0 06/25/20 20 4:52 PM ASSISTANT MERCHANDISER documented as of this encounter Care Teams Veterinary Poultry Inspector Relationship Specialty Start Date End Date Tristan Mills MD [address]2 [facility] [address] [place] [address] PCP - General Family Medicine 09/01/17 Laura Michaels MD #2 [facility] [address] [place] [address] Consulting Physician Urology 09/25/18 Cristofer Wilson MD #2 [facility] [address] [place] [address] General Surgery 09/25/18 Esteban Carpenter MD #2 [facility] [address] [place] [address] Consulting Physician Colon and Rectal Surgery 10/06/23 Mejia Ayon MD #2 [facility] [address] [place] [address] Consulting Physician Urology 02/29/24 documented as of this encounter
--- OUTSIDE RECORDS SUMMARY | 2024-10-12 14:36 | XMS_ITS | Encounter Summary ---
Author Organization [facility] Address [address] [place] [address] [address] Phone Care Team Providers Care Air Moving Technician Name Role Phone Tristan Mills MD Primary Care Provider [phone] Laura Michaels MD Unavailable [phone] Cristofer Wilson MD Unavailable [phone] Esteban Carpenter MD Unavailable Mejia Ayon MD Unavailable Reason for Visit * Reason Comments Medication Refill Encounter Details Date Type Department Care Team (Late st Contact Info) Description 08/24/2020 Refill [facility] - Family Medicine - [place] [address] [place] [phone] Brooks Vazquez, SVP OPERATIONS, FOREIGN LANGUAGES DEPARTMENT CHAIR #[address] [address] Medication Refill Social History Tobacco Use Types [...] COVID-19? No / Unsure 08/02/2020 10:49 AM SHEETER WAXER OPERATOR documented as of this encounter Miscellaneous Notes * Telephone Encounter - Magda Bryson RN - 08/25/2020 11:23 AM CST Medication failed the protocol, provider to review and approve the medication order if appropriate. Requested Prescriptions Pending Prescriptions Disp Refills cyclobenzaprine (FLEXERIL) 5 MG Tablet [Pharmacy Med Name: CYCLOBENZAPRINE 5 MG TABLET] 45 Tab 0 Sig: TAKE 1 TAB BY MOUTH 3 TIMES DAILY NEEDED FOR MUSCLE SPASMS. Not Delegated - Analgesics: Muscle Relaxants Failed - 08/24/2020 12:39 PM Failed - This refill cannot be delegated Passed - Valid encounter within last 6 months Past Office Visits Recent Outpatient Visits 1 month ago Chronic right shoulder pain [facility] - Brooks Raphael APN, CNP 2 months ago Left inguinal hernia [facility] - Tristan Luciano MD 2 months ago Essential hypertension [facility] Brooks Raphael APN, CNP 3 months ago Nephrolithiasis [facility] Raphael APN, CNP 5 months ago [facility] Upcoming Appointments Future Appointments In 1 week Tristan Mills MD [facility] [place] [facility] PUBLIC HEALTH ADMINISTRATOR - Recent and Past Visits Recent Visits Date Type Provider Dept 07/25/20 Office Visit Brooks Vazquez APN, CNP [facility] 06/25/20 Office Visit Tristan Mills MD [facility] 06/02/20 Office Visit Brooks Vazquez APN, CNP [facility] [place] 05/21/20 Office Visit Brooks Vazquez APN, CNP [facility] [place] 02/29/20 Office Visit Tristan Mills MD [facility] 10/30/19 Office Visit Tristan Mills MD [facility] 07/26/19 Office Visit Tristan Mills MD [facility] 05/28/19 Office Visit Magaly Casey, PAC [facility] [place] Showing recent visits within past 460 days with a meds authorizing provider and meeting all other requirements Future Appointments Date Type Provider Dept 09/02/20 Appointment Tristan Mills MD [facility] Showing future appointments within next 90 days with a meds authorizing provider and meeting all other requirements TER WAXER OPERATOR documented in this encounter Plan of Treatment Not on file documented as of this encounter Visit Diagnoses Not on filedocumented in this encounter Additional Health Concerns Infection Onset Date Last Indicated Resolved Time COVID - 19 03/06/2021 03/06/2021 03/07/2021 8:43 AM CDT COVID - 19 08/13/2021 08/17/2021 09/06/2021 12:1 6 AM SHEETER WAXER OPERATOR COVID - 19 Confirmed 08/17/2021 08/17/2021 022 12:16 AM SHEETER WAXER OPERATOR COVID - 19 04/11/2022 04/11/2022 04/21/2022 12:1 6 AM CDT COVID - 19 07/28/2022 07/28/2022 08/07/2022 12:1 6 AM SHEETER WAXER OPERATOR Influenza 07/28/2022 07/28/2022 08/04/2022 12:1 6 AM SHEETER WAXER OPERATOR Respiratory Rule Out - RPA 06/23/2023 06/23/2023 1 08/23/2022 5:23 PM CDT COVID - 19 09/28/2023 09/28/2023 10/08/2023 12:1 6 AM SHEETER WAXER OPERATOR Assessment Noted Time PHQ-9 Depression Total Score: 0 06/25/20 20 4:52 PM SHEETER WAXER OPERATOR documented as of this encounter Care Teams Air Moving Technician Relationship Specialty Start Date End Date Tristan Mills MD #2 [facility] [address] [place] [address] PCP - General Family Medicine 09/01/17 Laura Michaels MD #2 [facility] [address] [place] [address] Consulting Physician Urology 09/25/18 Cristofer Wilson MD #2 [facility] [address] [place] [address] General Surgery 09/25/18 Esteban Carpenter MD #2 [facility] [address] [place] [address] Consulting Physician Colon and Rectal Surgery 10/06/23 Mejia Ayon MD #[address] [facility] [address] [place] [address] Consulting Physician Urology 02/29/24 documented as of this encounter
--- OUTSIDE RECORDS SUMMARY | 2024-10-12 14:36 | XMS_ITS | Encounter Summary ---
Author Organization [facility] Address [address] [place] [address] [address] Phone Care Team Providers Care Band Instrument Maker Name Role Phone Tristan Mills MD Primary Care Provider [phone] Laura Michaels MD Unavailable [phone] Cristofer Wilson MD Unavailable [phone] Esteban Carpenter MD Unavailable Meija Ayon MD Unavailable Reason for Visit * Reason Comments Medication Refill Encounter Details Date Type Department Care Team (Late st Contact Info) Description 10/23/2022 Refill [facility] #2 [place] [phone] Tristan Mills MD #[address] [address] Medication Refill Social History Tobacco Use Types [...] suspected to have Coronavirus/COVID-19? No / Unsure 10/05/2022 2:48 PM CLOCK MAKER documented as of this encounter Miscellaneous Notes * Telephone Encounter - Annabel Larose RN - 10/25/2022 9:32 AM CLOCK MAKER PDMP 09/23/22 #90 Medication failed the protocol, provider to review and approve the medication order if appropriate. Requested Prescriptions Pending Prescriptions Disp Refills cyclobenzaprine (FLEXERIL) 5 MG Tablet [Pharmacy Med Name: CYCLOBENZAPRINE 5 MG TABLET] 90 Tablet 1 Sig: TAKE 1 TAB BY MOUTH 3 TIMES DAILY NEEDED FOR MUSCLE SPASMS. Not Delegated - Muscle Relaxants Protocol Failed - 10/23/2022 8:03 PM Failed - This refill cannot be delegated Passed - Visit with relevant provider in past 12 months or upcoming 90 days Recent Visits Date Type Provider Dept 10/05/22 Office Visit Tristan Mills MD [facility] 07/05/22 Office Visit Brooks Vazquez APRN, NILES [facility] 03/19/22 Office Visit Tristan Mills MD [facility] 12/07/21 Office Visit Tristan Mills MD [facility] Showing recent visits within past 365 days and meeting all other requirements Future Appointments Date Type Provider Dept 01/05/23 Appointment Tristan Mills MD [facility] Showing future appointments within next 90 days and meeting all other requirements K MAKER documented in this encounter Plan of Treatment Not on file documented as of this encounter Visit Diagnoses Not on filedocumented in this encounter Additional Health Concerns Infection Onset Date Last Indicated Resolved Time Respiratory Rule Out - RPA 06/23/2023 06/23/2023 1 08/23/2022 5:23 PM CDT COVID - 19 09/28/2023 09/28/2023 10/08/2023 12:1 6 AM CLOCK MAKER Assessment Noted Time PHQ-9 Depression Total Score: 0 12/08/19 22 11:00 AM CDT documented as of this encounter Care Teams Band Instrument Maker Relationship Specialty Start Date End Date Tristan Mills MD #2 [facility] [address] [place] [address] PCP - General Family Medicine 09/01/17 Laura Michaels MD #2 [facility] [address] [place] [address] Consulting Physician Urology 09/25/18 Cristofer Wilson MD #2 [facility] [address] [place] [address] General Surgery 09/25/18 Esteban Carpenter MD #2 [facility] [address] [place] [address] Consulting Physician Colon and Rectal Surgery 10/06/23 Mejia Ayon MD #2 [facility] [address] [place] [address] Consulting Physician Urology 02/29/24 documented as of this encounter
--- OUTSIDE RECORDS SUMMARY | 2024-10-12 14:36 | XMS_ITS | Encounter Summary ---
Author Organization [facility] Address [address] [place] [address] Phone Care Team Providers Care Resolution Specialist Name Role Phone Tristan Mills MD Primary Care Provider [phone] Laura Michaels MD Unavailable [phone] Cristofer Wilson MD Unavailable [phone] Esteban Carpenter MD Unavailable Mejia Ayon MD Unavailable Reason for Visit * Reason Comments Medication Refill Encounter Details Date Type Department Care Team (Late st Contact Info) Description 02/08/2022 Refill [facility] [address] [place] [id number] Tristan Mills MD [address] [address] Medication Refill Social History Tobacco Use Types [...] Telephone Encounter - Anayeli Gamboa RN - 02/09/2022 8:21 AM CDT Medication failed the protocol, provider to review and approve the medication order if appropriate. Requested Prescriptions Pending Prescriptions Disp Refills cyclobenzaprine (FLEXERIL) 5 MG Tablet [Pharmacy Med Name: CYCLOBENZAPRINE 5 MG TABLET] 90 Tablet 1 Sig: TAKE 1 TAB BY MOUTH 3 TIMES DAILY NEEDED FOR MUSCLE SPASMS. Not Delegated - Muscle Relaxants Protocol Failed - 02/08/2022 11:52 AM Failed - This refill cannot be delegated Passed - Visit with relevant provider in past 12 months or upcoming 90 days Recent Visits Date Type Provider Dept 12/07/21 Office Visit Tristan Mills MD [facility] 07/24/21 Office Visit Brooks Vazquez APRN, SALES ACCOUNT DIRECTOR [facility] Showing recent visits within past 365 days and meeting all other requirements Future Appointments Date Type Provider Dept 03/19/22 Appointment Tristan Mills MD [facility] Showing [...] 19 07/28/2022 07/28/2022 08/07/2022 12:1 6 AM MATERIAL DAMAGE ADJUSTER Influenza 07/28/2022 07/28/2022 08/04/2022 12:1 6 AM MATERIAL DAMAGE ADJUSTER Respiratory Rule Out - RPA 06/23/2023 06/23/2023 1 08/23/2022 5:23 PM CDT COVID - 19 09/28/2023 09/28/2023 10/08/2023 12:1 6 AM MATERIAL DAMAGE ADJUSTER Assessment Noted Time PHQ-9 Depression Total Score: 0 12/08/19 22 11:00 AM CDT documented as of this encounter Care Teams Resolution Specialist Relationship Specialty Start Date End Date Tristan Mills MD [address] [facility] [address] [place] [address] PCP - General Family Medicine 09/01/17 Laura Michaels MD [address] [facility] [address] [place] [address] Consulting Physician Urology 09/25/18 Cristofer Wilson MD [address] [facility] [address] [place] [address] General Surgery 09/25/18 Esteban Carpenter MD [address] [facility] [address] [place] [address] Consulting Physician Colon and Rectal Surgery 10/06/23 Mejia Ayon MD #2 [facility] [address] [place] [id number] Consulting Physician Urology 02/29/24 documented as of this encounter
--- OUTSIDE RECORDS SUMMARY | 2024-10-12 14:36 | XMS_ITS | Patient Health Summary ---
Author Organization [facility] Address [address] [place] [address] Care Team Providers Care Humanities Coordinator Name Role Phone Tristan Mills MD Primary Care Provider [phone] Note from [facility],non-owned Affiliates and Associated Physician Practices is amultiple site organization consisting of ambulatory clinics and hospital sitesin [place], [place], [place] and [place]. This disclosure is being madepursuant to the Care Everywhere program and may not contain all information available regarding this patient. Last updated 18.[facility] Allergies * Bee Venom(Anaphylaxis) -High Criticality * Chocolate Flavor(Urticaria) -Medium Criticality * Latex(Urticaria,Itching) -Medium Criticality * Atenolol(Itching) -High Criticality Medications * Be aware that medications may not be up to date on this document. Alwaysverify current medications with the patient. * cholecalciferol (D--MARY) 10 MCG (400 UNITS)/ML solution Take 25 mg by mouth once daily * ascorbic acid (VITAMIN C) 500 MG tablet Take 500 mg by mouth every 7 days * Black Cohosh 540 MG Take 540 mg by mouth once daily * blood glucose monitoring device (ONE TOUCH ULTRA) device(Started 05/28/2019) Diagnosis: Diabetes type 2 Blood testing frequency: once a day Dx: E11.9 * Blood Glucose Monitoring Suppl (Cartela ABUCH VERIO) w/Device KIT(Started 05/30/2019) USE TO TEST ONCE DAILY * busPIRone (BUSPAR) 15 MG tablet(Started 01/09/2019) Take 15 mg by mouth 2 times daily * busPIRone (BUSPAR) 15 MG tablet(Started 07/04/2019) Take 15 mg by mouth 2 times daily 3 refills left * carvedilol (COREG) 3.125 MG tablet(Started 09/07/2018) Take 3.125 mg by mouth 2 times daily * carvedilol (COREG) 3.125 MG tablet(Started 06/30/2019) Take 3.125 mg by mouth 2 times daily 3 refills left * cephalexin (KEFLEX) 250 MG capsule(Started 09/25/2018) TAKE 1 CAPSULE BY MOUTH 4 TIMES DAILY FOR 10 DAYS. * Cyanocobalamin (B-12) 1000 MCG(Started 03/12/2018) Take 1,000 mcg by mouth * cyclobenzaprine (FLEXERIL) 5 MG tablet(Started 11/02/2018) TAKE 1 TABLET BY MOUTH EVERY DAY * dicyclomine (BENTYL) 20 MG tablet(Started 05/28/2019) TAKE 1 TAB BY MOUTH EVERY 6 HOURS NEEDED (ABDOMINAL PAIN). * EPINEPHrine (EPIPEN) 0.3 MG/0.3ML auto-injector pen(Started 11/29/2018) Inject 0.3 mg into muscle * escitalopram (LEXAPRO) 20 MG tablet(Started 01/01/2019) Take 20 mg by mouth once daily * fluticasone propionate (FLONASE) 50 MCG/ACT nasal spray(Started 03/19/2019) SPRAY 2 SPRAYS INTO EACH NOSTRIL EVERY DAY DIRECTED * glimepiride (AMARYL) 2 MG tablet(Started 01/15/2019) TAKE 1 TABLET BY MOUTH EVERY DAY IN THE MORNING 3 refills left * ONETOUCH VERIO test strip(Started 06/06/2019) once daily 3 refills left * blood glucose test strip(Started 04/20/2018) Test once daily E11.9 * ibuprofen (MOTRIN) 800 MG tablet(Started 06/20/2019) Take 800 mg by mouth every 6 hours as needed 2 refills left * FREESTYLE LANCETS MISC(Started 02/15/2018) Use one lancet daily. DX E11.9 * lisinopril (PRINIVIL; ZESTRIL) 40 MG tablet(Started 06/20/2019) Take 40 mg by mouth 2 times daily 2 refills left * metFORMIN (GLUCOPHAGE) 1000 MG tablet(Started 07/11/2019) Active Problems Problem Noted Date Diagnosed Date [...] Mass Index 31.1 01/17/2020 9:41 AM CDT Procedures * WY DRAIN/INJECT LARGE JOINT/BURSA(Performed 01/17/2020) Performed for Bilateral primary osteoarthritis of knee * WY DRAIN/INJECT LARGE JOINT/BURSA(Performed 01/17/2020) Performed for Bilateral primary osteoarthritis of knee * WY DRAIN/INJECT LARGE JOINT/BURSA(Performed 10/18/2019) Performed for Patellofemoral pain syndrome of right knee, Patellofemoral pain syndrome of left knee * XR ANKLE RIGHT 3VW OR MORE(Performed 07/13/2019) Performed for Right foot pain * XR ANKLE LEFT 3VW OR MORE(Performed 07/13/2019) Performed for Pain of foot, unspecified laterality * XR FOOT RIGHT 3VW OR MORE(Performed 07/13/2019) Performed for Right foot pain * XR FOOT LEFT 3VW OR MORE(Performed 07/13/2019) Performed for Pain of foot, unspecified laterality * WY DRAIN/INJECT LARGE JOINT/BURSA(Performed 05/10/2019) Performed for Bilateral primary osteoarthritis of knee * [place] DRAIN/INJECT LARGE JOINT/BURSA(Performed 05/10/2019) Performed for Bilateral primary osteoarthritis of knee * XR KNEE RIGHT 4VW OR MORE(Performed 05/10/2019) Performed for Pain in both knees, unspecified chronicity * XR KNEE LEFT 4VW OR MORE(Performed 05/10/2019) Performed for Pain in both knees, unspecified chronicity * DERMATOPATHOLOGY(Performed 03/12/2011) Results * WY DRAIN/INJECT LARGE JOINT/BURSA (01/17/2020 12:20 PM CDT) Narrative Dallas Young PA-C - 01/17/2020 12:20 PM CDT Dallas Young PA-C 01/17/2020 12:21 PM Orthopaedic Surgery Procedure Note Diagnosis: Left knee osteoarthritis Procedure: Injection of Corticosteroid into the left knee. Indications: Sujit Andrew is a 54 year old female who has left knee pain and arthritis. Procedure Details: Ms. Andrew was informed of her condition, and the potential benefits of injection of steroid. The patient was counseled as to the risks of the procedure. She was understanding and agreeable. The patient was placed into the seated position. The area was prepped with beta-dine. Utilizing the anterolateral portal, the patient's left knee was injected with 2 cc of 40 mg/ml Depomedrol and 3 cc 0.5% Ropivicaine without epinephrine into the joint. The needle was removed and the needle site dressed with a semi-sterile bandage. The patient tolerated the procedure well. Remainder of plan per note. Dallas Young PA-C 01/17/2020 12:20 PM Dallas Young PA-C PROCEDURE/MINOR S URGICAL ORDERABLES * WY DRAIN/INJECT LARGE JOINT/BURSA (01/17/2020 12:20 PM CDT) Narrative Dallas Young PA-C - 01/17/2020 12:20 PM CDT Dallas Young PA-C 01/17/2020 12:21 PM Orthopaedic Surgery Procedure Note Diagnosis: Right knee osteoarthritis Procedure: Injection of Corticosteroid into the right knee. Indications: Sujit Andrew is a 54 year old female who has right knee pain and arthritis. Procedure Details: Ms. Andrew was informed of her condition, and the potential benefits of injection of steroid. The patient was counseled as to the risks of the procedure. She was understanding and agreeable. The patient was placed into the seated position. The area was prepped with beta-dine. Utilizing the anterolateral portal, the patient's right knee was injected with 2 cc of 40 mg/ml Depomedrol and 3 cc 0.5% Ropivicaine without epinephrine into the joint. The needle was removed and the needle site dressed with a semi-sterile bandage. The patient tolerated the procedure well. Remainder of plan per note. Dallas Young PA-C 01/17/2020 12:20 PM Dlalas Young PA-C PROCEDURE/MINOR S URGICAL ORDERABLES * WY DRAIN/INJECT LARGE JOINT/BURSA (10/18/2019 2:02 PM SECURITY TRAINER) Narrative Janae Esqueda MD - 10/18/2019 2:02 PM SECURITY TRAINER Janae Esqueda MD 10/18/2019 2:57 PM Sjuit Andrew 1965 10/18/2019 Chief Complaint Patient presents with Pain Knee bilateral knee Pain Knee left : Interim History: Ms Andrew is a previous patient of Roseanna Carroll PA-C. Pt is here for possible repeat steroid injections of both knee(s). Pt reports 3 months of relief with injections. Denies any issues with injections in the past. Bilat knee injections by HR on 05/10/19. Currently, the R knee is really not bothering her much and the left knee is the worst. Endorses Patellofemoral type symptoms- anterior knee pain with kneeling, stairs, getting up from chair and prolonged sitting. Allergies, medical hx., XRs, pertinent records reviewed. Allergy atenolol. XRS show no signif OA. Discussed care home risks and complications form repeat steroid use and my intent and preference to use them prudently and only if ample benefit for the risks. Pt agrees.Also discussed other option for knee pain, including going to PT. Patient indicates a desire to proceed with L knee injection today. Exam: well appearing, pleasant, antalgic gait, no skin issues at injection sites, mild PF crepitus, pain with step up L knee. No effusion Procedure: L knee corticosteroid Injection Provider : Janae Esqueda MD Consent: Informed consent was obtained. Risks/benefits, alternatives, and complications of the procedure were discussed, including bleeding, infection, site reaction, skin changes,and possible flare. Allergies were reviewed. Questions were answered. Patient expressed understanding and gave verbal and written consent. Description of Procedure: A time out was performed. The patient was positioned, and the injection site was exposed and draped to best visualize anatomic landmarks as well as to preserve patient comfort and modesty. Anatomic landmarks were identified and marked. Next the skin overlying the area was prepped with chloro prep in the usual sterile fashion. Cold spray was applied for skin anesthesia. Using a 22g needle, I injected 1 cc of 1 % Lidocaine without epinephrine, 2cc of Ropivacaine, and 1 cc of 40 mg/mL Triamcinolone Acetonide into the L knee joint using a lateral approach . Free flow was obtained. The site was cleansed with alcohol and a sterile band-aid was placed over the injection site. Assessment and Plan: The patient was observed after the injection. The patient tolerated the procedure well. No complications. No blood loss. The patient was provided a post injection instruction sheet, therapy orders, and per patient's preference, a follow up appointment will be scheduled for possible repeat injection(s) in 3 - 4 months. Pt may cancel and reschedule if doing well prior to that visit. Patient was advised that I am leaving [facility] Orthopaedic department and will be scheduled with another appropriate provider under our nurse clinical's guidance. Janae Lee MD, MS Board Certified, Physical Medicine and Rehabilitation Board Certified, Non-operative Sports Medicine Department of Orthopaedic Surgery [facility] / [address] [place], [address] [facility] [address], [address] [place] [address] Janae Esqueda MD PROCEDURE/MINOR SURG ICAL ORDERABLES * XR ANKLE RIGHT 3VW OR MORE (07/13/2019 1:14 PM SECURITY TRAINER) Anatomical Region Laterality Modality Lower Extremity Radiographic Chantel ging 07/13/2019 1:20 PM SECURITY TRAINER Addenda Addendum by Suhas Soto MD on 07/13/2019 2:12 PM SECURITY TRAINER ORIGINAL REPORT Exam: 1.XR FOOT RIGHT 3VW 2.XR ANKLE RIGHT 3VW 3.XR ANKLE LEFT 2 view 4.XR FOOT LEFT 3VW History: Bilateral foot pain Comparison: None. Findings: Right foot: No fracture or dislocation is seen. 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 The other joint spaces are normal. Calcaneal spurs are noted. There is a 2.0 x 1.3 cm piece of heterotopic ossification adjacent to the posterior calcaneus. Smaller foci are seen at the plantar aspect. Right ankle: No lateral view is submitted. The tibiotalar joint space is normal. No displaced fracture is seen. No soft tissue swelling is noted. Left foot: No fracture or dislocation is present. The joint spaces are normal. Mild soft tissue swelling is present at the dorsal aspect of the forefoot. Left ankle: No fracture or dislocation is present. The joint spaces are normal. There are large plantar and posterior calcaneal spurs. A 2.5 x 1.3 cm piece of heterotopic ossification is seen adjacent to the posterior superior aspect of the calcaneus in the region of the distal Achilles tendon. The soft tissues are otherwise normal. 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 This report was electronically signed by SUHAS SOTO MD on 07/13/2019 1:38 PM . ADDENDUM #1 Please disregard the initial report. The corrected report is: Exam: 1.XR FOOT RIGHT 3VW 2.XR ANKLE RIGHT 3VW 3.XR ANKLE LEFT 3VW 4.XR FOOT LEFT 3VW History: Bilateral foot pain Comparison: None. Findings: Right foot: No fracture or dislocation is seen. 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 The other joint spaces are normal. No soft tissue swelling is seen. Right ankle: No fracture or dislocation is present. The joint spaces are normal. There are large plantar and posterior calcaneal spurs. A 2.0 x 1.3 cm piece of heterotopic ossification is seen adjacent to the posterior superior aspect of the calcaneus in the region of the distal Achilles tendon. Smaller foci are seen at the plantar aspect. The soft tissues are otherwise normal. Left foot: No fracture or dislocation is present. The joint spaces are normal. Mild soft tissue swelling is present at the dorsal aspect of the forefoot. Left ankle: No fracture or dislocation is present. The joint spaces are normal. There are large plantar and posterior calcaneal spurs. A 2.5 x 1.3 cm piece of heterotopic ossification is seen adjacent to the posterior superior aspect of the calcaneus in the region of the distal Achilles tendon. The soft tissues are otherwise normal. 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 This report was electronically signed by SUHAS SOTO MD on 07/13/2019 2:09 PM . 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 This report was electronically signed by SUHAS SOTO MD on 07/13/2019 1:38 PM . Narrative 07/13/2019 1:38 PM SECURITY TRAINER Exam: 1.XR FOOT RIGHT 3VW 2.XR ANKLE RIGHT 3VW 3.XR ANKLE LEFT 2 view 4.XR FOOT LEFT 3VW History: Bilateral foot pain Comparison: None. Findings: Right foot: No fracture or dislocation is seen. 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 The other joint spaces are normal. Calcaneal spurs are noted. There is a 2.0 x 1.3 cm piece of heterotopic ossification adjacent to the posterior calcaneus. Smaller foci are seen at the plantar aspect. Right ankle: No lateral view is submitted. The tibiotalar joint space is normal. No displaced fracture is seen. No soft tissue swelling is noted. Left foot: No fracture or dislocation is present. The joint spaces are normal. Mild soft tissue swelling is present at the dorsal aspect of the forefoot. Left ankle: No fracture or dislocation is present. The joint spaces are normal. There are large plantar and posterior calcaneal spurs. A 2.5 x 1.3 cm piece of heterotopic ossification is seen adjacent to the posterior superior aspect of the calcaneus in the region of the distal Achilles tendon. The soft tissues are otherwise normal. Procedure Note Suhas Soto MD - 07/13/2019 Exam: 1.XR FOOT RIGHT 3VW 2.XR ANKLE RIGHT 3VW 3.XR ANKLE LEFT 2 view 4.XR FOOT LEFT 3VW History: Bilateral foot pain Comparison: None. Findings: Right foot: No fracture or dislocation is seen. Mild osteoarthritis is present atthe first metatarsophalangeal joint. The other joint spaces are normal. Calcaneal spurs are noted. There is a 2.0 x 1.3 cm piece of heterotopic ossification adjacent to the posterior calcaneus. Smaller foci are seenat the plantar aspect. Right ankle: No lateral view is submitted. The tibiotalar joint space is normal. No displaced fracture is seen. No soft tissue swelling is noted. Left foot: No fracture or dislocation is present. The joint spaces are normal. Mild soft tissue swelling is present at the dorsal aspect of the forefoot. Left ankle: No fracture or dislocation is present. The joint spaces are normal.There are large plantar and posterior calcaneal spurs. A 2.5 x 1.3 cm piece of heterotopic ossification is seen adjacent to the posterior superioraspect of the calcaneus in the region of the distal Achilles tendon. The soft tissues are otherwise normal. 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 This report was electronically signed by SUHAS SOTO MD on 07/13/2019 1:38 PM . Crystal Chávez MD DIAGNOSTIC IMAGING O RDERABLES * XR ANKLE LEFT 3VW OR MORE (07/13/2019 1:13 PM SECURITY TRAINER) Anatomical Region Laterality Modality Lower Extremity Radiographic Chantel ging 07/13/2019 1:20 PM SECURITY TRAINER Addenda Addendum by Suhas Soto MD on 07/13/2019 2:12 PM SECURITY TRAINER ORIGINAL REPORT Exam: 1.XR FOOT RIGHT 3VW 2.XR ANKLE RIGHT 3VW 3.XR ANKLE LEFT 2 view 4.XR FOOT LEFT 3VW History: Bilateral foot pain Comparison: None. Findings: Right foot: No fracture or dislocation is seen. 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 The other joint spaces are normal. Calcaneal spurs are noted. There is a 2.0 x 1.3 cm piece of heterotopic ossification adjacent to the posterior calcaneus. Smaller foci are seen at the plantar aspect. Right ankle: No lateral view is submitted. The tibiotalar joint space is normal. No displaced fracture is seen. No soft tissue swelling is noted. Left foot: No fracture or dislocation is present. The joint spaces are normal. Mild soft tissue swelling is present at the dorsal aspect of the forefoot. Left ankle: No fracture or dislocation is present. The joint spaces are normal. There are large plantar and posterior calcaneal spurs. A 2.5 x 1.3 cm piece of heterotopic ossification is seen adjacent to the posterior superior aspect of the calcaneus in the region of the distal Achilles tendon. The soft tissues are otherwise normal. 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 This report was electronically signed by SUHAS SOTO MD on 07/13/2019 1:38 PM . ADDENDUM #1 Please disregard the initial report. The corrected report is: Exam: 1.XR FOOT RIGHT 3VW 2.XR ANKLE RIGHT 3VW 3.XR ANKLE LEFT 3VW 4.XR FOOT LEFT 3VW History: Bilateral foot pain Comparison: None. Findings: Right foot: No fracture or dislocation is seen. 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 The other joint spaces are normal. No soft tissue swelling is seen. Right ankle: No fracture or dislocation is present. The joint spaces are normal. There are large plantar and posterior calcaneal spurs. A 2.0 x 1.3 cm piece of heterotopic ossification is seen adjacent to the posterior superior aspect of the calcaneus in the region of the distal Achilles tendon. Smaller foci are seen at the plantar aspect. The soft tissues are otherwise normal. Left foot: No fracture or dislocation is present. The joint spaces are normal. Mild soft tissue swelling is present at the dorsal aspect of the forefoot. Left ankle: No fracture or dislocation is present. The joint spaces are normal. There are large plantar and posterior calcaneal spurs. A 2.5 x 1.3 cm piece of heterotopic ossification is seen adjacent to the posterior superior aspect of the calcaneus in the region of the distal Achilles tendon. The soft tissues are otherwise normal. 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 This report was electronically signed by SUHAS SOTO MD on 07/13/2019 2:09 PM . 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 This report was electronically signed by SUHAS SOTO MD on 07/13/2019 1:38 PM . Narrative 07/13/2019 1:38 PM SECURITY TRAINER Exam: 1.XR FOOT RIGHT 3VW 2.XR ANKLE RIGHT 3VW 3.XR ANKLE LEFT 2 view 4.XR FOOT LEFT 3VW History: Bilateral foot pain Comparison: None. Findings: Right foot: No fracture or dislocation is seen. 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 The other joint spaces are normal. Calcaneal spurs are noted. There is a 2.0 x 1.3 cm piece of heterotopic ossification adjacent to the posterior calcaneus. Smaller foci are seen at the plantar aspect. Right ankle: No lateral view is submitted. The tibiotalar joint space is normal. No displaced fracture is seen. No soft tissue swelling is noted. Left foot: No fracture or dislocation is present. The joint spaces are normal. Mild soft tissue swelling is present at the dorsal aspect of the forefoot. Left ankle: No fracture or dislocation is present. The joint spaces are normal. There are large plantar and posterior calcaneal spurs. A 2.5 x 1.3 cm piece of heterotopic ossification is seen adjacent to the posterior superior aspect of the calcaneus in the region of the distal Achilles tendon. The soft tissues are otherwise normal. Procedure Note Suhas Soto MD - 07/13/2019 Exam: 1.XR FOOT RIGHT 3VW 2.XR ANKLE RIGHT 3VW 3.XR ANKLE LEFT 2 view 4.XR FOOT LEFT 3VW History: Bilateral foot pain Comparison: None. Findings: Right foot: No fracture or dislocation is seen. Mild osteoarthritis is present atthe first metatarsophalangeal joint. The other joint spaces are normal. Calcaneal spurs are noted. There is a 2.0 x 1.3 cm piece of heterotopic ossification adjacent to the posterior calcaneus. Smaller foci are seenat the plantar aspect. Right ankle: No lateral view is submitted. The tibiotalar joint space is normal. No displaced fracture is seen. No soft tissue swelling is noted. Left foot: No fracture or dislocation is present. The joint spaces are normal. Mild soft tissue swelling is present at the dorsal aspect of the forefoot. Left ankle: No fracture or dislocation is present. The joint spaces are normal.There are large plantar and posterior calcaneal spurs. A 2.5 x 1.3 cm piece of heterotopic ossification is seen adjacent to the posterior superioraspect of the calcaneus in the region of the distal Achilles tendon. The soft tissues are otherwise normal. 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 This report was electronically signed by SUHAS SOTO MD on 07/13/2019 1:38 PM . Crystal Chávez MD DIAGNOSTIC IMAGING O RDERABLES * XR FOOT RIGHT 3VW OR MORE (07/13/2019 1:12 PM SECURITY TRAINER) Anatomical Region Laterality Modality Ankle / Foot Radiographic Chantel ging 07/13/2019 1:20 PM SECURITY TRAINER Addenda Addendum by Suhas Soto MD on 07/13/2019 2:12 PM SECURITY TRAINER ORIGINAL REPORT Exam: 1.XR FOOT RIGHT 3VW 2.XR ANKLE RIGHT 3VW 3.XR ANKLE LEFT 2 view 4.XR FOOT LEFT 3VW History: Bilateral foot pain Comparison: None. Findings: Right foot: No fracture or dislocation is seen. 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 The other joint spaces are normal. Calcaneal spurs are noted. There is a 2.0 x 1.3 cm piece of heterotopic ossification adjacent to the posterior calcaneus. Smaller foci are seen at the plantar aspect. Right ankle: No lateral view is submitted. The tibiotalar joint space is normal. No displaced fracture is seen. No soft tissue swelling is noted. Left foot: No fracture or dislocation is present. The joint spaces are normal. Mild soft tissue swelling is present at the dorsal aspect of the forefoot. Left ankle: No fracture or dislocation is present. The joint spaces are normal. There are large plantar and posterior calcaneal spurs. A 2.5 x 1.3 cm piece of heterotopic ossification is seen adjacent to the posterior superior aspect of the calcaneus in the region of the distal Achilles tendon. The soft tissues are otherwise normal. 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 This report was electronically signed by SUHAS SOTO MD on 07/13/2019 1:38 PM . ADDENDUM #1 Please disregard the initial report. The corrected report is: Exam: 1.XR FOOT RIGHT 3VW 2.XR ANKLE RIGHT 3VW 3.XR ANKLE LEFT 3VW 4.XR FOOT LEFT 3VW History: Bilateral foot pain Comparison: None. Findings: Right foot: No fracture or dislocation is seen. 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 The other joint spaces are normal. No soft tissue swelling is seen. Right ankle: No fracture or dislocation is present. The joint spaces are normal. There are large plantar and posterior calcaneal spurs. A 2.0 x 1.3 cm piece of heterotopic ossification is seen adjacent to the posterior superior aspect of the calcaneus in the region of the distal Achilles tendon. Smaller foci are seen at the plantar aspect. The soft tissues are otherwise normal. Left foot: No fracture or dislocation is present. The joint spaces are normal. Mild soft tissue swelling is present at the dorsal aspect of the forefoot. Left ankle: No fracture or dislocation is present. The joint spaces are normal. There are large plantar and posterior calcaneal spurs. A 2.5 x 1.3 cm piece of heterotopic ossification is seen adjacent to the posterior superior aspect of the calcaneus in the region of the distal Achilles tendon. The soft tissues are otherwise normal. 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 This report was electronically signed by SUHAS SOTO MD on 07/13/2019 2:09 PM . 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 This report was electronically signed by SUHAS SOTO MD on 07/13/2019 1:38 PM . Narrative 07/13/2019 1:38 PM SECURITY TRAINER Exam: 1.XR FOOT RIGHT 3VW 2.XR ANKLE RIGHT 3VW 3.XR ANKLE LEFT 2 view 4.XR FOOT LEFT 3VW History: Bilateral foot pain Comparison: None. Findings: Right foot: No fracture or dislocation is seen. 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 The other joint spaces are normal. Calcaneal spurs are noted. There is a 2.0 x 1.3 cm piece of heterotopic ossification adjacent to the posterior calcaneus. Smaller foci are seen at the plantar aspect. Right ankle: No lateral view is submitted. The tibiotalar joint space is normal. No displaced fracture is seen. No soft tissue swelling is noted. Left foot: No fracture or dislocation is present. The joint spaces are normal. Mild soft tissue swelling is present at the dorsal aspect of the forefoot. Left ankle: No fracture or dislocation is present. The joint spaces are normal. There are large plantar and posterior calcaneal spurs. A 2.5 x 1.3 cm piece of heterotopic ossification is seen adjacent to the posterior superior aspect of the calcaneus in the region of the distal Achilles tendon. The soft tissues are otherwise normal. Procedure Note Suhas Soto MD - 07/13/2019 Exam: 1.XR FOOT RIGHT 3VW 2.XR ANKLE RIGHT 3VW 3.XR ANKLE LEFT 2 view 4.XR FOOT LEFT 3VW History: Bilateral foot pain Comparison: None. Findings: Right foot: No fracture or dislocation is seen. Mild osteoarthritis is present atthe first metatarsophalangeal joint. The other joint spaces are normal. Calcaneal spurs are noted. There is a 2.0 x 1.3 cm piece of heterotopic ossification adjacent to the posterior calcaneus. Smaller foci are seenat the plantar aspect. Right ankle: No lateral view is submitted. The tibiotalar joint space is normal. No displaced fracture is seen. No soft tissue swelling is noted. Left foot: No fracture or dislocation is present. The joint spaces are normal. Mild soft tissue swelling is present at the dorsal aspect of the forefoot. Left ankle: No fracture or dislocation is present. The joint spaces are normal.There are large plantar and posterior calcaneal spurs. A 2.5 x 1.3 cm piece of heterotopic ossification is seen adjacent to the posterior superioraspect of the calcaneus in the region of the distal Achilles tendon. The soft tissues are otherwise normal. 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 This report was electronically signed by SUHAS SOTO MD on 07/13/2019 1:38 PM . Crystal Chávez MD DIAGNOSTIC IMAGING O RDERABLES * XR FOOT LEFT 3VW OR MORE (07/13/2019 1:11 PM SECURITY TRAINER) Anatomical Region Laterality Modality Ankle / Foot Radiographic Chantel ging 07/13/2019 1:20 PM SECURITY TRAINER Addenda Addendum by Suhas Soto MD on 07/13/2019 2:12 PM SECURITY TRAINER ORIGINAL REPORT Exam: 1.XR FOOT RIGHT 3VW 2.XR ANKLE RIGHT 3VW 3.XR ANKLE LEFT 2 view 4.XR FOOT LEFT 3VW History: Bilateral foot pain Comparison: None. Findings: Right foot: No fracture or dislocation is seen. 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 The other joint spaces are normal. Calcaneal spurs are noted. There is a 2.0 x 1.3 cm piece of heterotopic ossification adjacent to the posterior calcaneus. Smaller foci are seen at the plantar aspect. Right ankle: No lateral view is submitted. The tibiotalar joint space is normal. No displaced fracture is seen. No soft tissue swelling is noted. Left foot: No fracture or dislocation is present. The joint spaces are normal. Mild soft tissue swelling is present at the dorsal aspect of the forefoot. Left ankle: No fracture or dislocation is present. The joint spaces are normal. There are large plantar and posterior calcaneal spurs. A 2.5 x 1.3 cm piece of heterotopic ossification is seen adjacent to the posterior superior aspect of the calcaneus in the region of the distal Achilles tendon. The soft tissues are otherwise normal. 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 This report was electronically signed by SUHAS SOTO MD on 07/13/2019 1:38 PM . ADDENDUM #1 Please disregard the initial report. The corrected report is: Exam: 1.XR FOOT RIGHT 3VW 2.XR ANKLE RIGHT 3VW 3.XR ANKLE LEFT 3VW 4.XR FOOT LEFT 3VW History: Bilateral foot pain Comparison: None. Findings: Right foot: No fracture or dislocation is seen. 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 The other joint spaces are normal. No soft tissue swelling is seen. Right ankle: No fracture or dislocation is present. The joint spaces are normal. There are large plantar and posterior calcaneal spurs. A 2.0 x 1.3 cm piece of heterotopic ossification is seen adjacent to the posterior superior aspect of the calcaneus in the region of the distal Achilles tendon. Smaller foci are seen at the plantar aspect. The soft tissues are otherwise normal. Left foot: No fracture or dislocation is present. The joint spaces are normal. Mild soft tissue swelling is present at the dorsal aspect of the forefoot. Left ankle: No fracture or dislocation is present. The joint spaces are normal. There are large plantar and posterior calcaneal spurs. A 2.5 x 1.3 cm piece of heterotopic ossification is seen adjacent to the posterior superior aspect of the calcaneus in the region of the distal Achilles tendon. The soft tissues are otherwise normal. 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 This report was electronically signed by SUHAS SOTO MD on 07/13/2019 2:09 PM . 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 This report was electronically signed by SUHAS SOTO MD on 07/13/2019 1:38 PM . Narrative 07/13/2019 1:38 PM SECURITY TRAINER Exam: 1.XR FOOT RIGHT 3VW 2.XR ANKLE RIGHT 3VW 3.XR ANKLE LEFT 2 view 4.XR FOOT LEFT 3VW History: Bilateral foot pain Comparison: None. Findings: Right foot: No fracture or dislocation is seen. 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 The other joint spaces are normal. Calcaneal spurs are noted. There is a 2.0 x 1.3 cm piece of heterotopic ossification adjacent to the posterior calcaneus. Smaller foci are seen at the plantar aspect. Right ankle: No lateral view is submitted. The tibiotalar joint space is normal. No displaced fracture is seen. No soft tissue swelling is noted. Left foot: No fracture or dislocation is present. The joint spaces are normal. Mild soft tissue swelling is present at the dorsal aspect of the forefoot. Left ankle: No fracture or dislocation is present. The joint spaces are normal. There are large plantar and posterior calcaneal spurs. A 2.5 x 1.3 cm piece of heterotopic ossification is seen adjacent to the posterior superior aspect of the calcaneus in the region of the distal Achilles tendon. The soft tissues are otherwise normal. Procedure Note Suhas Soto MD - 07/13/2019 Exam: 1.XR FOOT RIGHT 3VW 2.XR ANKLE RIGHT 3VW 3.XR ANKLE LEFT 2 view 4.XR FOOT LEFT 3VW History: Bilateral foot pain Comparison: None. Findings: Right foot: No fracture or dislocation is seen. Mild osteoarthritis is present atthe first metatarsophalangeal joint. The other joint spaces are normal. Calcaneal spurs are noted. There is a 2.0 x 1.3 cm piece of heterotopic ossification adjacent to the posterior calcaneus. Smaller foci are seenat the plantar aspect. Right ankle: No lateral view is submitted. The tibiotalar joint space is normal. No displaced fracture is seen. No soft tissue swelling is noted. Left foot: No fracture or dislocation is present. The joint spaces are normal. Mild soft tissue swelling is present at the dorsal aspect of the forefoot. Left ankle: No fracture or dislocation is present. The joint spaces are normal.There are large plantar and posterior calcaneal spurs. A 2.5 x 1.3 cm piece of heterotopic ossification is seen adjacent to the posterior superioraspect of the calcaneus in the region of the distal Achilles tendon. The soft tissues are otherwise normal. 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 This report was electronically signed by SUHAS SOTO MD on 07/13/2019 1:38 PM . Crystal Chávez MD DIAGNOSTIC IMAGING O RDERABLES * [place] DRAIN/INJECT LARGE JOINT/BURSA (05/10/2019 5:31 PM CDT) Narrative Jennie Carroll PA-C - 05/10/2019 5:31 PM CDT Jennie Carroll PA-C 05/10/2019 5:31 PM Orthopaedic Surgery Procedure Note Diagnosis: Left knee pain Procedure: Injection of Corticosteroid into the Left knee. Indications: Sujit Andrew is a 54 year old female who has Left knee pain and arthritis. Procedure Details: Ms. Andrew was informed of her condition, and the potential benefits of injection of steroid. The patient was counseled as to the risks of the procedure. She was understanding and agreeable. The patient was placed into the supine position. The area was prepped with beta-dine. Utilizing the supralateral patellar portal, the skin, subcutaneous, and pericapsular tissues were injected with 3 cc 1% lidocaine without epinephrine using a 21 Ga needle. The patient's Left knee was then entered. Confirmation of location inside the joint was evidenced by aspiration of straw colored synovial fluid. 2 cc of Kenalog and 3 cc 1% lidocaine without epinephrine was injected into the joint. The needle was removed and the needle site dressed with a semi-sterile bandage. The patient tolerated the procedure well. Remainder of plan per note. Jennie Carroll PA-C 05/10/2019 5:31 PM Jennie Carroll PA-C PROCEDURE/MINOR SURGICAL ORDERABLES * [place] DRAIN/INJECT LARGE JOINT/BURSA (05/10/2019 5:31 PM CDT) Narrative Jennie Carroll PA-C - 05/10/2019 5:31 PM CDT Jennie Carroll PA-C 05/10/2019 5:31 PM Orthopaedic Surgery Procedure Note Diagnosis: Right knee pain Procedure: Injection of Corticosteroid into the Right knee. Indications: Sujit Andrew is a 54 year old female who has Right knee pain and arthritis. Procedure Details: Ms. Andrew was informed of her condition, and the potential benefits of injection of steroid. The patient was counseled as to the risks of the procedure. She was understanding and agreeable. The patient was placed into the supine position. The area was prepped with beta-dine. Utilizing the supralateral patellar portal, the skin, subcutaneous, and pericapsular tissues were injected with 3 cc 1% lidocaine without epinephrine using a 21 Ga needle. The patient's Right knee was then entered. Confirmation of location inside the joint was evidenced by aspiration of straw colored synovial fluid. 2 cc of Kenalog and 3 cc 1% lidocaine without epinephrine was injected into the joint. The needle was removed and the needle site dressed with a semi-sterile bandage. The patient tolerated the procedure well. Remainder of plan per note. Jnenie Carroll PA-C 05/10/2019 5:31 PM Jennie Carroll PA-C PROCEDURE/MINOR SURGICAL ORDERABLES * XR KNEE RIGHT 4VW OR MORE (05/10/2019 1:16 PM CDT) Anatomical Region Laterality Modality Lower Extremity Radiographic Chantel ging 05/10/2019 2:54 PM CDT Impressions 05/10/2019 3:29 PM CDT IMPRESSION: No acute osseous abnormality or significant arthritis. Dictated by Florin Welsh MD (supply chain vice president). IDr. SUHAS MD have personally reviewed and interpreted this examination/study. This report was electronically signed by SUHAS SOTO MD on 05/10/2019 3:29 PM . Narrative 05/10/2019 3:29 PM CDT EXAMINATION: 1. XR KNEE LEFT 4VW 2. XR KNEE RIGHT 4VW DATE: 05/10/2019 1:16 PM HISTORY: knee pain COMPARISON: No prior study is available for comparison. FINDINGS: Left knee: The osseous structures are intact and well aligned without acute fracture or dislocation. The knee joint space is preserved. No joint effusion is seen. Bone density and texture are normal. No soft tissue swelling is present. There is a large enthesophyte at the attachment of the patellar tendon. 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 Right knee: The osseous structures are intact and well aligned without acute fracture or dislocation. The knee joint space is preserved. No joint effusion is seen. Bone density and texture are normal. No soft tissue swelling is present. There is a small enthesophyte at the attachment of the patellar tendon. Procedure Note Suhas Soto MD - 05/10/2019 EXAMINATION: 1. XR KNEE LEFT 4VW 2. XR KNEE RIGHT 4VW DATE: 05/10/2019 1:16 PM HISTORY: knee pain COMPARISON: No prior study is available for comparison. FINDINGS: Left knee: The osseous structures are intact and well aligned without acute fracture or dislocation. The knee joint space is preserved. Nojoint effusion is seen. Bone density and texture are normal. No soft tissue swelling is present. There is a large enthesophyte at the attachment of the patellar tendon. 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 Right knee: The osseous structures are intact and well aligned without acute fracture or dislocation. The knee joint space is preserved. Nojoint effusion is seen. Bone density and texture are normal. No soft tissue swelling is present. There is a small enthesophyte at the attachment of the patellar tendon. IMPRESSION: No acute osseous abnormality or significant arthritis. Dictated by Florin Welsh MD (supply chain vice president). Dr. SUHAS Neff MD have personally reviewed and interpreted this examination/study. This report was electronically signed by SUHAS SOTO MD on05/10/2019 3:29 PM . Jennie Carroll PA-C DIAGNOSTIC IMAG ING ORDERABLES * XR KNEE LEFT 4VW OR MORE (05/10/2019 1:16 PM CDT) Anatomical Region Laterality Modality Lower Extremity Radiographic Chantel ging 05/10/2019 2:54 PM CDT Impressions 05/10/2019 3:29 PM CDT IMPRESSION: No acute osseous abnormality or significant arthritis. Dictated by Florin Welsh MD (supply chain vice president). Dr. SUHAS Neff MD have personally reviewed and interpreted this examination/study. This report was electronically signed by SUHAS SOTO MD on 05/10/2019 3:29 PM . Narrative 05/10/2019 3:29 PM CDT EXAMINATION: 1. XR KNEE LEFT 4VW 2. XR KNEE RIGHT 4VW DATE: 05/10/2019 1:16 PM HISTORY: knee pain COMPARISON: No prior study is available for comparison. FINDINGS: Left knee: The osseous structures are intact and well aligned without acute fracture or dislocation. The knee joint space is preserved. No joint effusion is seen. Bone density and texture are normal. No soft tissue swelling is present. There is a large enthesophyte at the attachment of the patellar tendon. 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 Right knee: The osseous structures are intact and well aligned without acute fracture or dislocation. The knee joint space is preserved. No joint effusion is seen. Bone density and texture are normal. No soft tissue swelling is present. There is a small enthesophyte at the attachment of the patellar tendon. Procedure Note Suhas Soto MD - 05/10/2019 EXAMINATION: 1. XR KNEE LEFT 4VW 2. XR KNEE RIGHT 4VW DATE: 05/10/2019 1:16 PM HISTORY: knee pain COMPARISON: No prior study is available for comparison. FINDINGS: Left knee: The osseous structures are intact and well aligned without acute fracture or dislocation. The knee joint space is preserved. Nojoint effusion is seen. Bone density and texture are normal. No soft tissue swelling is present. There is a large enthesophyte at the attachment of the patellar tendon. 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 Right knee: The osseous structures are intact and well aligned without acute fracture or dislocation. The knee joint space is preserved. Nojoint effusion is seen. Bone density and texture are normal. No soft tissue swelling is present. There is a small enthesophyte at the attachment of the patellar tendon. IMPRESSION: No acute osseous abnormality or significant arthritis. Dictated by Florin Welsh MD (supply chain vice president). Dr. SUHAS Neff MD have personally reviewed and interpreted this examination/study. This report was electronically signed by SUHAS SOTO MD on05/10/2019 3:29 PM . Jennie Carroll PA-C DIAGNOSTIC IMAG ING ORDERABLES * PATHOLOGY TISSUE FOR DERMATOLOGY (03/12/2011 12:00 AM CDT) Result CASE: [id number] PATIENT: SUJIT ANDERW PATHOLOGIC DIAGNOSIS: Right lower leg: SEBORRHEIC KERATOSIS, INFLAMED CLINICAL DATA: R/O Atypia. GROSS DESCRIPTION: Received is one formalin filled container labeled with the patient's name and designated right lower leg. The specimen consists of a shave biopsy measuring 6x6x2 mm. Jar 0. MICROSCOPIC DESCRIPTION: There is hyperkeratosis, parakeratosis, papillomatosis, and acanthosis of the epidermis. 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 Final Diagnosis performed by Bree Fink M.D. Electronically signed 03/16/2011 2:20:28PM [facility] Comment: Performed at: Dermatopathology Laboratory [facility] Department of Dermatology [address] [place] [address], Room [address] [place] [address] Phone number: [phone] Toll Free: [phone] FAX: [phone] 03/12/2011 03/15/2011 Historical Provider LAB - PATHOLOGY/C YTOLOGY ORDERABLES [facility] [address] [place] [address]. [address] Floor Lab [address] [phone] Care Teams Humanities Coordinator Relationship Specialty Start Date End Date Tristan Mills MD PCP - General 05/10/19
--- OUTSIDE RECORDS SUMMARY | 2024-10-12 14:36 | XMS_ITS | Encounter Summary ---
Author Organization [facility] Address [address] [place] [address] Phone Care Team Providers Care Sequencing Machine Operator Name Role Phone Tristan Mills MD Primary Care Provider [phone] Laura Michaels MD Unavailable [phone] Cristofer Wilson MD Unavailable [phone] Esteban Carpenter MD Unavailable Mejia Ayon MD Unavailable Reason for Visit * Reason Comments Medication Refill Encounter Details Date Type Department Care Team (Late st Contact Info) Description 06/27/2022 Refill [facility] - Family Medicine [facility] [address] [place] [phone] Tristan Mills MD [address] [address] Medication Refill Social History Tobacco Use Types [...] Telephone Encounter - Annabel Larose RN - 06/28/2022 10:36 AM MIRROR MACHINE FEEDER PDMP 05/30/2022 #90 Medication failed the protocol, provider to review and approve the medication order if appropriate. Requested Prescriptions Pending Prescriptions Disp Refills cyclobenzaprine (FLEXERIL) 5 MG Tablet [Pharmacy Med Name: CYCLOBENZAPRINE 5 MG TABLET] 90 Tablet 1 Sig: TAKE 1 TAB BY MOUTH 3 TIMES DAILY NEEDED FOR MUSCLE SPASMS. Not Delegated - Muscle Relaxants Protocol Failed - 06/27/2022 2:46 PM Failed - This refill cannot be delegated Passed - Visit with relevant provider in past 12 months or upcoming 90 days Recent Visits Date Type Provider Dept 03/19/22 Office Visit Tristan Mills MD [facility] 12/07/21 Office Visit Tristan Mills MD [facility] 07/24/21 Office Visit Brooks Vazquez APRN, [facility] Showing recent visits within past 365 days and meeting all other requirements Future Appointments Date Type Provider Dept 07/05/22 Appointment Brooks Vazquez APRN, [facility] Showing future appointments within next 90 days and meeting all other requirements OR MACHINE FEEDER documented in this encounter Plan of Treatment Not on file documented as of this encounter Visit Diagnoses Not on filedocumented in this encounter Additional Health Concerns Infection Onset Date Last Indicated Resolved Time COVID - 19 07/28/2022 07/28/2022 08/07/2022 12:1 6 AM MIRROR MACHINE FEEDER Influenza 07/28/2022 07/28/2022 08/04/2022 12:1 6 AM MIRROR MACHINE FEEDER Respiratory Rule Out - RPA 06/23/2023 06/23/2023 1 08/23/2022 5:23 PM CDT COVID - 19 09/28/2023 09/28/2023 10/08/2023 12:1 6 AM MIRROR MACHINE FEEDER Assessment Noted Time PHQ-9 Depression Total Score: 0 12/08/19 11:00 AM CDT documented as of this encounter Care Teams Sequencing Machine Operator Relationship Specialty Start Date End Date Tristan Mills MD #2 [facility] [address] [place] [address] PCP - General Family Medicine 09/01/17 Laura Michaels MD #2 [facility] [address] [place] [address] Consulting Physician Urology 09/25/18 Cristofer Wilson MD #2 [facility] [address] [place] [address] General Surgery 09/25/18 Esteban Carpenter MD #2 [facility] [address] [place] [address] Consulting Physician Colon and Rectal Surgery 10/06/23 Mejia Ayon MD #2 [facility] [address] [place] [address] Consulting Physician Urology 02/29/24 documented as of this encounter
--- OUTSIDE RECORDS SUMMARY | 2024-10-12 14:36 | XMS_ITS | Encounter Summary ---
Author Organization [facility] Address [address] [place] [address] Phone Care Team Providers Care Manager Laundry Name Role Phone Tristan Mills MD Primary Care Provider [phone] Laura Michaels MD Unavailable [phone] Cristofer Wilson MD Unavailable [phone] Esteban Carpenter MD Unavailable Mejia Ayon MD Unavailable Reason for Visit * Reason Comments Medication Refill Encounter Details Date Type Department Care Team (Late st Contact Info) Description 12/25/2022 Refill [facility] [address] [place] [address] Janeen Ritter APRN, RAILROAD TRACK REPAIR SUPERVISOR [address] [place] [address] Medication Refill Social History Tobacco Use Types [...] as of this encounter Visit Diagnoses Diagnosis Acute cough documented in this encounter Additional Health Concerns Infection Onset Date Last Indicated Resolved Time Respiratory Rule Out - RPA 06/23/2023 06/23/2023 1 08/23/2022 5:23 PM CDT COVID - 19 09/28/2023 09/28/2023 10/08/2023 12:1 6 AM [employer] Assessment Noted Time PHQ-9 Depression Total Score: 0 12/08/19 11:00 AM CDT documented as of this encounter Care Teams Manager Laundry Relationship Specialty Start Date End Date Tristan Mills MD #2 [facility] [address] [place] [address] PCP - General Family Medicine 09/01/17 Laura Michaels MD #2 [facility] [address] [place] [address] Consulting Physician Urology 09/25/18 Cristofer Wilson MD #2 [facility] [address] [place] [address] General Surgery 09/25/18 Esteban Carpenter MD #2 [facility] [address] [place] [address] Consulting Physician Colon and Rectal Surgery 10/06/23 Mejia Ayon MD #2 [facility] [address] [place] [address] Consulting Physician Urology 02/29/24 documented as of this encounter
--- OUTSIDE RECORDS SUMMARY | 2024-10-12 14:36 | XMS_ITS | Referral Summary ---
Author Organization [facility] [employer] Address [address] [place] [address] Care Team Providers Care Physical Therapist Center Manager Name Role Phone Tristan Mills MD Primary Care Provider [phone] Source Comments [facility],non-owned Affiliates and Associated Physician Practices is amultiple site organization consisting of ambulatory clinics and hospital sitesin [place], [place], [place] and [place]. This disclosure is being madepursuant to the Care Everywhere program and may not contain all information available regarding this patient. Last updated 18.[facility] [employer] Allergies Active Allergy Reactions Criticality Noted Date [...] E11.9 05/28/2019 Active Blood Glucose Monitoring Suppl ([employer] VERIO) w/Device KIT USE TO TEST ONCE [...] 01/17/2020 9:41 AM CDT Plan of Treatment Not on file Care Teams Physical Therapist Center Manager Relationship Specialty Start Date End Date Tristan Mills MD PCP - General 05/10/19
--- OUTSIDE RECORDS SUMMARY | 2024-10-12 14:36 | XMS_ITS | Encounter Summary ---
Author Organization [facility] Address [address] [address] Phone Care Team Providers Care Flower Cheniller Name Role Phone Tristan Mills MD Primary Care Provider [phone] Laura Michaels MD Unavailable [phone] Cristofer Wilson MD Unavailable [phone] Esteban Carpenter MD Unavailable Mejia Ayon MD Unavailable Reason for Visit * Reason Comments Medication Refill Encounter Details Date Type Department Care Team (Late st Contact Info) Description 07/29/2022 Refill [facility] #2 [place] [phone] Tristan Mills MD [address] [address] Medication Refill Social History Tobacco Use Types [...] Coronavirus/COVID-19? No / Unsure 08/01/2022 1:23 PM FX ARTIST documented as of this encounter Miscellaneous Notes * Telephone Encounter - Annabel Larose RN - 07/29/2022 9:25 AM FX ARTIST Medication failed the protocol, provider to review and approve the medication order if appropriate. Requested Prescriptions Pending Prescriptions Disp Refills carvedilol (COREG) 3.125 MG Tablet [Pharmacy Med Name: CARVEDILOL 3.125 MG TABLET] 180 Tablet 3 Sig: TAKE 1 TABLET BY MOUTH TWICE A DAY Beta-Blockers Protocol Passed - 07/29/2022 12:27 AM Passed - BP on record in the past year Clinician-entered: BP Readings from Last 3 Encounters: 07/28/22 116/62 07/05/22 102/68 04/11/22 108/68 Patient-entered: No data recorded Passed - Visit with relevant provider in past 12 months or upcoming 90 days Recent Visits Date Type Provider Dept 07/05/22 Office Visit Brooks Vazquez APRN, NILES [facility] [place] 03/19/22 Office Visit Tristan Mills MD [facility] 12/07/21 Office Visit Tristan Mills MD [facility] Showing recent visits within past 365 days and meeting all other requirements Future Appointments Date Type Provider Dept 10/05/22 Appointment Tristan Mills MD [facility] Showing future appointments within next 90 days and meeting all other requirements escitalopram (LEXAPRO) 20 MG Tablet [Pharmacy Med Name: ESCITALOPRAM 20 MG TABLET] 90 Tablet 3 Sig: TAKE 1 TABLET BY MOUTH EVERY DAY SSRI (6 Month Refill Only) Protocol Failed - 07/29/2022 12:27 AM Failed - Has an encounter in the past 6 months with a depression, anxiety, adjustment disorder, OCD, or PTSD visit diagnosis Passed - Visit with relevant provider in past 6 months or upcoming 90 days Recent Visits Date Type Provider Dept 07/05/22 Office Visit Brooks aVzquez APRN, NILES [facility] 03/19/22 Office Visit Tristan Mills MD [facility] Showing recent visits within past 182 days and meeting all other requirements Future Appointments Date Type Provider Dept 10/05/22 Appointment Tristan Mills MD [facility] Showing future appointments within next 90 days and meeting all other requirements Passed - Patient has established therapy with SSRI for at least 6 months ARTIST documented in this encounter Plan of Treatment Not on file documented as of this encounter Visit Diagnoses Not on filedocumented in this encounter Additional Health Concerns Infection Onset Date Last Indicated Resolved Time COVID - 19 07/28/2022 07/28/2022 08/07/2022 12:1 6 AM FX ARTIST Influenza 07/28/2022 07/28/2022 08/04/2022 12:1 6 AM FX ARTIST Respiratory Rule Out - RPA 06/23/2023 06/23/2023 1 08/23/2022 5:23 PM CDT COVID - 19 09/28/2023 09/28/2023 10/08/2023 12:1 6 AM FX ARTIST Assessment Noted Time PHQ-9 Depression Total Score: 0 12/08/19 11:00 AM CDT documented as of this encounter Care Teams Flower Cheniller Relationship Specialty Start Date End Date Tristan Mills MD #[address] [address] PCP - General Family Medicine 09/01/17 Laura Michaels MD #[address] [address] Consulting Physician Urology 09/25/18 Cristofer Wilson MD #[address] [address] General Surgery 09/25/18 Esteban Carpenter MD #2 [facility] [address] [place] [address] Consulting Physician Colon and Rectal Surgery 10/06/23 Mejia Ayon MD #2 [facility] [address] [place] [address] Consulting Physician Urology 02/29/24 documented as of this encounter
--- OUTSIDE RECORDS SUMMARY | 2024-10-12 14:36 | XMS_ITS | Encounter Summary ---
Author Organization [facility] Address [address] [place] [address] Phone Care Team Providers Care Apartment Property Manager Name Role Phone Tristan Mills MD Primary Care Provider [phone] Laura Michaels MD Unavailable [phone] Cristofer Wilson MD Unavailable [phone] Esteban Carpenter MD Unavailable Mejia Ayon MD Unavailable Reason for Visit * Reason Comments Medication Refill Encounter Details Date Type Department Care Team (Late st Contact Info) Description 04/04/2023 Refill [facility] #2 [place] [phone] Tristan Mills MD #[address] [address] Medication Refill Social History Tobacco Use Types [...] suspected to have Coronavirus/COVID-19? No / Unsure 03/08/2023 3:16 PM CDT documented as of this encounter Miscellaneous Notes * Telephone Encounter - Elly Fisher RMA - 04/07/2023 9:16 AM CDT Patient states taking buspar tid, scheduled a follow up for 04/18 * Telephone Encounter - Elly Fisher RMA - 04/06/2023 12:58 PM CDT Lvm to return call. * Telephone Encounter - Magda Bryson RN - 04/04/2023 12:37 PM CDT LVM for pt to return call to office. Please confirm what she is taking. * Telephone Encounter - Magda Bryson RN - 04/04/2023 12:29 PM CDT Images from the original note were not included. OV 10/05/22 - Buspar was increased to 3 times a day A refill request was received 01/16/23 for twice daily. Another RN approved the twice daily dosing for 1 year. Approved Medication Requests busPIRone HCl 15 MG TAKE 1 TABLET BY MOUTH TWICE A DAY documented in this encounter Plan of Treatment Not on file documented as of this encounter Visit Diagnoses Not on filedocumented in this encounter Additional Health Concerns Infection Onset Date Last Indicated Resolved Time Respiratory Rule Out - RPA 06/23/2023 06/23/2023 1 08/23/2022 5:23 PM CDT COVID - 19 09/28/2023 09/28/2023 10/08/2023 12:1 6 AM FACING MACHINE OPERATOR Assessment Noted Time PHQ-9 Depression Total Score: 0 12/08/19 22 11:00 AM CDT documented as of this encounter Care Teams Apartment Property Manager Relationship Specialty Start Date End Date Tristan Mills MD #[address] [facility] [address] [place] [address] PCP - General Family Medicine 09/01/17 Laura Michaels MD #[address] [facility] [address] [place] [address] Consulting Physician Urology 09/25/18 Cristofer Wilson MD #[address] [facility] [address] [place] [address] General Surgery 09/25/18 Esteban Carpenter MD #[address] [facility] [address] [place] [address] Consulting Physician Colon and Rectal Surgery 10/06/23 Mejia Ayon MD #2 [facility] [address] [place] [address] Consulting Physician Urology 02/29/24 documented as of this encounter
--- OUTSIDE RECORDS SUMMARY | 2024-10-12 14:36 | XMS_ITS | Encounter Summary ---
Author Organization [facility] Address [address] [place] [address] [place] [address] Phone Care Team Providers Care Flame Hardening Machine Setter Name Role Phone Tristan Mills MD Primary Care Provider [phone] Laura Michaels MD Unavailable [phone] Cristofer Wilson MD Unavailable [phone] Esteban Carpenter MD Unavailable Mejia yAon MD Unavailable Reason for Visit * Reason Comments Medication Refill Encounter Details Date Type Department Care Team (Late st Contact Info) Description 03/23/2022 Refill [facility] #2 [place] [phone] Tristan Mills MD #[address] [address] Medication Refill Social History Tobacco Use Types [...] suspected to have Coronavirus/COVID-19? No / Unsure 03/19/2022 10:41 AM CDT documented as of this encounter Miscellaneous Notes * Telephone Encounter - Magda Bryson RN - 03/24/2022 9:14 AM CDT Name from pharmacy: IBUPROFEN 800 MG TABLET Will file in chart as: ibuprofen (MOTRIN) 800 MG Tablet The original prescription was discontinued on 03/19/2022 by Tristan Mills MD for the followingreason: Therapy completed. documented in this encounter Plan of Treatment Not on file documented as of this encounter Visit Diagnoses Not on filedocumented in this encounter Additional Health Concerns Infection Onset Date Last Indicated Resolved Time COVID - 19 04/11/2022 04/11/2022 04/21/2022 12:1 6 AM CDT COVID - 19 07/28/2022 07/28/2022 08/07/2022 12:1 6 AM COAL BAGGER Influenza 07/28/2022 07/28/2022 08/04/2022 12:1 6 AM COAL BAGGER Respiratory Rule Out - RPA 06/23/2023 06/23/2023 1 08/23/2022 5:23 PM CDT COVID - 19 09/28/2023 09/28/2023 10/08/2023 12:1 6 AM COAL BAGGER Assessment Noted Time PHQ-9 Depression Total Score: 0 12/08/19 22 11:00 AM CDT documented as of this encounter Care Teams Flame Hardening Machine Setter Relationship Specialty Start Date End Date Tristan Mills MD #[address] [address] PCP - General Family Medicine 09/01/17 Laura Michaels MD #2 [facility] [address] [place] [address] Consulting Physician Urology 09/25/18 Cristofer Wilson MD #2 [facility] [address] [place] [address] General Surgery 09/25/18 Esteban Carpenter MD #2 [facility] [address] [place] [address] Consulting Physician Colon and Rectal Surgery 10/06/23 Mejia Ayon MD #2 [facility] [address] [place] [address] Consulting Physician Urology 02/29/24 documented as of this encounter
--- OUTSIDE RECORDS SUMMARY | 2024-10-12 14:36 | XMS_ITS | Encounter Summary ---
Author Organization [facility] Address [address] [place] [address] [place] [address] Phone Care Team Providers Care Welding Operator Name Role Phone Tristan Mills MD Primary Care Provider [phone] Larua Michaels MD Unavailable [phone] Cristofer Wilson MD Unavailable [phone] Esteban Carpenter MD Unavailable Mejia Ayon MD Unavailable Reason for Visit * Reason Comments Medication Refill Encounter Details Date Type Department Care Team (Late st Contact Info) Description 07/24/2022 Refill [facility] #2 [place] [phone] Tristan Mills MD #[address] [address] Medication Refill Social History Tobacco Use Types [...] suspected to have Coronavirus/COVID-19? No / Unsure 07/05/2022 3:56 PM PONY TRIMMER documented as of this encounter Miscellaneous Notes * Telephone Encounter - Magda Bryson RN - 07/26/2022 8:18 AM CST Medication failed the protocol, provider to review and approve the medication order if appropriate. Requested Prescriptions Pending Prescriptions Disp Refills glimepiride (AMARYL) 1 MG Tablet [Pharmacy Med Name: GLIMEPIRIDE 1 MG TABLET] 90 Tablet 3 Sig: TAKE 1 TABLET BY MOUTH EVERY DAY IN THE MORNING Sulfonylureas Protocol Failed - 07/24/2022 12:56 AM Failed - HgA1C on record in [...] 90 days and meeting all other requirements TRIMMER documented in this encounter Plan of Treatment Not on file documented as of this encounter Visit Diagnoses Not on filedocumented in this encounter Additional Health Concerns Infection Onset Date Last Indicated Resolved Time COVID - 19 07/28/2022 07/28/2022 08/07/2022 12:1 6 AM PONY TRIMMER Influenza 07/28/2022 07/28/2022 08/04/2022 12:1 6 AM PONY TRIMMER Respiratory Rule Out - RPA 06/23/2023 06/23/2023 1 08/23/2022 5:23 PM CDT COVID - 19 09/28/2023 09/28/2023 10/08/2023 12:1 6 AM PONY TRIMMER Assessment Noted Time PHQ-9 Depression Total Score: 0 12/08/19 22 11:00 AM CDT documented as of this encounter Care Teams Welding Operator Relationship Specialty Start Date End Date Tristan Mills MD #2 [facility] [address] [place] [address] PCP - General Family Medicine 09/01/17 Laura Michaels MD #2 [facility] [address] [place] [address] Consulting Physician Urology 09/25/18 Cristofer Wilson MD #2 [facility] [address] [place] [address] General Surgery 09/25/18 Esteban Carpenter MD #[address] [address] Consulting Physician Colon and Rectal Surgery 10/06/23 Mejia Ayon MD #[address] [facility] [address] [place] [address] Consulting Physician Urology 02/29/24 documented as of this encounter
--- OUTSIDE RECORDS SUMMARY | 2024-10-12 14:36 | XMS_ITS | Encounter Summary ---
Author Organization [facility] Address [address] [place] [address] Phone Care Team Providers Care Irradiated Fuel Handler Name Role Phone Tristan Mills MD Primary Care Provider [phone] Laura Michaels MD Unavailable [phone] Cristofer Wilosn MD Unavailable [phone] Esteban Carpenter MD Unavailable Mejia Ayon MD Unavailable Reason for Visit * Reason Comments Medication Refill Encounter Details Date Type Department Care Team (Late st Contact Info) Description 03/08/2022 Refill [facility] #2 [place] [phone] Tristan Mills MD #[address] [address] Medication Refill Social History Tobacco Use Types [...] suspected to have Coronavirus/COVID-19? No / Unsure 02/24/2022 4:20 PM CDT documented as of this encounter Miscellaneous Notes * Telephone Encounter - Magda Bryson RN - 03/09/2022 1:16 PM CDT Medication failed the protocol, provider to review and approve the medication order if appropriate. Requested Prescriptions Pending Prescriptions Disp Refills ibuprofen (MOTRIN) 800 MG Tablet [Pharmacy Med Name: IBUPROFEN 800 MG TABLET] 60 Tablet 0 Sig: TAKE 1 TABLET BY MOUTH EVERY 6 HOURS NEEDED NSAIDs Protocol Failed - 03/08/2022 1:10 PM Failed - Normal serum creatinine in past 12 months CREATININE - POCT Date Value Ref Range Status 07/07/2020 1.1 0.6 - 1.3 mg/dL Final Failed - No matching NSAID med order in past 45 days Matching medication order placed on 02/19/2022 11:45 AM Order [id number]: ibuprofen (MOTRIN) 800 MG Tablet (For orders placed between 01/23/2022 1:16 PM and 03/09/2022 1:16 PM) Failed - AST less than 55 or [...] Dept 12/07/21 Office Visit Tristan Mills MD [facility] [place] 07/24/21 Office Visit Brooks Vaz[facility] APRN, SUPERINTENDENT OF GENERATION [facility] Show[facility] recent visits within past 365 [...] 19 07/28/2022 07/28/2022 08/07/2022 12:1 6 AM CAPITAL CAMPAIGN FUNDRAISER Influenza 07/28/2022 07/28/2022 08/04/2022 12:1 6 AM CAPITAL CAMPAIGN FUNDRAISER Respiratory Rule Out - RPA 06/23/2023 06/23/2023 1 08/23/2022 5:23 PM CDT COVID - 19 09/28/2023 09/28/2023 10/08/2023 12:1 6 AM CAPITAL CAMPAIGN FUNDRAISER Assessment Noted Time PHQ-9 Depression Total Score: 0 12/08/19 11:00 AM CDT documented as of this encounter Care Teams Irradiated Fuel Handler Relationship Specialty Start Date End Date Tristan Mills MD #[address] [address] PCP - General Family Medicine 09/01/17 Laura Michaels MD #[address] [address] Consulting Physician Urology 09/25/18 Cristofer Wilson MD #[address] [address] General Surgery 09/25/18 Esteban Carpenter MD #2 [facility] [address] [place] [address] Consulting Physician Colon and Rectal Surgery 10/06/23 Mejia Ayon MD #2 [facility] [address] [place] [address] Consulting Physician Urology 02/29/24 documented as of this encounter
--- OUTSIDE RECORDS SUMMARY | 2024-10-12 14:36 | XMS_ITS | Encounter Summary ---
Author Organization [facility] Address [address] [place] [address] Phone Care Team Providers Care Sanitizer Name Role Phone Tristan Mills MD Primary Care Provider [phone] Laura Michaels MD Unavailable [phone] Cristofer Wilson MD Unavailable [phone] Esteban Carpenter MD Unavailable Mejia Ayon MD Unavailable Reason for Visit * Reason Comments Medication Refill Encounter Details Date Type Department Care Team (Late st Contact Info) Description 03/22/2023 Refill [facility] #2 [place] [phone] Tristan Mills MD #[address] [address] Medication Refill Social History Tobacco Use Types [...] Telephone Encounter - Magda Bryson RN - 03/22/2023 3:31 PM CDT Medication failed the protocol, provider to review and approve the medication order if appropriate. Requested Prescriptions Pending Prescriptions Disp Refills metFORMIN (GLUCOPHAGE) 1000 MG Tablet [Pharmacy Med Name: METFORMIN HCL 1,000 MG TABLET] 180 Tablet1 Sig: TAKE 1 TABLET BY MOUTH TWICE A DAY WITH MEALS Biguanides Protocol Failed - 03/22/2023 10:39 AM Failed - HgA1C on record in past 6 months No results found for: HGBA1C Failed - GFR on record in past 6 months No results found for: GFRNA Passed - Visit with relevant provider in past 6 months or upcoming 90 days Recent Visits Date Type Provider Dept 10/05/22 Office Visit Tristan Mills MD [facility] Showing recent visits within past 182 days [...] 19 09/28/2023 09/28/2023 10/08/2023 12:1 6 AM ENVIRONMENTAL RESOURCE SPECIALIST Assessment Noted Time PHQ-9 Depression Total Score: 0 12/08/19 22 11:00 AM CDT documented as of this encounter Care Teams Sanitizer Relationship Specialty Start Date End Date Tristan Mills MD #[address] [address] PCP - General Family Medicine 09/01/17 Laura Michaels MD #[address] [address] Consulting Physician Urology 09/25/18 Cristofer Wilson MD #[address] [address] General Surgery 09/25/18 Esteban Carpenter MD #[address] [address] Consulting Physician Colon and Rectal Surgery 10/06/23 Mejia Ayon MD #[address] [address] Consulting Physician Urology 02/29/24 documented as of this encounter
--- OUTSIDE RECORDS SUMMARY | 2024-10-12 14:36 | XMS_ITS | Encounter Summary ---
Author Organization [facility] Address [address] [place] [address] Phone Care Team Providers Care Hand Candle Molder Name Role Phone Tristan Mills MD Primary Care Provider [phone] Laura Michaels MD Unavailable [phone] Cristofer Wilson MD Unavailable [phone] Esteban Carpenter MD Unavailable Mejia Ayon MD Unavailable Reason for Visit * Reason Comments Medication Refill Encounter Details Date Type Department Care Team (Late st Contact Info) Description 08/26/2020 Refill [facility] [address] [place] [address] Tristan Mills MD #[address] [address] Medication Refill Social History Tobacco Use Types [...] COVID-19? No / Unsure 08/02/2020 10:49 AM AGRICULTURE DEPARTMENT CHAIR documented as of this encounter Miscellaneous Notes * Telephone Encounter - Anu Francis - 08/29/2020 9:16 AM CST Call from patient following up on refill request for carvedilol (COREG) 3.125 MG Tablet. Patient informed it is in process. Patient will be out of medication by Tuesday. Refill pending for review and approval CULTURE DEPARTMENT CHAIR * Telephone Encounter - Magda Bryson RN - 08/26/2020 1:39 PM CST Please address medication warning Per nursing clinical judgement, provider to review and approve the medication(s) order(s) if appropriate. Requested Prescriptions Pending Prescriptions Disp Refills carvedilol (COREG) 3.125 MG Tablet [Pharmacy Med Name: CARVEDILOL 3.125 MG TABLET] 180 Tab 3 Sig: TAKE 1 TABLET BY MOUTH TWICE A DAY Cardiovascular: Beta Blockers Passed - 08/26/2020 12:11 AM Passed - Valid encounter within last 12 months Past Office Visits Recent Outpatient Visits 1 month ago Chronic right shoulder pain [facility] Brooks Raphael APN, DIAMOND SELECTOR 2 months ago Left inguinal hernia [facility] Tristan Luciano MD 2 months ago Essential hypertension [facility] Brooks Raphael APN, DIAMOND SELECTOR 3 months ago Nephrolithiasis [facility] Brooks Raphael APN, NILES 5 months ago Anxiety [facility] Tristan Luciano MD Upcoming Appointments Future Appointments In 1 week Tristan Mills MD [facility] TEA BAG PACKER - Recent and Past Visits Recent Visits Date Type Provider Dept 07/25/20 Office Visit Brooks Vazquez APN, NILES [facility] 06/25/20 Office Visit Tristan Mills MD [facility] 06/02/20 Office Visit Brooks Vazquez APN, NILES [facility] 05/21/20 Office Visit Brooks Vazquez APN, NILES [facility] 02/29/20 Office Visit Tristan Mills MD [facility] 10/30/19 Office Visit Tristan Mills MD [facility] 07/26/19 Office Visit Tristan Mills MD [facility] 05/28/19 Office Visit Magaly Casey, ASPEN [facility] Showing recent visits within past 460 days with a meds authorizing provider and meeting all other requirements Future Appointments Date Type Provider Dept 09/02/20 Appointment Tristan Mills MD [facility] Showing future appointments within next 90 days with a meds authorizing provider and meeting all other requirements Passed - Last BP in normal range BP Readings from Last 1 Encounters: 07/25/20 112/64 CULTURE DEPARTMENT CHAIR documented in this encounter Plan of Treatment Not on file documented as of this encounter Visit Diagnoses Not on filedocumented in this encounter Additional Health Concerns Infection Onset Date Last Indicated Resolved Time COVID - 19 03/06/2021 03/06/2021 03/07/2021 8:43 AM CDT COVID - 19 08/13/2021 08/17/2021 09/06/2021 12:1 6 AM AGRICULTURE DEPARTMENT CHAIR COVID - 19 Confirmed 08/17/2021 08/17/2021 022 12:16 AM AGRICULTURE DEPARTMENT CHAIR COVID - 19 04/11/2022 04/11/2022 04/21/2022 12:1 6 AM CDT COVID - 19 07/28/2022 07/28/2022 08/07/2022 12:1 6 AM AGRICULTURE DEPARTMENT CHAIR Influenza 07/28/2022 07/28/2022 08/04/2022 12:1 6 AM AGRICULTURE DEPARTMENT CHAIR Respiratory Rule Out - RPA 06/23/2023 06/23/2023 1 08/23/2022 5:23 PM CDT COVID - 19 09/28/2023 09/28/2023 10/08/2023 12:1 6 AM AGRICULTURE DEPARTMENT CHAIR Assessment Noted Time PHQ-9 Depression Total Score: 0 06/25/20 20 4:52 PM AGRICULTURE DEPARTMENT CHAIR documented as of this encounter Care Teams Hand Candle Molder Relationship Specialty Start Date End Date Tristan Mills MD #2 [facility] [address] [place] [address] PCP - General Family Medicine 09/01/17 Laura Michaels MD #2 [facility] [address] [place] [address] Consulting Physician Urology 09/25/18 Cristofer Wilson MD #2 [facility] [address] [place] [address] General Surgery 09/25/18 Esteban Carpenter MD #[address] [address] Consulting Physician Colon and Rectal Surgery 10/06/23 Mejia Ayon MD #2 [facility] [address] [place] [address] Consulting Physician Urology 02/29/24 documented as of this encounter
--- OUTSIDE RECORDS SUMMARY | 2024-10-12 14:36 | XMS_ITS | Encounter Summary ---
Author Organization [facility] Address [address] [place] [address] Phone Care Team Providers Care Extension Course Counselor Name Role Phone Tristan Mills MD Primary Care Provider [phone] Laura Michaels MD Unavailable [phone] Cristofer Wilson MD Unavailable [phone] Esteban Carpenter MD Unavailable Mejia Ayon MD Unavailable Reason for Visit * Reason Comments Medication Refill Encounter Details Date Type Department Care Team (Late st Contact Info) Description 04/08/2022 Refill [facility] [place] [id number] Tristan Mills MD #[address] [address] Medication Refill Social History Tobacco Use Types [...] suspected to have Coronavirus/COVID-19? No / Unsure 04/11/2022 12:04 PM CDT documented as of this encounter Miscellaneous Notes * Telephone Encounter - Annabel Larose RN - 04/08/2022 12:49 PM CDT Medication discontinued 03/19/2022 by PCP. documented in this encounter Plan of Treatment Not on file documented as of this encounter Visit Diagnoses Not on filedocumented in this encounter Additional Health Concerns Infection Onset Date Last Indicated Resolved Time COVID - 19 04/11/2022 04/11/2022 04/21/2022 12:1 6 AM CDT COVID - 19 07/28/2022 07/28/2022 08/07/2022 12:1 6 AM MEMBER OF THE LEGISLATIVE COUNCIL Influenza 07/28/2022 07/28/2022 08/04/2022 12:1 6 AM MEMBER OF THE [employer]GISL[employer]NC[employer] Respiratory Rule Out - RPA 06/23/2023 06/23/2023 1 08/23/2022 5:23 PM CDT COVID - 19 09/28/2023 09/28/2023 10/08/2023 12:1 6 AM MEMBER OF THE LEGISLATIVE [employer]NCIL Assessment Noted Time PHQ-9 Depression Total Score: 0 12/08/19 22 11:00 AM CDT documented as of this encounter Care Teams Extension Course Counselor Relationship Specialty Start Date End Date Tristan Mills MD #2 [facility] [address] [place] [address] PCP - General Family Medicine 09/01/17 Laura Michaels MD #2 [facility] [address] [place] [address] Consulting Physician Urology 09/25/18 Cristofer Wilson MD #2 [facility] [address] [place] [address] General Surgery 09/25/18 Esteban Carpenter MD #2 [facility] [address] [place] [address] Consulting Physician Colon and Rectal Surgery 10/06/23 Mejia Ayon MD #2 [facility] [address] [place] [address] Consulting Physician Urology 02/29/24 documented as of this encounter
--- OUTSIDE RECORDS SUMMARY | 2024-10-12 14:36 | XMS_ITS | Encounter Summary ---
Author Organization [facility] Address [address] [place] [address] Phone Care Team Providers Care Chrome Polisher Name Role Phone Tristan Mills MD Primary Care Provider [phone] Laura Michaels MD Unavailable [phone] Cristofer Wilson MD Unavailable [phone] Esteban Carpenter MD Unavailable Mejia Ayon MD Unavailable Reason for Visit * Reason Comments Medication Refill Encounter Details Date Type Department Care Team (Late st Contact Info) Description 02/19/2022 Refill [facility] - Family Medicine - [place] [address] [place] [address] Brooks Vazquez, MANAGER POLICY, INSPECTOR SALVAGE #[address] [address] Medication Refill Social History Tobacco Use Types [...] Telephone Encounter - Magda Bryson RN - 02/19/2022 11:20 AM CDT Medication failed the protocol, provider to review and approve the medication order if appropriate. Requested Prescriptions Pending Prescriptions Disp Refills ibuprofen (MOTRIN) 800 MG Tablet [Pharmacy Med Name: IBUPROFEN 800 MG TABLET] 60 Tablet 0 Sig: TAKE 1 TABLET BY MOUTH EVERY 6 HOURS NEEDED NSAIDs Protocol Failed - 02/19/2022 6:35 AM Failed - Normal serum creatinine in [...] [place] 07/24/21 Office Visit Brooks Vazquez APRN, INSPECTOR SALVAGE [facility] Showing recent visits within past 365 days and meeting all other requirements Future Appointments Date Type Provider Dept 03/19/22 Appointment Tristan Mills MD [facility] Showing future appointments within next 90 days and meeting all other requirements Passed - No matching NSAID med order in past 45 days No matching medication orders between 01/05/2022 11:20 AM and 02/19/2022 11:20 AM documented in this encounter Plan of Treatment Not on file documented as of this encounter Visit Diagnoses Not on filedocumented in this encounter Additional Health Concerns Infection Onset Date Last Indicated Resolved Time COVID - 19 04/11/2022 04/11/2022 04/21/2022 12:1 6 AM CDT COVID - 19 07/28/2022 07/28/2022 08/07/2022 12:1 6 AM ACOUSTICAL INSTALLER Influenza 07/28/2022 07/28/2022 08/04/2022 12:1 6 AM ACOUSTICAL INSTALLER Respiratory Rule Out - RPA 06/23/2023 06/23/2023 1 08/23/2022 5:23 PM CDT COVID - 19 09/28/2023 09/28/2023 10/08/2023 12:1 6 AM ACOUSTICAL INSTALLER Assessment Noted Time PHQ-9 Depression Total Score: 0 12/08/19 11:00 AM CDT documented as of this encounter Care Teams Chrome Polisher Relationship Specialty Start Date End Date Tristan Mills MD #2 [facility] [address] [place] [address] PCP - General Family Medicine 09/01/17 Laura Michaels MD #2 [facility] [address] [place] [address] Consulting Physician Urology 09/25/18 Cristofer Wilson MD #2 [facility] [address] [place] [address] General Surgery 09/25/18 Esteban Carpenter MD #2 [facility] [address] [place] [address] Consulting Physician Colon and Rectal Surgery 10/06/23 Mejia Ayon MD #2 [facility] [address] [place] [address] Consulting Physician Urology 02/29/24 documented as of this encounter
--- OUTSIDE RECORDS SUMMARY | 2024-10-12 14:36 | XMS_ITS | Encounter Summary ---
Author Organization [facility] Address [address] [place] [address] [place] [address] Phone Care Team Providers Care Hand Tacker Name Role Phone Tristan Mills MD Primary Care Provider [phone] Laura Michaels MD Unavailable [phone] Cristofer Wilson MD Unavailable [phone] Esteban Carpenter MD Unavailable Mejia Ayon MD Unavailable Reason for Visit * Reason Comments Medication Refill Encounter Details Date Type Department Care Team (Late st Contact Info) Description 08/07/2020 Refill [facility] [address] [place] [address] Tristan Mills MD #[address] [address] Medication Refill Social History Tobacco Use Types [...] COVID-19? 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 Requested Prescriptions Pending Prescriptions Disp Refills busPIRone (BUSPAR) 15 MG Tablet [Pharmacy Med Name: BUSPIRONE HCL 15 MG TABLET] 60 Tab 0 Sig: TAKE 1 TABLET BY MOUTH TWICE A DAY Not Delegated - Psychiatry: Anxiolytics/Hypnotics Failed - 08/07/2020 2:26 AM Failed - This refill cannot be delegated Passed - Valid encounter within last 6 months Past Office Visits Recent Outpatient Visits 1 week ago Chronic right shoulder pain [facility] - Brooks Raphael APN, CNP 1 month ago Left inguinal hernia [facility] - Tristan Luciano MD 2 months ago Essential hypertension [facility] - Brooks Raphael APN, NILES 2 months ago Nephrolithiasis [facility] Brooks Raphael APN, NILES 5 months ago [facility] Luciano MD Upcoming Appointments Future Appointments In 3 weeks Tristan Milsl MD [facility] TELEVISION CABLE INSTALLER - Recent and Past Visits Recent Visits Date Type Provider Dept 07/25/20 Office Visit Brooks Vazquez APN, CNP [facility] 06/25/20 Office Visit Tristan Mills MD [facility] 06/02/20 Office Visit Brooks Vazquez APN, NILES [facility] 05/21/20 Office Visit Brooks Vazquez APN, NILES [facility] 02/29/20 Office Visit Tristan Mills MD [facility] 10/30/19 Office Visit Tristan Mills MD [facility] 07/26/19 Office Visit Tristan Mills MD [facility] 05/28/19 Office Visit Khadijah[facility]brando Magaly Peralta, [facility] Showing recent visits within past 460 days with a meds authorizing provider and meeting all other requirements Future Appointments Date Type Provider Dept 09/02/20 Appointment Tristan Mills MD [facility] Showing future appointments within next 90 days with a meds authorizing provider and meeting all other requirements CELL ASSEMBLY SUPERVISOR documented in this encounter Plan of Treatment Not on file documented as of this encounter Visit Diagnoses Not on filedocumented in this encounter Additional Health Concerns Infection Onset Date Last Indicated Resolved Time COVID - 19 03/06/2021 03/06/2021 03/07/2021 8:43 AM CDT COVID - 19 08/13/2021 08/17/2021 09/06/2021 12:1 6 AM DRY CELL ASSEMBLY SUPERVISOR COVID - 19 Confirmed 08/17/2021 08/17/2021 022 12:16 AM DRY CELL ASSEMBLY SUPERVISOR COVID - 19 04/11/2022 04/11/2022 04/21/2022 12:1 6 AM CDT COVID - 19 07/28/2022 07/28/2022 08/07/2022 12:1 6 AM DRY CELL ASSEMBLY SUPERVISOR Influenza 07/28/2022 07/28/2022 08/04/2022 12:1 6 AM DRY CELL ASSEMBLY SUPERVISOR Respiratory Rule Out - RPA 06/23/2023 06/23/2023 1 08/23/2022 5:23 PM CDT COVID - 19 09/28/2023 09/28/2023 10/08/2023 12:1 6 AM DRY CELL ASSEMBLY SUPERVISOR Assessment Noted Time PHQ-9 Depression Total Score: 0 06/25/20 20 4:52 PM DRY CELL ASSEMBLY SUPERVISOR documented as of this encounter Care Teams Hand Tacker Relationship Specialty Start Date End Date Tristan Mills MD #2 [place] [id number] PCP - General Family Medicine 09/01/17 Laura Michaels MD #[address] [address] Consulting Physician Urology 09/25/18 Cristofer Wilson MD #[address] [address] General Surgery 09/25/18 Esteban Carpenter MD #[address] [address] Consulting Physician Colon and Rectal Surgery 10/06/23 Mejia Ayon MD #[address] [address] Consulting Physician Urology 02/29/24 documented as of this encounter
--- OUTSIDE RECORDS SUMMARY | 2024-10-12 14:36 | XMS_ITS | Encounter Summary ---
Author Organization [facility] Address [address] [place] [address] Phone Care Team Providers Care Cut Off Sawyer [place] [place] Name Role Phone Tristan Mills MD Primary Care Provider [phone] Laura Michaels MD Unavailable [phone] Cristofer Wilson MD Unavailable [phone] Esteban Carpenter MD Unavailable Mejia Ayon MD Unavailable Reason for Visit * Reason Comments Medication Refill Encounter Details Date Type Department Care Team (Late st Contact Info) Description 08/27/2022 Refill [facility] #2 [place] [phone] Tristan Mills MD #[address] [address] Medication Refill Social History Tobacco Use Types [...] Coronavirus/COVID-19? No / Unsure 08/01/2022 1:23 PM AIRPORT OPERATIONS SUPERVISOR documented as of this encounter Miscellaneous Notes * Telephone Encounter - Magda Bryson RN - 08/27/2022 3:06 PM CST Medication failed the protocol, provider to review and approve the medication order if appropriate. Requested Prescriptions Pending Prescriptions Disp Refills cyclobenzaprine (FLEXERIL) 5 MG Tablet [Pharmacy Med Name: CYCLOBENZAPRINE 5 MG TABLET] 90 Tablet 1 Sig: TAKE 1 TAB BY MOUTH 3 TIMES DAILY NEEDED FOR MUSCLE SPASMS. Not Delegated - Muscle Relaxants Protocol Failed - 08/27/2022 2:40 PM Failed - This refill cannot be delegated Passed - Visit with relevant provider in past 12 months or upcoming 90 days Recent Visits Date Type Provider Dept 07/05/22 Office Visit Brooks Vazquez APRN, NILES [facility] [place] 03/19/22 Office Visit Tristan Mills MD [facility] 12/07/21 Office Visit Tristan Mills MD [facility] Showing recent visits within past 365 days and meeting all other requirements Future Appointments Date Type Provider Dept 10/05/22 Appointment Tristan Mills MD [facility] Showing future appointments within next 90 days and meeting all other requirements ORT OPERATIONS SUPERVISOR documented in this encounter Plan of Treatment Not on file documented as of this encounter Visit Diagnoses Not on filedocumented in this encounter Additional Health Concerns Infection Onset Date Last Indicated Resolved Time Respiratory Rule Out - RPA 06/23/2023 06/23/2023 1 08/23/2022 5:23 PM CDT COVID - 19 09/28/2023 09/28/2023 10/08/2023 12:1 6 AM AIRPORT OPERATIONS SUPERVISOR Assessment Noted Time PHQ-9 Depression Total Score: 0 12/08/19 22 11:00 AM CDT documented as of this encounter Care Teams Cut Off [place]yer [place] Relationship Specialty Start Date End Date Tristan Mills MD #2 [facility] [address] [place] [address] PCP - General Family Medicine 09/01/17 Laura Michaels MD #2 [facility] [address] [place] [address] Consulting Physician Urology 09/25/18 Cristofer Wilson MD #2 [facility] [address] [place] [address] General Surgery 09/25/18 Esteban Carpenter MD #[address] [address] Consulting Physician Colon and Rectal Surgery 10/06/23 Mejia Ayon MD #2 [facility] [address] [place] [address] Consulting Physician Urology 02/29/24 documented as of this encounter
--- OUTSIDE RECORDS SUMMARY | 2024-10-12 14:36 | XMS_ITS | Encounter Summary ---
Author Organization [facility] Address [address] [place] [address] [address] Phone Care Team Providers Care Senior Controls Technician Name Role Phone Tristan Mills MD Primary Care Provider [phone] Laura Michaels MD Unavailable [phone] Cristofer Wilson MD Unavailable [phone] Esteban Carpenter MD Unavailable Mejia Ayon MD Unavailable Reason for Visit * Reason Comments Medication Refill Encounter Details Date Type Department Care Team (Late st Contact Info) Description 04/30/2022 Refill [facility] - [facility] #2 [place] [phone] Tristan Mills MD #[address] [address] Medication Refill Social History Tobacco Use Types [...] encounter Miscellaneous Notes * Telephone Encounter - Adriana Hebert RN - 04/30/2022 2:24 PM CDT Medication failed the protocol, provider to review and approve the medication order if appropriate. Requested Prescriptions Pending Prescriptions Disp Refills cyclobenzaprine (FLEXERIL) 5 MG Tablet [Pharmacy Med Name: CYCLOBENZAPRINE 5 MG TABLET] 90 Tablet 1 Sig: TAKE 1 TAB BY MOUTH 3 TIMES DAILY NEEDED FOR MUSCLE SPASMS. Not Delegated - Muscle Relaxants Protocol Failed - 04/30/2022 2:18 PM Failed - This refill cannot be delegated Passed - Visit with relevant provider in past 12 months or upcoming 90 days Recent Visits Date Type Provider Dept 03/19/22 Office Visit Tristan Mills MD [facility] 12/07/21 Office Visit Tristan Mills MD [facility] 07/24/21 Office Visit Brooks Vazquez APRN, EXPLORATION MANAGER [facility] [place] Showing recent visits within past 365 days and meeting all other requirements Future Appointments Date Type Provider Dept 06/22/22 Appointment Tristan Mills MD [facility] Showing future appointments within next 90 days and meeting all other requirements documented in this encounter Plan of Treatment Not on file documented as of this encounter Visit Diagnoses Not on filedocumented in this encounter Additional Health Concerns Infection Onset Date Last Indicated Resolved Time COVID - 19 07/28/2022 07/28/2022 08/07/2022 12:1 6 AM FRUIT DUMPER Influenza 07/28/2022 07/28/2022 08/04/2022 12:1 6 AM FRUIT DUMPER Respiratory Rule Out - RPA 06/23/2023 06/23/2023 1 08/23/2022 5:23 PM CDT COVID - 19 09/28/2023 09/28/2023 10/08/2023 12:1 6 AM FRUIT DUMPER Assessment Noted Time PHQ-9 Depression Total Score: 0 12/08/19 22 11:00 AM CDT documented as of this encounter Care Teams Senior Controls Technician Relationship Specialty Start Date End Date Tristan Mills MD #2 [facility] [address] [place] [address] PCP - General Family Medicine 09/01/17 Laura Michaels MD #2 [facility] [address] [place] [address] Consulting Physician Urology 09/25/18 Cristofer Wilson MD #2 [facility] [address] [place] [address] General Surgery 09/25/18 Esteban Carpenter MD #2 [facility] [address] [place] [address] Consulting Physician Colon and Rectal Surgery 10/06/23 Mejia Ayon MD #2 [facility] [address] [place] [address] Consulting Physician Urology 02/29/24 documented as of this encounter
[2024-10-12 14:41] VITALS: BP 153/89; PULSE 97; RESP 18; TEMP 36.1; O2SAT 100
== END 2024-10-12 15:16 | disposition home or self-care (01) ==
PROVIDERS: Emergency Provider Nurse Practitioner Family; PCP Family Medicine
DX: J06.9 Acute upper respiratory infection, unspecified (principal); Z79.899 Other long term (current) drug therapy; Z79.84 Long term (current) use of oral hypoglycemic drugs
CPT/HCPCS: 99213; G0463